=== PATIENT | male | born 1945 | race Caucasian/White ===

== ENCOUNTER → 2020-06-28 10:45 | Outpatient (BNVA) | payer MEDICARE, SELFPAY | PROVIDERS: PCP Internal Medicine; Visit Provider Internal Medicine | DX: I48.19 Other persistent atrial fibrillation (principal); Z51.81 Encounter for therapeutic drug level monitoring; Z79.01 Long term (current) use of anticoagulants | CPT/HCPCS: 85610; 99211 ==

== ENCOUNTER → 2020-07-13 10:02 | Outpatient (BNVA) | payer MEDICARE, SELFPAY | PROVIDERS: PCP Internal Medicine; Referring Provider Internal Medicine; Visit Provider Internal Medicine | DX: I48.19 Other persistent atrial fibrillation (principal); Z51.81 Encounter for therapeutic drug level monitoring; Z79.01 Long term (current) use of anticoagulants | CPT/HCPCS: 85610; 99211 ==

== ENCOUNTER → 2020-07-27 10:31 | Outpatient (BNVA) | payer MEDICARE, SELFPAY | PROVIDERS: PCP Internal Medicine; Visit Provider Internal Medicine | DX: I48.19 Other persistent atrial fibrillation (principal); Z51.81 Encounter for therapeutic drug level monitoring; Z79.01 Long term (current) use of anticoagulants | CPT/HCPCS: 85610; 99211 ==

== ENCOUNTER 2020-08-03 12:27 | Outpatient (REF) | payer MEDICARE, SELFPAY ==
--- NOTE | 2020-08-03 | US_ITS ---
EXAMINATION: US RETROPERITONEAL LIMITED (RENAL ONLY) CLINICAL INFORMATION: Malignant neoplasm of left kidney. COMPARISON: CT abdomen and pelvis 01/06/2020. Renal ultrasound 09/10/2018. Ultrasound abdomen 07/08/2017. TECHNIQUE: Real-time imaging of the kidneys. FINDINGS: RIGHT KIDNEY: 14.5 x 6.7 x 6.2 cm (SAG x AP x TRV). The kidney is normal in size, contour, and echogenicity. Renal cortical thickness is normal. No calculi or focal parenchymal lesions. No hydronephrosis. LEFT KIDNEY: Surgically absent. US/US renal BI IMPRESSION: Surgically absent left kidney with no mass in the resection bed. Normal appearance of the right kidney.
--- NOTE | 2020-08-03 13:04 | XR_ITS ---
EXAMINATION: XR CHEST CLINICAL INFORMATION: Malignant neoplasm of left kidney COMPARISON: Prior chest CT March 2020 Chest x-ray January 2020 TECHNIQUE: 2 views of the chest FINDINGS: Lungs clear. Cardiac silhouette mediastinum and pulmonary vascularity normal except for a hiatal hernia with air-fluid levels unchanged. Spondylosis of the dorsal spine. XR/XR chest 2V IMPRESSION: No acute disease. Hiatal hernia.
== END 2020-08-03 12:28 | disposition home or self-care (01) ==
LOC: HO.US 12:27
PROVIDERS: PCP Internal Medicine; Visit Provider Urology
DX: C64.2 Malignant neoplasm of left kidney, except renal pelvis (principal)
CPT/HCPCS: 71046; 76775

== ENCOUNTER → 2020-08-11 14:48 | Outpatient (BNVA) | payer MEDICARE, SELFPAY | PROVIDERS: PCP Internal Medicine; Referring Provider Internal Medicine; Visit Provider Urology | DX: Z76.89 Persons encountering health services in other specified circumstances (principal) | CPT/HCPCS: Q3014 ==

== ENCOUNTER → 2020-08-24 10:38 | Outpatient (BNVA) | payer MEDICARE, SELFPAY | PROVIDERS: PCP Internal Medicine; Visit Provider Internal Medicine | DX: I48.19 Other persistent atrial fibrillation (principal); Z51.81 Encounter for therapeutic drug level monitoring; Z79.01 Long term (current) use of anticoagulants | CPT/HCPCS: 85610; 99211 ==

== ENCOUNTER 2020-09-19 13:30 | Outpatient (REF) | payer MEDICARE, SELFPAY | END 2020-09-19 13:31 | disposition home or self-care (01) | LOC: CF 13:30 | PROVIDERS: Visit Provider Internal Medicine | DX: Z13.89 Encounter for screening for other disorder (principal) ==

== ENCOUNTER → 2020-09-19 13:56 | Outpatient (BNV) | payer MEDICARE, SELFPAY | PROVIDERS: PCP Internal Medicine; Visit Provider Internal Medicine Medical Oncology | DX: C64.2 Malignant neoplasm of left kidney, except renal pelvis (principal) | CPT/HCPCS: 99212; 99213; 99214 ==

== ENCOUNTER → 2020-10-05 10:36 | Outpatient (BNVA) | payer MEDICARE, SELFPAY | PROVIDERS: PCP Internal Medicine; Visit Provider Internal Medicine | DX: I48.19 Other persistent atrial fibrillation (principal); Z51.81 Encounter for therapeutic drug level monitoring; Z79.01 Long term (current) use of anticoagulants | CPT/HCPCS: 85610; 99211 ==

== ENCOUNTER → 2020-10-26 10:40 | Outpatient (BNVA) | payer MEDICARE, SELFPAY | PROVIDERS: PCP Internal Medicine; Visit Provider Internal Medicine | DX: I48.19 Other persistent atrial fibrillation (principal); Z51.81 Encounter for therapeutic drug level monitoring; Z79.01 Long term (current) use of anticoagulants | CPT/HCPCS: 85610; 99211 ==

== ENCOUNTER → 2020-11-16 10:54 | Outpatient (BNVA) | payer MEDICARE, SELFPAY | PROVIDERS: PCP Internal Medicine; Visit Provider Internal Medicine | DX: I48.19 Other persistent atrial fibrillation (principal); Z51.81 Encounter for therapeutic drug level monitoring; Z79.01 Long term (current) use of anticoagulants | CPT/HCPCS: 85610; 99211 ==

== ENCOUNTER → 2020-12-14 10:27 | Outpatient (BNVA) | payer MEDICARE, SELFPAY | PROVIDERS: PCP Internal Medicine; Visit Provider Internal Medicine | DX: I48.19 Other persistent atrial fibrillation (principal); Z51.81 Encounter for therapeutic drug level monitoring; Z79.01 Long term (current) use of anticoagulants | CPT/HCPCS: 85610; 99211 ==

== ENCOUNTER → 2021-01-04 10:32 | Outpatient (BNVA) | payer MEDICARE, SELFPAY | PROVIDERS: PCP Internal Medicine; Visit Provider Internal Medicine | DX: I48.19 Other persistent atrial fibrillation (principal); Z79.01 Long term (current) use of anticoagulants; Z51.81 Encounter for therapeutic drug level monitoring | CPT/HCPCS: 85610; 99211 ==

== ENCOUNTER → 2021-01-15 13:03 | Outpatient (BNVA) | payer MEDICARE, SELFPAY | PROVIDERS: PCP Internal Medicine; Visit Provider Internal Medicine | DX: I48.19 Other persistent atrial fibrillation (principal); Z79.01 Long term (current) use of anticoagulants; Z51.81 Encounter for therapeutic drug level monitoring | CPT/HCPCS: 85610; 99211 ==

== ENCOUNTER 2021-01-17 09:02 | Outpatient (RCR) | payer MEDICARE, SELFPAY | END 2021-01-19 11:26 | disposition home or self-care (01) | LOC: HO.WCC 09:02 | PROVIDERS: Visit Provider Surgery | DX: I87.303 Chronic venous hypertension (idiopathic) without complications of bilateral lower extremity (principal) | CPT/HCPCS: 99212 ==

== ENCOUNTER 2021-01-18 11:57 | Outpatient (REF) | payer MEDICARE, SELFPAY ==
[2021-01-18 13:30] LABS: Blood Urea Nitrogen 15 mg/dL (9-16); Estimated Glomerular Filt Rate > 60
== END 2021-01-18 11:58 | disposition home or self-care (01) ==
LOC: HO.LAB 11:57
PROVIDERS: Visit Provider Urology
DX: C64.9 Malignant neoplasm of unspecified kidney, except renal pelvis (principal)
CPT/HCPCS: 36415; 82565; 84520

== ENCOUNTER 2021-01-23 10:58 | Outpatient (REF) | payer MEDICARE, SELFPAY ==
--- NOTE | ~2021-01-23 | CT_ITS ---
EXAMINATION: CT ABDOMEN WITHOUT AND WITH CONTRAST CLINICAL INFORMATION: Malignant neoplasm of unspecified kidney. COMPARISON: Renal ultrasound 08/03/2020. TECHNIQUE: Contiguous axial thin section helical images of the abdomen were performed before and after the administration of oral contrast and 85 mL of Omnipaque 350 intravenous contrast. The data set was reformatted in the coronal and sagittal planes and reviewed on an independent workstation. This CT examination was performed using dose optimization techniques as appropriate, variously including the following: *Automated exposure control *Adjustment of mA and/or kV according to patient size (this includes techniques or standardized protocols for targeted exams where dose is matched to indication/reason for exam; i.e. extremities or head) *Use of iterative reconstruction technique DLP: 1150 mGy-cm. FINDINGS: LUNG BASES: The lung bases are clear. The heart size is normal. No pericardial effusion seen. There is a large hiatal hernia. LIVER, GALLBLADDER, AND BILIARY TREE: The liver is homogeneous in density, normal size and normal contour. No focal lesion or intrahepatic ductal dilatation seen. The gallbladder is unremarkable with no radiopaque calculi. PANCREAS: The pancreas is homogeneous in density and appears unremarkable. SPLEEN: The spleen is normal size and density. ADRENAL GLANDS AND KIDNEYS: Adrenal glands are unremarkable. The left kidney has been surgically removed. The right kidney is normal size, shape and density. There is no radiopaque renal calculi, enhancing renal mass, cyst or hydronephrosis. Right kidney measures 12.2 cm in length. BOWEL LOOPS: There is scattered stool and gas seen throughout the colon without significant distention. The small bowel loops are normal caliber. There is no free air, free fluid or inflammatory process. There is a small umbilical hernia containing fat. LYMPH NODES: No abnormal-sized retroperitoneal or mesenteric lymph nodes seen. VASCULAR: There is proximal abdominal aortic ectasia without dilation. BONES: No lytic or sclerotic process seen. There are degenerative disc changes and spondylosis with vacuum disc phenomena throughout the lumbar spine. There is moderate right L4-L5 and bilateral L3-L4 and L2-L3 facet joint arthropathy. No lytic process seen. CT/CT abdomen wo/w con IMPRESSION: Left nephrectomy. The right kidney is unremarkable. No abnormal-sized retroperitoneal lymph nodes seen. Small umbilical hernia containing fat.
[2021-01-23] MEDS: iohexoL 350 MG/ML 100 ML INFUS..BTL IV (12:48)
== END 2021-01-23 10:59 | disposition home or self-care (01) ==
LOC: HO.CT 10:58
PROVIDERS: Visit Provider Urology
DX: I48.19 Other persistent atrial fibrillation (principal); C64.9 Malignant neoplasm of unspecified kidney, except renal pelvis; Z51.81 Encounter for therapeutic drug level monitoring; Z79.01 Long term (current) use of anticoagulants
CPT/HCPCS: 74170; 85610; 99211; Q9967

== ENCOUNTER → 2021-02-01 10:42 | Outpatient (BNVA) | payer MEDICARE, SELFPAY | PROVIDERS: Visit Provider Internal Medicine | DX: I48.19 Other persistent atrial fibrillation (principal); Z51.81 Encounter for therapeutic drug level monitoring; Z79.01 Long term (current) use of anticoagulants | CPT/HCPCS: 85610; 99211 ==

== ENCOUNTER → 2021-02-07 10:48 | Outpatient (BNVA) | payer MEDICARE, SELFPAY | PROVIDERS: Visit Provider Internal Medicine | DX: I48.19 Other persistent atrial fibrillation (principal); Z51.81 Encounter for therapeutic drug level monitoring; Z79.01 Long term (current) use of anticoagulants | CPT/HCPCS: 85610; 99211 ==

== ENCOUNTER → 2021-03-21 10:26 | Outpatient (BNVA) | payer MEDICARE, SELFPAY | PROVIDERS: PCP Internal Medicine; Visit Provider Internal Medicine | DX: I48.19 Other persistent atrial fibrillation (principal); Z51.81 Encounter for therapeutic drug level monitoring; Z79.01 Long term (current) use of anticoagulants | CPT/HCPCS: 85610; 99211 ==

== ENCOUNTER → 2021-04-13 11:11 | Outpatient (BNVA) | payer MEDICARE, SELFPAY | PROVIDERS: PCP Internal Medicine; Visit Provider Internal Medicine | DX: I48.19 Other persistent atrial fibrillation (principal); Z51.81 Encounter for therapeutic drug level monitoring; Z79.01 Long term (current) use of anticoagulants | CPT/HCPCS: 85610; 99211 ==

== ENCOUNTER 2021-04-21 11:19 | Emergency (ER) | payer MEDICARE, SELFPAY ==
[2021-04-21 11:26] VITALS: BP 172/79; PULSE 73; RESP 17; TEMP 36.6; O2SAT 96; BMI 41.1
--- NOTE | 2021-04-21 11:42 | ED.GENADULT ---
HPI - General Adult General Chief complaint: General Medical Stated complaint: Cellulitis Time Seen by Provider: 04/21/21 11:42 Source: patient Mode of arrival: ambulatory Limitations: no limitations History of Present Illness HPI narrative: 75 yo male with hx of afib, HTN, chronic LE swelling has been on oral antibiotics since december for a LE rash, not able to use stockings cannot put them on himself, seeing a lymphedema doctor soon, sent by his PCP for IV abx from [facility] as he states they cannot do anything else for him at this point, he is not on antibiotics or ointments now, no change in swelling but notes some more weeping, no other complaints or associated symptoms MD complaint: skin lesions Onset (ago): month(s) Location: left, right and lower extremity Radiation: non-radiation Severity: mild Quality: aching Pain Consistency: intermittent Relieving factors: none Exacerbating factors: none Associated symptoms: other (chronic swelling and skin rash) Treatments prior to arrival: none Related Data Home Medications Medication Instructions Recorded Confirmed lisinopril 40 mg tablet 40 mg PO DAILY 07/27/20 04/13/21 lovastatin 40 mg tablet 40 mg PO DAILY 07/27/20 04/13/21 metoprolol tartrate 25 mg tablet 25 mg PO BID 07/27/20 04/13/21 omeprazole 40 mg capsule,delayed 40 mg PO DAILY 07/27/20 04/13/21 release ferrous sulfate 325 mg (65 mg 325 mg PO DAILY 09/19/20 04/13/21 iron) tablet (iron) multivitamin-ferrous 1 tab PO DAILY 09/19/20 04/13/21 fumarate-folic acid 18 mg-400 mcg tablet (Centrum) indapamide 1.25 mg tablet 1.25 mg PO DAILY 01/23/21 04/13/21 betamethasone valerate 0.1 % TOPICAL 04/13/21 04/13/21 topical ointment cephalexin 500 mg capsule 500 mg PO BID 04/13/21 04/13/21 doxycycline monohydrate 100 mg 100 mg PO BID 04/13/21 04/13/21 tablet Previous Rx's Medication Instructions Recorded warfarin 5 mg tablet 5 mg PO DAILY #90 tab 06/28/20 finasteride 5 mg tablet 5 mg PO DAILY 90 Days #90 tab 02/01/21 sennosides 8.6 mg-docusate sodium 1 tab-cap PO BID #60 tab 02/14/21 50 mg tablet (Senna-S) tamsulosin 0.4 mg capsule 0.4 mg PO BEDTIME #30 cap 03/05/21 clotrimazole 1 %-betamethasone See Rx Instructions .ROUTE 04/21/21 0.05 % cream-zinc ox 20 % paste .COMPLEX #135 g topical warren.stocking,knee,reg,smal #12 ea 04/21/21 (T.E.D. Anti-Embolism Stocking) Allergies Allergy/AdvReac Type Severity Reaction Status Date / Time aspirin [ASPIRIN] Allergy Unknown GI BLEED Verified 04/21/21 11:25 Review of Systems Review of Systems: Constitutional : No Fever, No Chills ENT/Mouth : No sore throat, No Rhinorrhea Eyes: No Eye Pain, No Swelling, No Redness Cardiovascular : No Chest Pain, No SOB, pos LE edema Respiratory : No Cough, No Sputum Gastrointestinal : No Nausea, No Vomiting, No Diarrhea, No abdominal Pain Genitourinary : No Dysuria, No Hematuria Musculoskeletal : No joint pain, No Myalgias, No Joint Swelling Skin : No Skin Lesions, positive skin rash Neuro : No Weakness, No Numbness, No Headache Psych : No Anxiety, No Depression Heme/Lymph: No Bruising, No Bleeding,No Lymphadenopathy Endocrine : No Polyuria, No Polydipsia All other systems reviewed and are negative [facility] Past Medical History Attestation statement: The following information was validated with the patient. Medical History (Updated 04/21/21 @ 14:34 by Diandra Smith DO) Afib BPH (benign prostatic hyperplasia) Chronic venous stasis dermatitis GERD (gastroesophageal reflux disease) H/O renal cell cancer Hyperlipemia Hypertension Surgical History History of nephrectomy, left Family History Family History (Updated 09/19/20 @ 14:28 by Jonna Mitchell RN) Father Colon cancer Social History Social History (Updated 04/21/21 @ 12:08 by Diandra Smith DO) Alcohol intake: current Alcohol intake frequency: holidays/special occasions only Patient Tobacco Use Status: Never used Tobacco Advance Directives: Yes Advance Directives Information Provided: Yes Advance Directives on File: No Physical Exam Vital Signs: Vital Signs: Last Vital Signs Temp 98.7 F 04/21/21 15:34 Pulse 67 04/21/21 15:34 Resp 16 04/21/21 15:34 BP 160/79 H 04/21/21 15:34 Pulse Ox 97 04/21/21 15:34 Body Mass Index 41.1 Appearance: Alert. Oriented X3. No acute distress. Eyes: Pupils equal, round and reactive to light. ENT: Pharynx normal. Neck: Normal inspection. Neck supple. CVS: Normal heart rate and rhythm. Pulses normal. Respiratory: No respiratory distress. Breath sounds normal. Abdomen: Soft and nontender. Skin: Skin warm and dry. Normal skin color. Normal skin turgor. Extremities: bilateral LE pitting 1 to 2+ edema, hyperpigmentation and scaling rash to lower extremities with yellow crusting but no ulcers, no fluctuance, minimal pink skin, no warmth Neuro: Oriented X 3. No motor deficit. No sensory deficit. Course Course Course Narrative: MDM: 75 yo male with hx of afib, HTN, chronic LE swelling has been on oral antibiotics since december for a LE rash, not able to use stockings cannot put them on himself, seeing a lymphedema doctor soon, sent by his PCP for IV abx from [facility] as he states they cannot do anything else for him at this point, he is not on antibiotics or ointments now, no change in swelling but notes some more weeping, no other complaints or associated symptoms at this time his legs do not appear infected, he has no open wounds, he needs good cleaning, topical ointments, AMBER stockings, this is chronic venous stasis dermatitis he has 2+ DP pulses, will refer to VNA as well as our wound center and he needs topical anti fungal and steroids at this time, I do not feel that he needs admission or IV antibiotics as there is no acute cellulitis laying flat no signs of resp distress, no signs of clinical CHF, will instruct patient to follow up with [facility]NA at home and wound care center Discharge Plan Discharge Clinical Impression: Chronic venous stasis dermatitis Patient Disposition: Home, Self-Care Instructions: Stasis Dermatitis (ED) Additional Instructions: return to ED for any worsening symptoms or concerns wear stockings INR 3.5 hold dose x 2 days recheck INR Prescriptions: New clotrimazole-betameth dip-zinc 1-0.05-20 % combo pack See Rx Instructions .ROUTE .COMPLEX Qty: 135 RF: 0 (DME) T.E.D. Anti-Embolism Stocking Misc See Rx Instructions .Route Qty: 12 RF: 0 No Action finasteride 5 mg tablet 5 mg PO DAILY 90 Days Qty: 90 RF: 3 tamsulosin 0.4 mg capsule 0.4 mg PO BEDTIME Qty: 30 RF: 2 ferrous sulfate [iron] 325 mg (65 mg iron) Tablet 325 mg PO DAILY RF: 0 Centrum 18-400 mg-mcg Tablet 1 tab PO DAILY RF: 0 sennosides-docusate sodium [Senna-S] 8.6-50 mg Tablet 1 tab-cap PO BID Qty: 60 RF: 5 warfarin 5 mg tablet 5 mg PO DAILY Qty: 90 RF: 0 metoprolol tartrate 25 mg tablet 25 mg PO BID RF: 0 lovastatin 40 mg tablet 40 mg PO DAILY RF: 0 omeprazole 40 mg capsule,delayed release(DR/EC) 40 mg PO DAILY RF: 0 lisinopril 40 mg tablet 40 mg PO DAILY RF: 0 indapamide 1.25 mg tablet 1.25 mg PO DAILY RF: 0 cephalexin 500 mg capsule 500 mg PO BID RF: 0 doxycycline monohydrate 100 mg tablet 100 mg PO BID RF: 0 betamethasone valerate 0.1 % ointment topical RF: 0 Referrals: [facility] [Outside] - 2 days (PLEASE CALL ABOVE NUMBER IF YOU HAVE NOT HEARD FROM A NURSE BY NOON ON 04/22/21.) Sydney Bardales MD [Primary Care Provider] - 5 days Interventions: ED Discharge Assessment Last Done: 04/21/21 15:38 Discharge Date/Time: 04/21/21 15:38
[2021-04-21 12:32] LABS: MANUAL DIFF FLAG NO
[2021-04-21 12:39] LABS: Basophils Percent Auto 0.5 % (0-2); Eosinophils Absolute Auto 0.3 X10*3/uL (0.0-0.4); Eosinophils Percent Auto 4.1 % (0-4); Hematocrit 38.6 % (42-52); Hemoglobin 12.9 g/dl (14.0-18.0); Imm Gran Abs Auto 0.02 X10*3/uL (0.00-0.03); Imm Gran Pct Auto 0.3 % (0.0-0.4); Lymphocytes Absolute Auto 0.7 X10*3/uL (1.2-4.9); Lymphocytes Percent Auto 10.9 % (20-40); Mean Corpuscular HGB Conc 33.4 g/dl (31.0-36.0); Mean Corpuscular Hemoglobin 34.3 pg (27.0-33.0); Mean Corpuscular Volume 102.7 fL (80-98); Mean Platelet Volume 9.8 fL (9.4-12.4); Monocytes Absolute Auto 0.5 X10*3/uL (0.1-1.2); Monocytes Percent Auto 8.6 % (2-11); Neutrophils Absolute Auto 4.6 X10*3/uL (2.0-8.3); Neutrophils Percent Auto 75.6 % (45-73); Platelet Count 188 X10*3/uL (160-400); Red Blood Count 3.76 X10*6/uL (4.60-5.80); Red Cell Distribution Width 13.4 % (11.0-16.0); White Blood Count 6.1 X10*3/uL (4.8-10.8)
[2021-04-21 12:49] LABS: INTERNATIONAL NORM RATIO 3.5 (0.9-1.1); Prothrombin Time 40.3 SEC (9.9-13.0)
[2021-04-21 12:59] VITALS: BP 167/77; PULSE 68; RESP 18; TEMP 36.6; O2SAT 97
[2021-04-21 13:03] LABS: Anion Gap 13 (12-20); Blood Urea Nitrogen 15 mg/dL (9-16); C Reactive Protein 0.73 mg/dL (< or = 0.50); Calcium 8.8 mg/dL (8.4-10.2); Carbon Dioxide 28 mmol/L (22-29); Chloride 104 mmol/L (96-108); Creatinine Clr Calc Pharmacy 81.9; Estimated Glomerular Filt Rate > 60; Glucose Random 113 mg/dL (60-115); Potassium 3.9 mmol/L (3.3-5.1); Sodium 141 mmol/L (135-145)
[2021-04-21 13:08] LABS: B Type Natriuretic Peptide 361 pg/mL (<100)
[2021-04-21 14:15] VITALS: BP 161/79; PULSE 78; RESP 18; TEMP 36.4; O2SAT 98
--- NOTE | 2021-04-21 15:13 | MHC.CM.PN ---
Pt presents w/increased swelling, discomfort and venous stasis dermatitis to BLE, CM met w/pt who reports he lives alone, has a cleaning lady weekly through [facility] and no other services, pt reports having a walker and cane at home and does not use them around the house, pt does his own cooking and ADL's however has not been able to manage his BLE wounds. ED provider and pt both in agreement he needs VNA services. Pt's first choice was [facility] however additional referral made to [facility] who was the only [facility]NA who responded to referral. D/C PLAN: [facility], FRIEND FOR TRANSPORT
[2021-04-21 15:34] VITALS: BP 160/79; PULSE 67; RESP 16; TEMP 37.1; O2SAT 97
--- NOTE | 2021-04-21 15:35 | PC.NURSE ---
DRESSING WAS APPLIED TO PATIENT BOTH FEET BY THIS PCT .
== END 2021-04-21 15:38 | disposition home or self-care (01) ==
PROVIDERS: Emergency Provider Emergency Medicine; PCP Internal Medicine
DX: I87.2 Venous insufficiency (chronic) (peripheral) (principal); M79.89 Other specified soft tissue disorders; I48.91 Unspecified atrial fibrillation; I10 Essential (primary) hypertension; Z85.53 Personal history of malignant neoplasm of renal pelvis; Z79.01 Long term (current) use of anticoagulants; Z79.899 Other long term (current) drug therapy
CPT/HCPCS: 36415; 80048; 83880; 85025; 85610; 86140; 97161; 99283; 99284

== ENCOUNTER → 2021-04-24 16:24 | Outpatient (BNVA) | payer MEDICARE, SELFPAY | PROVIDERS: PCP Internal Medicine; Visit Provider Internal Medicine | DX: I48.19 Other persistent atrial fibrillation (principal); Z51.81 Encounter for therapeutic drug level monitoring; Z79.01 Long term (current) use of anticoagulants | CPT/HCPCS: Q3014 ==

== ENCOUNTER → 2021-05-04 12:04 | Outpatient (BNVA) | payer MEDICARE, SELFPAY | PROVIDERS: PCP Internal Medicine; Visit Provider Internal Medicine ==

== ENCOUNTER 2021-05-09 12:44 | Outpatient (RCR) | payer MEDICARE, SELFPAY | END 2021-05-17 10:47 | disposition home or self-care (01) | LOC: HO.WCC 12:44 | PROVIDERS: PCP Internal Medicine; Visit Provider Surgery | DX: I89.0 Lymphedema, not elsewhere classified (principal) | CPT/HCPCS: 99211; Q3014 ==

== ENCOUNTER → 2021-05-23 10:43 | Outpatient (BNVA) | payer MEDICARE, SELFPAY | PROVIDERS: PCP Internal Medicine; Visit Provider Internal Medicine | DX: I48.19 Other persistent atrial fibrillation (principal); Z51.81 Encounter for therapeutic drug level monitoring; Z79.01 Long term (current) use of anticoagulants | CPT/HCPCS: 85610; 99211 ==

== ENCOUNTER 2021-06-01 07:35 | Inpatient (IN) | payer MEDICARE, SELFPAY ==
--- NOTE | 2021-06-01 07:45 | ED_ITS ---
HPI - Skin/Abscess/Foreign Bdy General Chief complaint: General Medical Stated complaint: cellulitis Time Seen by Provider: 06/01/21 07:45 Source: patient, EMS and old records reviewed Mode of arrival: EMS Limitations: no limitations History of Present Illness MD complaint: lesion and discoloration Onset (ago): day(s) (1) Tetanus up to date: yes Location: RLE Severity: moderate Quality: aching and constant Pain Consistency: constant Relieving factors: none Exacerbating factors: palpation Context: other (hx of lymphedema with prior chronic wounds that have been treated well by wound care and VNA - both wound care and VNA released him) Associated symptoms: chills, nausea and malaise Treatments prior to arrival: bandages and OTC topical medication Related Data Home Medications Medication Instructions Recorded Confirmed lisinopril 40 mg tablet 40 mg PO DAILY 07/27/20 06/01/21 lovastatin 40 mg tablet 40 mg PO DAILY 07/27/20 06/01/21 metoprolol tartrate 25 mg tablet 25 mg PO BID 07/27/20 06/01/21 omeprazole 40 mg capsule,delayed 40 mg PO DAILY 07/27/20 06/01/21 release ferrous sulfate 325 mg (65 mg 325 mg PO DAILY 09/19/20 06/01/21 iron) tablet (iron) multivitamin-ferrous 1 tab PO DAILY 09/19/20 06/01/21 fumarate-folic acid 18 mg-400 mcg tablet (Centrum) indapamide 1.25 mg tablet 1.25 mg PO DAILY 01/23/21 06/01/21 warfarin 5 mg tablet 7.5 mg PO DAILY 06/01/21 06/01/21 Previous Rx's Medication Instructions Recorded finasteride 5 mg tablet 5 mg PO DAILY 90 Days #90 tab 02/01/21 sennosides 8.6 mg-docusate sodium 1 tab-cap PO BID #60 tab 02/14/21 50 mg tablet (Senna-S) clotrimazole 1 %-betamethasone See Rx Instructions .ROUTE 04/21/21 0.05 % cream-zinc ox 20 % paste .COMPLEX #135 g topical warren.stocking,knee,reg,smal #12 ea 04/21/21 (T.E.D. Anti-Embolism Stocking) tamsulosin 0.4 mg capsule 0.4 mg PO BEDTIME #90 cap 05/29/21 Allergies Allergy/AdvReac Type Severity Reaction Status Date / Time aspirin [ASPIRIN] Allergy Unknown GI BLEED Verified 05/23/21 10:44 Review of Systems Review of Systems: Constitutional : No Fever, pos Chills ENT/Mouth : No sore throat, No Rhinorrhea Eyes: No Eye Pain, No Swelling, No Redness Cardiovascular : No Chest Pain, No SOB Respiratory : No Cough, No Sputum Gastrointestinal : pos Nausea, No Vomiting, No Diarrhea, No abdominal Pain Genitourinary : No Dysuria, No Hematuria Musculoskeletal : No joint pain, No Myalgias, No Joint Swelling Skin : No Skin Lesions, positive skin rash Neuro : No Weakness, No Numbness, No Headache Psych : No Anxiety, No Depression Heme/Lymph: No Bruising, No Bleeding,No Lymphadenopathy Endocrine : No Polyuria, No Polydipsia All other systems reviewed and are negative [facility] Past Medical History Attestation statement: The following information was validated with the patient. Medical History Afib BPH (benign prostatic hyperplasia) Chronic venous stasis dermatitis GERD (gastroesophageal reflux disease) H/O renal cell cancer Hyperlipemia Hypertension Surgical History History of nephrectomy, left Family History Family History (Updated 09/19/20 @ 14:28 by Jonna Mitchell RN) Father Colon cancer Social History Social History Alcohol intake: current Alcohol intake frequency: holidays/special occasions only Patient Tobacco Use Status: Never used Tobacco Advance Directives: No Physical Exam Vital Signs: Vital Signs: Last Vital Signs Temp 99.5 F 06/01/21 08:04 Pulse 98 06/01/21 08:04 Resp 20 06/01/21 08:04 BP 123/57 L 06/01/21 08:30 Pulse Ox 96 06/01/21 08:04 Body Mass Index 40.0 Appearance: Alert. Oriented X3. No acute distress. Eyes: Pupils equal, round and reactive to light. ENT: Pharynx normal. Neck: Normal inspection. Neck supple. CVS: Normal heart rate and rhythm. Pulses normal. Respiratory: No respiratory distress. Breath sounds normal. Abdomen: Soft and nontender. Skin: rash noted, normal turgor Extremities: RLE warm to touch with ttp and marked erythema from ankle to knee area no open wounds or abscess noted, LLE chronic venous stasis dermatitis no signs of infection - markedly improved from last visit Neuro: Oriented X 3. No motor deficit. No sensory deficit. MDM - Skin/Abscess/Foreign Bdy MDM Narrative Medical decision making narrative: 75 yo male with hx of afib on coumadin, BPH, chronic lymphedema with recent DC from [facility] and wound care center at this time noted overnight chills nausea and pain/redness of RLE - exam consistent with cellulitis - will obtain labs, cultures, IV antibiotics and planned admit Lab Data Result diagrams: 06/01/21 08:36 06/01/21 08:36 Labs: Lab Results 06/01/21 06/01/21 06/01/21 Range/Units 08:35 08:36 08:36 WBC 5.4 (4.8-10.8) X10*3/uL RBC 3.67 L (4.60-5.80) X10*6/uL Hgb 12.6 L (14.0-18.0) g/dl Hct 37.6 L (42-52) % MCV 102.5 H (80-98) fL MCH 34.3 H (27.0-33.0) pg MCHC 33.5 (31.0-36.0) g/dl RDW 13.5 (11.0-16.0) % Plt Count 171 (160-400) X10*3/uL MPV 9.6 (9.4-12.4) fL Immature Gran % (Auto) 0.2 (0.0-0.4) % Neut % (Auto) 94.5 H (45-73) % Lymph % (Auto) 3.6 L (20-40) % [place] % (Auto) 0.9 L (2-11) % Eos % (Auto) 0.6 (0-4) % Baso % (Auto) 0.2 (0-2) % Lymph # (Auto) 0.2 L (1.2-4.9) X10*3/uL [place] # (Auto) 0.1 (0.1-1.2) X10*3/uL Eos # (Auto) 0.0 (0.0-0.4) X10*3/uL Baso # (Auto) 0.0 (0.0-0.2) X10*3/uL Abs Immat Gran (auto) 0.01 (0.00-0.03) X10*3/uL Absolute Neuts (auto) 5.1 (2.0-8.3) X10*3/uL Absolute Nucleated RBC 0.000 (0.0-0.012) X10*3/uL Nucleated RBC % (auto) 0.0 (0.0-0.2) /100WBC Smear Tech's Comments VERIFIED PT (9.9-13.0) SEC INR (0.9-1.1) APTT (24.1-38.0) SEC Sodium 141 (135-145) mmol/L Potassium 3.8 (3.3-5.1) mmol/L Chloride 105 (96-108) mmol/L Carbon Dioxide 26 (22-29) mmol/L Anion Gap 14 (12-20) BUN 13 (9-16) mg/dL Creatinine 1.04 (0.5-1.4) mg/dL Estim Creat Clear Calc 85.6 Estimated GFR > 60 Random Glucose 90 (60-115) mg/dL Lactic Acid 2.8 H* (0.5-2.0) mmol/L Calcium 9.0 (8.4-10.2) mg/dL Magnesium (1.6-2.6) mg/dL Total Bilirubin (0.0-1.0) mg/dL Direct Bilirubin (0.0-0.5) mg/dL AST (5-37) U/L ALT (0-40) U/L Alkaline Phosphatase (39-117) U/L Total Protein (6.5-8.0) g/dL Albumin (3.5-5.0) g/dL COVID-19 (JOEY) (Negative) COVID-19 Clin Com 06/01/21 06/01/21 06/01/21 Range/Units 08:36 08:36 08:37 WBC (4.8-10.8) X10*3/uL RBC (4.60-5.80) X10*6/uL Hgb (14.0-18.0) g/dl Hct (42-52) % MCV (80-98) fL MCH (27.0-33.0) pg MCHC (31.0-36.0) g/dl RDW (11.0-16.0) % Plt Count (160-400) X10*3/uL MPV (9.4-12.4) fL Immature Gran % (Auto) (0.0-0.4) % Neut % (Auto) (45-73) % Lymph % (Auto) (20-40) % [place] % (Auto) (2-11) % Eos % (Auto) (0-4) % Baso % (Auto) (0-2) % Lymph # (Auto) (1.2-4.9) X10*3/uL [place] # (Auto) (0.1-1.2) X10*3/uL Eos # (Auto) (0.0-0.4) X10*3/uL Baso # (Auto) (0.0-0.2) X10*3/uL Abs Immat Gran (auto) (0.00-0.03) X10*3/uL Absolute Neuts (auto) (2.0-8.3) X10*3/uL Absolute Nucleated RBC (0.0-0.012) X10*3/uL Nucleated RBC % (auto) (0.0-0.2) /100WBC Smear Tech's Comments PT 36.5 H (9.9-13.0) SEC INR 3.1 H (0.9-1.1) APTT 37.6 (24.1-38.0) SEC Sodium (135-145) mmol/L Potassium (3.3-5.1) mmol/L Chloride (96-108) mmol/L Carbon Dioxide (22-29) mmol/L Anion Gap (12-20) BUN (9-16) mg/dL Creatinine (0.5-1.4) mg/dL Estim Creat Clear Calc Estimated GFR Random Glucose (60-115) mg/dL Lactic Acid (0.5-2.0) mmol/L Calcium (8.4-10.2) mg/dL Magnesium 1.2 L* (1.6-2.6) mg/dL Total Bilirubin 1.0 (0.0-1.0) mg/dL Direct Bilirubin 0.4 (0.0-0.5) mg/dL AST 19 (5-37) U/L ALT 11 (0-40) U/L Alkaline Phosphatase 113 (39-117) U/L Total Protein 6.2 L (6.5-8.0) g/dL Albumin 3.6 (3.5-5.0) g/dL COVID-19 (JOEY) Negative (Negative) COVID-19 Clin Com See Note Discharge Plan Discharge Clinical Impression: Lymphedema, Cellulitis, Acidosis, lactic, Hypomagnesemia Patient Disposition: Admitted As Inpatient
[2021-06-01 08:04] VITALS: BP 112/66; BP 136/42; PULSE 80; PULSE 98; RESP 20; TEMP 37.5; O2SAT 96; BMI 40.0
[2021-06-01 08:30] VITALS: BP 123/57
[2021-06-01 08:54] LABS: Basophils Percent Auto 0.2 % (0-2); Eosinophils Percent Auto 0.6 % (0-4); Hematocrit 37.6 % (42-52); Hemoglobin 12.6 g/dl (14.0-18.0); Imm Gran Abs Auto 0.01 X10*3/uL (0.00-0.03); Imm Gran Pct Auto 0.2 % (0.0-0.4); Lymphocytes Absolute Auto 0.2 X10*3/uL (1.2-4.9); Lymphocytes Percent Auto 3.6 % (20-40); MANUAL DIFF FLAG SCAN; Mean Corpuscular HGB Conc 33.5 g/dl (31.0-36.0); Mean Corpuscular Hemoglobin 34.3 pg (27.0-33.0); Mean Corpuscular Volume 102.5 fL (80-98); Mean Platelet Volume 9.6 fL (9.4-12.4); Monocytes Absolute Auto 0.1 X10*3/uL (0.1-1.2); Monocytes Percent Auto 0.9 % (2-11); Neutrophils Absolute Auto 5.1 X10*3/uL (2.0-8.3); Neutrophils Percent Auto 94.5 % (45-73); Platelet Count 171 X10*3/uL (160-400); Red Blood Count 3.67 X10*6/uL (4.60-5.80); Red Cell Distribution Width 13.5 % (11.0-16.0); SCAN SMEAR FLAG 1; White Blood Count 5.4 X10*3/uL (4.8-10.8)
--- NOTE | 2021-06-01 08:59 | PHA.MEDREC ---
Pharmacy Consult ? Medication Reconciliation Pharmacy has completed the medication reconciliation. Patient confirmed warfarin dose is 7.5mg daily. Pham Mendez, SheronD
[2021-06-01 09:01] LABS: INTERNATIONAL NORM RATIO 3.1 (0.9-1.1); Prothrombin Time 36.5 SEC (9.9-13.0)
[2021-06-01 09:04] LABS: Partial Thromboplastin Time 37.6 SEC (24.1-38.0)
[2021-06-01 09:07] LABS: Anion Gap 14 (12-20); Blood Urea Nitrogen 13 mg/dL (9-16); Carbon Dioxide 26 mmol/L (22-29); Chloride 105 mmol/L (96-108); Creatinine Clr Calc Pharmacy 85.6; Estimated Glomerular Filt Rate > 60; Glucose Random 90 mg/dL (60-115); Potassium 3.8 mmol/L (3.3-5.1); Sodium 141 mmol/L (135-145)
[2021-06-01 09:10] LABS: COVID-19 Test Negative (Negative); IDNOW Serial# 9DD0AD1C
[2021-06-01 09:15] LABS: SLIDE REVIEW VERIFIED
[2021-06-01 09:17] LABS: Albumin Level 3.6 g/dL (3.5-5.0); Alkaline Phosphatase 113 U/L (39-117); Aspartate Amino Transferase 19 U/L (5-37); Bilirubin Direct 0.4 mg/dL (0.0-0.5)
[2021-06-01 09:18] LABS: Alanine Aminotransferase 11 U/L (0-40); Total Protein 6.2 g/dL (6.5-8.0)
[2021-06-01] MEDS: Piperacillin Sodium/Tazobactam 3.375 GM in 0.9 % Sodium Chloride 50 ML IV (09:27)
[2021-06-01] MEDS: vancomycin HCL 1,500 MG in 0.9 % Sodium Chloride 500 ML 333.33 MG IV (09:27)
[2021-06-01 09:33] LABS: Lactic Acid 2.8 mmol/L (0.5-2.0)
[2021-06-01 09:34] LABS: Magnesium 1.2 mg/dL (1.6-2.6)
--- NOTE | 2021-06-01 10:41 | P.HPHOSP_ITS ---
History of Present Illness Date of Service: 06/01/21 Chief Complaint: Right leg pain and redness This is a 75 yo M with a PMH of A. rodrigo on coumadin, lymphedema, Renal cancer - s/p L nephrectomy, HLD who presents to the hospital with complaints of RLE pain, swelling and redness + weeping. Patient reports that he had previously followed up at the wound care clinic and was discharged from there several weeks back. He reports that since then he has been doing fairly well but over the last several days he noticed some pain the RLE from the knee below. It was not too severe, so he did not make much of it. He reports yesterday he started having some chills and over night his pain became so severe that it woke him up from sleep and so he decided to come to the hospital. Upon arrival to the ED he had stable vitals. His RLE was erythematous, tender with edema. His cbc/bmp was within normal limits. He was given broad spec. iv antibiotics -- vancomcyin+zosyn, had cultures collected and admission was requested for further Rx of his cellulitis. Patient endorses that he has been vaccinated against COVID with J&J vaccine. Review of Systems Review of Systems: General - +chills, no fevers; +fatigue HEENT -denies blurred vision, denies headache, denies sore throat Cardiovascular - denies chest pain or palpitations, denies edema Respiratory - denies shortness of breath, coughing, wheezing Gastrointestinal - denies abdominal pain, nausea, vomiting, diarrhea - denies flank pain, denies dysuria, denies frequency or urgency Musculoskeletal - denies back pain, denies hip pain, denies knee pain, denies shoulder pain Neurological - denies any focal weakness or numbness Skin - +RLE pain, redness, swelling and weeping Psychiatric - denies any suicidal ideation, hallucinations, homicidal ideation Endocrinology - denies intolerance to hot / cold temperatures [facility] Medical History Afib BPH (benign prostatic hyperplasia) Chronic venous stasis dermatitis GERD (gastroesophageal reflux disease) H/O renal cell cancer Hyperlipemia Hypertension Family History (Updated 09/19/20 @ 14:28 by Jonna Mitchell RN) Father Colon cancer Surgical History History of nephrectomy, left Social History Alcohol intake: current Alcohol intake frequency: holidays/special occasions only Patient Tobacco Use Status: Never used Tobacco Advance Directives: No Meds Allergies Allergy/AdvReac Type Severity Reaction Status Date / Time aspirin [ASPIRIN] Allergy Unknown GI BLEED Verified 05/23/21 10:44 Active Medications: Current Medications Generic Name Dose Route Start Last Admin Trade Name Freq PRN Reason Stop Dose Admin Magnesium Sulfate 2 gm in 50 mls @ 25 mls/hr 06/01/21 09:34 Magnesium Sulfate/H2o IV 06/01/21 11:33 ONCE ONE Sodium Chloride 500 mls @ 500 mls/hr 06/01/21 09:45 Ns IV 06/01/21 10:44 .Q1H [facility] Pharmacy Consult 1 each 06/01/21 07:52 Consult Rx Perform Med Rec MISCELLANE ONCE PRN Consult order Pharmacy Consult 1 each 06/01/21 08:11 Consult Rx Vancomycin Dosing MISCELLANE DAILY PRN Consult order Home Medications Medication Instructions Recorded Confirmed Last Taken Type lisinopril 40 mg tablet 40 mg PO DAILY 07/27/20 06/01/21 05/31/21 History lovastatin 40 mg tablet 40 mg PO DAILY 07/27/20 06/01/21 05/31/21 History metoprolol tartrate 25 mg tablet 25 mg PO BID 07/27/20 06/01/21 05/31/21 History omeprazole 40 mg capsule,delayed 40 mg PO DAILY 07/27/20 06/01/21 05/31/21 History release ferrous sulfate 325 mg (65 mg 325 mg PO DAILY 09/19/20 06/01/21 05/31/21 History iron) tablet (iron) multivitamin-ferrous 1 tab PO DAILY 09/19/20 06/01/21 05/31/21 History fumarate-folic acid 18 mg-400 mcg tablet (Centrum) indapamide 1.25 mg tablet 1.25 mg PO DAILY 01/23/21 06/01/21 05/31/21 History warfarin 5 mg tablet 7.5 mg PO DAILY 06/01/21 06/01/21 05/31/21 History Physical Exam Vital Signs and Narrative: Vital Signs: Last Vital Signs Temp 99.5 F 06/01/21 08:04 Pulse 98 06/01/21 08:04 Resp 20 06/01/21 08:04 BP 123/57 L 06/01/21 08:30 Pulse Ox 96 06/01/21 08:04 Body Mass Index 40.0 Const: Other: Constitutional - Awake and Alert, No apparent distress Eyes - PERRLA, EOMI Cardiovascular - S1S2, Respiratory - Normal lung expansion, Normal respiratory effort, No respiratory distress, CTA bilaterally Gastrointestinal - NT / ND; +BS; No rebound or guarding - No CVA tenderness Extremities - no calf tenderness bilaterally, no swelling Musculoskeletal - see picutres of RLE below -- compared to L more erythematous, tender and edematous Skin - see pictures Neurological - Alert & oriented x3, No focal deficit Psychological - Appropriate affect Skin: Other: Results Labs CBC and Chem 7: 06/01/21 08:36 06/01/21 08:36 Labs: Laboratory Results - last 24 hr 06/01/21 06/01/21 06/01/21 08:35 08:36 08:36 MCV 102.5 H MCH 34.3 H MCHC 33.5 RDW 13.5 Plt Count 171 MPV 9.6 Immature Gran % (Auto) 0.2 Neut % (Auto) 94.5 H Lymph % (Auto) 3.6 L [place] % (Auto) 0.9 L Eos % (Auto) 0.6 Baso % (Auto) 0.2 Lymph # (Auto) 0.2 L [place] # (Auto) 0.1 Eos # (Auto) 0.0 Baso # (Auto) 0.0 Abs Immat Gran (auto) 0.01 Absolute Neuts (auto) 5.1 Absolute Nucleated RBC 0.000 Nucleated RBC % (auto) 0.0 Smear Tech's Comments VERIFIED PT INR APTT Anion Gap 14 Estim Creat Clear Calc 85.6 Estimated GFR > 60 Random Glucose 90 Lactic Acid 2.8 H* Calcium 9.0 Magnesium Total Bilirubin Direct Bilirubin AST ALT Alkaline Phosphatase Total Protein Albumin COVID-19 (JOEY) COVID-19 Clin Com 06/01/21 06/01/21 06/01/21 08:36 08:36 08:37 MCV MCH MCHC RDW Plt Count MPV Immature Gran % (Auto) Neut % (Auto) Lymph % (Auto) [place] % (Auto) Eos % (Auto) Baso % (Auto) Lymph # (Auto) [place] # (Auto) Eos # (Auto) Baso # (Auto) Abs Immat Gran (auto) Absolute Neuts (auto) Absolute Nucleated RBC Nucleated RBC % (auto) Smear Tech's Comments PT 36.5 H INR 3.1 H APTT 37.6 Anion Gap Estim Creat Clear Calc Estimated GFR Random Glucose Lactic Acid Calcium Magnesium 1.2 L* Total Bilirubin 1.0 Direct Bilirubin 0.4 AST 19 ALT 11 Alkaline Phosphatase 113 Total Protein 6.2 L Albumin 3.6 COVID-19 (JOEY) Negative COVID-19 Clin Com See Note Assessment and Plan (1) Cellulitis: Qualifiers: Laterality: right Site of cellulitis: extremity Site of cellulitis of extremity: lower extremity Qualified Code(s): L03.115 - Cellulitis of right lower limb Status: Acute This is a 75 yo M with a PMH of A. rodrigo on coumadin, Renal cancel - s/p L nephrectomy, Chronic lymphedema, BPH, HLD who presents to the hospital with progressive RLE pain, swelling, redness with associated chills. His presentation, work up and exam is consistent with RLE cellulitis. He will be admitted for further treatment. 1. RLE cellulitis >50% of his RLE Due to baseline lymphedema + chronic venous stasis given vancomcyin+zosyin in the ED -- will commence IV kefzol The patient does not have severe sepsis at this time. 2. Hypomagnesemia repleted IV in the ED, will repeat tomorrow and treat accordingly 3. A. fib on coumadin continue metoprolol continue coumadin -- INR is 3.1 -- can continue at his baseline dose, if increases further tomorrow, can decrease coumadin dose 4. HTN continue lisinopril 5. BPH continue tamsulosin + finasteride 6. Renal Cell Ca s/p L nephrectomy outpatient f/u with his Urology+Oncology team continue other baseline meds appropriate Due to his the severity of cellulitis (>50% of his RLE) + risk factors (history of renal cancer + lymphedema), anticipate >48 hours of IV antibiotics and hospitalization. DNR/DNI DVT pptx -- on coumadin Reports his cousin Tammy as his HCP Quality Stroke Does the patient have a stroke diagnosis?: No VTE Prior VTE?: No VTE Risk Level:: Medical - moderate - high VTE Device Contraindication: Treatment Not Indicated VTE Drug Contraindication: N/A - Med Ordered
[2021-06-01 10:51] LABS: Reflex Lactate? Lactic Acid Added
[2021-06-01] MEDS: 0.9 % Sodium Chloride 500 ML IV (11:30)
[2021-06-01] MEDS: Magnesium Sulfate/H2O 2 GM/50 ML PIGGYBACK IV (11:30)
[2021-06-01 12:17] LABS: ~Lactic Acid-LAB USE ONLY 3.3 mmol/L (0.5-2.0)
[2021-06-01] MEDS: Omeprazole 40 MG CAPSULE.DR PO (12:42)
[2021-06-01] MEDS: Ferrous Sulfate 324 MG TABLET.DR PO (12:42)
[2021-06-01] MEDS: Pravastatin Sodium 40 MG TABLET PO (12:42)
[2021-06-01] MEDS: Finasteride 5 MG TABLET PO (13:02)
[2021-06-01 13:40] LABS: Reflex Lactate? 2 Y
[2021-06-01 14:25] VITALS: BP 124/57; PULSE 91; RESP 20; O2SAT 96
--- NOTE | 2021-06-01 15:12 | PC.NURSE ---
pt here from home with bilateral leg cellulitis, pt with iv access l hand and r hand # 20. meds labs as ordered. pt o aox4 1 person assist. tolerating po. needs being met. pt changed and repositioned through out shift.
--- NOTE | 2021-06-01 15:15 | PC.NURSE ---
attempted to call report could not remain on hold any longer will retry later
[2021-06-01 16:12] LABS: ~Lactic Acid-LAB USE ONLY 3.1 mmol/L (0.5-2.0)
[2021-06-01 17:07] VITALS: BP 144/74; PULSE 85; RESP 17; TEMP 37.4; O2SAT 98
[2021-06-01] MEDS: Warfarin Sodium 7.5 MG TABLET PO (17:24)
[2021-06-01] MEDS: 0.9 % Sodium Chloride Flush 3 ML SYRINGE IVFLUSH ×2 (17:24→20:16)
[2021-06-01 18:35] VITALS: BMI 39.4
[2021-06-01] MEDS: Tamsulosin HCL 0.4 MG CAPSULE PO (20:14)
[2021-06-01] MEDS: Metoprolol Tartrate 25 MG TABLET PO (20:14)
[2021-06-01] MEDS: Sennosides/Docusate Sodium TABLET 1 TAB PO (20:14)
[2021-06-01 23:24] VITALS: BP 114/65; PULSE 75; RESP 18; TEMP 36.1; O2SAT 98
[2021-06-02 06:48] LABS: Magnesium 1.6 mg/dL (1.6-2.6)
[2021-06-02 06:52] LABS: INTERNATIONAL NORM RATIO 3.3 (0.9-1.1)
[2021-06-02 08:00] VITALS: BP 177/69; PULSE 79; RESP 18; TEMP 36.2; O2SAT 96
[2021-06-02] MEDS: Omeprazole 40 MG CAPSULE.DR PO (09:16)
[2021-06-02] MEDS: Ferrous Sulfate 324 MG TABLET.DR PO (09:17)
[2021-06-02] MEDS: Pravastatin Sodium 40 MG TABLET PO (09:17)
[2021-06-02] MEDS: Metoprolol Tartrate 25 MG TABLET PO ×2 (09:17→21:37)
[2021-06-02] MEDS: Piperacillin Sodium/Tazobactam 3.375 GM in 0.9 % Sodium Chloride 50 ML IV ×3 (09:18→21:37)
[2021-06-02] MEDS: Finasteride 5 MG TABLET PO (09:18)
[2021-06-02] MEDS: 0.9 % Sodium Chloride Flush 3 ML SYRINGE IVFLUSH ×2 (09:18→16:29)
[2021-06-02] MEDS: lisinopriL 40 MG TABLET PO (09:18)
--- NOTE | 2021-06-02 10:59 | MHC.CM.PN ---
CM MET WITH PT WHO REPORTS HE LIVES ALONE AND HAS A [employer] F[employer] ERECTOR THAT COMES IN Q FRIDAY TO ASSIST WITH HOUSEKEEPING. HE REPORTS HE DID HAVE A VNA THAT WOULD COME AND ASSIST WITH WRAPPING HIS LEGS/FEET, HOWEVER THEY ABRUPTLY STOPPED BECAUSE HE ATTENDED AN APPOINTMENT AT THE LYMPH CLINIC. PT REPORTS HE WOULD LIKE VNA SERVICES AGAIN BUT WOULD NOT LIKE THE SAME AGENCY. PT CONFIRMS HIS PCP IS LOUANN PARIKH. PT REPORTS HE HAS A HCP NAMING HIS COUSIN, SIRENA ZEPEDA, HIS AGENT. IMM DELIVERED REFERRAL MADE TO [facility] CURRENT DC PLAN IS HOME VS HOME WITH VNA FAMILY TO TRANSPORT
--- NOTE | 2021-06-02 11:46 | P.PNIM_ITS ---
Subjective Subjective Date of Service: 06/02/21 Interval History: Seen and examined this morning Follow-up for cellulitis No overnight events. Preliminary blood cultures positive 2/2 gram negative rods Patient reports improvement in leg pain Denies any fevers, chills Review of Systems Review of Systems: Yes all other systems are reviewed and are negative Constitutional Constitutional: Denies chills and Denies fever(s) Cardiovascular Cardiovascular: Denies chest pain Respiratory Respiratory: Denies cough Gastrointestinal Gastrointestinal: Denies abdominal pain Musculoskeletal pain in right leg improving Physical Exam Vital Signs: Vital Signs: Last Vital Signs Temp 97.2 F 06/02/21 08:00 Pulse 79 06/02/21 08:00 Resp 18 06/02/21 08:00 BP 177/69 H 06/02/21 08:00 Pulse Ox 96 06/02/21 08:00 Body Mass Index 39.4 Const: General: comfortable, no acute distress, alert and awake Nutritional Appearance: well nourished and overweight Orientation/consciousness: patient oriented x3 HENMT: Head: Yes normocephalic and Yes atraumatic Ears: hearing grossly normal bilaterally Eyes: Sclerae: sclerae normal Pupils: Equal, round and reactive pupils present Resp: Effort & Inspection: normal respiratory effort and no respiratory distress Cardio: Rate: regular rate Rhythm: regular rhythm GI: Palpation (GI): Soft to palpation, nontender and no guarding Skin: Other: Appears slightly less erythematous than pictures from day of admission on 06/01 Erythema does extend up to posterior thigh Chronic skin changes bilateral lower extremities Neuro: General: patient oriented x3 Cranial nerves: Yes CN's II-XII intact bilaterally, Yes Equal, round and reactive pupils present and Yes Bilaterally intact EOM present Objective Data Active Medications Acetaminophen (Acetaminophen 325 Mg Tablet) 650 mg PO Q6H PRN PRN Reason: Pain, Mild (Pain Scale 1-3) Ferrous Sulfate (Ferrous Sulfate 324 Mg Tablet.) 324 mg PO DAILY [facility] Last Admin: 06/02/21 09:17 Dose: 324 mg Documented by: MCKAYLA Finasteride (Finasteride 5 Mg Tablet) 5 mg PO DAILY [facility] Last Admin: 06/02/21 09:18 Dose: 5 mg Documented by: MCKAYLA Piperacillin Sod/Tazobactam (Sod 3.375 gm/ Sodium Chloride) 50 mls @ 100 mls/hr IV Q6H [facility] Last Infusion: 06/02/21 09:57 Dose: 0 mls/hr Documented by: MCKAYLA Lisinopril (Lisinopril 40 Mg Tablet) 40 mg PO DAILY [facility]; Protocol Last Admin: 06/02/21 09:18 Dose: 40 mg Documented by: MCKAYLA Metoprolol Tartrate (Metoprolol Tartrate 25 Mg Tablet) 25 mg PO BID [facility]; Protocol Last Admin: 06/02/21 09:17 Dose: 25 mg Documented by: MCKAYLA Multivitamins/Minerals (Multivitamin With Minerals Tablet) 1 tab PO DAILY [facility] Last Admin: 06/02/21 09:17 Dose: 1 tab Documented by: MCKAYLA Omeprazole (Omeprazole 40 Mg Capsule.Dr) 40 mg PO DAILY [facility] Last Admin: 06/02/21 09:16 Dose: 40 mg Documented by: MCKAYLA Ondansetron HCl (Ondansetron Hcl 4 Mg/2 Ml Vial) 4 mg IVPUSH Q8H PRN PRN Reason: Nausea and Vomiting Oxycodone HCl (Oxycodone Hcl Immed Release 5 Mg Tablet) 5 mg PO Q6H PRN PRN Reason: Pain, Severe (Pain Scale 7-10) Pharmacy Consult (Consult Rx Perform Med Rec) 1 each MISCELLANE ONCE PRN PRN Reason: Consult order Pravastatin Sodium (Pravastatin Sodium 40 Mg Tablet) 40 mg PO DAILY [facility] Last Admin: 06/02/21 09:17 Dose: 40 mg Documented by: MCKAYLA Senna/Docusate Sodium (Sennosides/Docusate Sodium Tablet) 1 tab PO BID [facility] Last Admin: 06/02/21 09:17 Dose: Not Given Documented by: MCKAYLA Non-Admin Reason: loose stool Sodium Chloride (0.9 % Sodium Chloride Flush 3 Ml Syringe) 3 ml IVFLUSH QSHIFT [facility] Last Admin: 06/02/21 09:18 Dose: 3 ml Documented by: MCKAYLA Tamsulosin HCl (Tamsulosin Hcl 0.4 Mg Capsule) 0.4 mg PO BEDTIME [facility] Last Admin: 06/01/21 20:14 Dose: 0.4 mg Documented by: JAVAN Warfarin Sodium (Warfarin Sodium 7.5 Mg Tablet) 7.5 mg PO DAILY@1800 [facility] Last Admin: 06/01/21 17:24 Dose: 7.5 mg Documented by: ALEXX Labs CBC & Chem 7: 06/01/21 08:36 06/01/21 08:36 Labs: Laboratory Results - last 24 hr 06/01/21 06/01/21 06/02/21 11:34 15:49 05:46 PT 38.0 H INR 3.3 H Lactic Acid Fup @ 2Hr 3.3 H* Lactic Acid Fup @ 4Hr 3.1 H* Magnesium 06/02/21 05:46 PT INR Lactic Acid Fup @ 2Hr Lactic Acid Fup @ 4Hr Magnesium 1.6 Microbiology Microbiology Results: Microbiology 06/01/21 08:43 Blood Culture - Preliminary Blood - Venous Gram negative ernesto 06/01/21 08:43 Blood Culture - Preliminary Blood - Venous Gram negative ernesto Assessment and Plan (1) Cellulitis: Status: Acute (2) Lymphedema: Status: Acute (3) Acidosis, lactic: Status: Acute (4) Persistent atrial fibrillation: Status: Acute (5) Renal cancer: Status: Acute Assessment and Plan: This is a 75 yo M with a PMH of Jose Juan wallace on coumadin, Renal cancel - s/p L nephrectomy, Chronic lymphedema, BPH, HLD who presents to the hospital with progressive RLE pain, swelling, redness with associated chills. His presentation, work up and exam is consistent with RLE cellulitis. He will be admitted for further treatment. Gram-negative ernesto bacteremia 2/2 blood cultures positive Await final sensitivities RLE cellulitis >50% of his RLE Due to baseline lymphedema + chronic venous stasis no evidence of sepsis Initially treated with IV Kefzol, will change to IV Zosyn due to blood culture results The patient does not have severe sepsis at this time. Pain control Elevated lactic acid Not related to sepsis Hypomagnesemia Improved after IV magnesium Jose Juan wallace on coumadin continue metoprolol continue coumadin -- INR is 3.3, hold dose of coumadin today Follow INR daily HTN BP elevated. Will treat pain and monitor BP closely May need med adjustment continue lisinopril BPH continue tamsulosin + finasteride Renal Cell Ca s/p L nephrectomy outpatient f/u with his Urology+Oncology team DNR/DNI DVT pptx -- on coumadin Reports his cousin Tammy as his HCP Attending Dr. Vigil Quality Stroke Does the patient have a stroke diagnosis?: No VTE Prior VTE?: No VTE Risk Level:: Medical - moderate - high VTE Device Contraindication: Treatment Not Indicated VTE Drug Contraindication: N/A - Med Ordered
[2021-06-02 13:08] LABS: Lactic Acid 1.8 mmol/L (0.5-2.0)
[2021-06-02 15:14] VITALS: BP 118/62; PULSE 73; RESP 18; TEMP 36.6; O2SAT 98
[2021-06-02 19:13] VITALS: BP 133/52; PULSE 80; RESP 18; TEMP 37.1; O2SAT 96
[2021-06-02] MEDS: Tamsulosin HCL 0.4 MG CAPSULE PO (21:37)
[2021-06-03] VITALS: BP 111/59; PULSE 67; RESP 20; TEMP 36.1; O2SAT 96
[2021-06-03] MEDS: 0.9 % Sodium Chloride Flush 3 ML SYRINGE IVFLUSH ×4 (00:38→23:22)
[2021-06-03] MEDS: Piperacillin Sodium/Tazobactam 3.375 GM in 0.9 % Sodium Chloride 50 ML IV ×4 (04:46→20:31)
[2021-06-03 06:50] LABS: Hematocrit 35.2 % (42-52); Hemoglobin 11.4 g/dl (14.0-18.0); Mean Corpuscular HGB Conc 32.4 g/dl (31.0-36.0); Mean Corpuscular Hemoglobin 33.3 pg (27.0-33.0); Mean Corpuscular Volume 102.9 fL (80-98); Mean Platelet Volume 10.4 fL (9.4-12.4); Platelet Count 151 X10*3/uL (160-400); Red Blood Count 3.42 X10*6/uL (4.60-5.80); Red Cell Distribution Width 13.9 % (11.0-16.0)
[2021-06-03 07:02] LABS: INTERNATIONAL NORM RATIO 2.8 (0.9-1.1); Prothrombin Time 32.1 SEC (9.9-13.0)
[2021-06-03 07:05] LABS: Anion Gap 13 (12-20); Blood Urea Nitrogen 22 mg/dL (9-16); Calcium 8.1 mg/dL (8.4-10.2); Carbon Dioxide 26 mmol/L (22-29); Chloride 105 mmol/L (96-108); Creatinine Clr Calc Pharmacy 80.2; Estimated Glomerular Filt Rate > 60; Glucose Random 100 mg/dL (60-115); Potassium 3.7 mmol/L (3.3-5.1); Sodium 140 mmol/L (135-145)
[2021-06-03 07:15] VITALS: BP 135/62; PULSE 61; RESP 17; TEMP 36.7; O2SAT 97
[2021-06-03] MEDS: Ferrous Sulfate 324 MG TABLET.DR PO (08:30)
[2021-06-03] MEDS: lisinopriL 40 MG TABLET PO (08:30)
[2021-06-03] MEDS: Sennosides/Docusate Sodium TABLET 1 TAB PO ×2 (08:30→20:32)
[2021-06-03] MEDS: Omeprazole 40 MG CAPSULE.DR PO (08:30)
[2021-06-03] MEDS: Pravastatin Sodium 40 MG TABLET PO (08:30)
[2021-06-03] MEDS: Metoprolol Tartrate 25 MG TABLET PO ×2 (08:31→20:32)
[2021-06-03] MEDS: Finasteride 5 MG TABLET PO (08:31)
--- NOTE | 2021-06-03 10:32 | P.PNIM_ITS ---
Subjective Subjective Date of Service: 06/03/21 Interval History: seen and examined this morning follow up for cellulitis/bacteremia no fever, chills leg pain improving Review of Systems Review of Systems: Yes all other systems are reviewed and are negative Constitutional Constitutional: Denies chills and Denies fever(s) Cardiovascular Cardiovascular: Denies chest pain Respiratory Respiratory: Denies cough Gastrointestinal Gastrointestinal: Denies abdominal pain Physical Exam Vital Signs: Vital Signs: Last Vital Signs Temp 98.0 F 06/03/21 07:15 Pulse 61 06/03/21 07:15 Resp 17 06/03/21 07:15 BP 135/62 06/03/21 07:15 Pulse Ox 97 06/03/21 07:15 Body Mass Index 39.4 Const: General: comfortable, no acute distress, alert and awake Nutritional Appearance: well nourished and overweight Orientation/consciousness: patient oriented x3 HENMT: Head: Yes normocephalic and Yes atraumatic Ears: hearing grossly normal bilaterally Eyes: Sclerae: sclerae normal Pupils: Equal, round and reactive pupils present Resp: Effort & Inspection: normal respiratory effort and no respiratory distress Cardio: Rate: regular rate Rhythm: regular rhythm GI: Palpation (GI): Soft to palpation, nontender and no guarding Skin: Other: Still with leg edema, improving; Appears slightly less erythematous Erythema does extend up to posterior thigh Chronic skin changes bilateral lower extremities Neuro: General: patient oriented x3 Cranial nerves: Yes CN's II-XII intact bilaterally, Yes Equal, round and reactive pupils present and Yes Bilaterally intact EOM present Objective Data Active Medications Acetaminophen (Acetaminophen 325 Mg Tablet) 650 mg PO Q6H PRN PRN Reason: Pain, Mild (Pain Scale 1-3) Ferrous Sulfate (Ferrous Sulfate 324 Mg Tablet.) 324 mg PO DAILY [facility] Last Admin: 06/03/21 08:30 Dose: 324 mg Documented by: MCKAYLA Finasteride (Finasteride 5 Mg Tablet) 5 mg PO DAILY [facility] Last Admin: 06/03/21 08:31 Dose: 5 mg Documented by: MCKAYLA Piperacillin Sod/Tazobactam (Sod 3.375 gm/ Sodium Chloride) 50 mls @ 100 mls/hr IV Q6H [facility] Last Infusion: 06/03/21 09:10 Dose: 0 mls/hr Documented by: MCKAYLA Lisinopril (Lisinopril 40 Mg Tablet) 40 mg PO DAILY [facility]; Protocol Last Admin: 06/03/21 08:30 Dose: 40 mg Documented by: MCKAYLA Metoprolol Tartrate (Metoprolol Tartrate 25 Mg Tablet) 25 mg PO BID [facility]; Protocol Last Admin: 06/03/21 08:31 Dose: 25 mg Documented by: MCKAYLA Multivitamins/Minerals (Multivitamin With Minerals Tablet) 1 tab PO DAILY [facility] Last Admin: 06/03/21 08:30 Dose: 1 tab Documented by: MCKAYLA Omeprazole (Omeprazole 40 Mg Capsule.Dr) 40 mg PO DAILY [facility] Last Admin: 06/03/21 08:30 Dose: 40 mg Documented by: MCKAYLA Ondansetron HCl (Ondansetron Hcl 4 Mg/2 Ml Vial) 4 mg IVPUSH Q8H PRN PRN Reason: Nausea and Vomiting Oxycodone HCl (Oxycodone Hcl Immed Release 5 Mg Tablet) 5 mg PO Q6H PRN PRN Reason: Pain, Severe (Pain Scale 7-10) Pharmacy Consult (Consult Rx Perform Med Rec) 1 each MISCELLANE ONCE PRN PRN Reason: Consult order Pravastatin Sodium (Pravastatin Sodium 40 Mg Tablet) 40 mg PO DAILY [facility] Last Admin: 06/03/21 08:30 Dose: 40 mg Documented by: MCKAYLA Senna/Docusate Sodium (Sennosides/Docusate Sodium Tablet) 1 tab PO BID [facility] Last Admin: 06/03/21 08:30 Dose: 1 tab Documented by: MCKAYLA Sodium Chloride (0.9 % Sodium Chloride Flush 3 Ml Syringe) 3 ml IVFLUSH QSHIFT [facility] Last Admin: 06/03/21 08:31 Dose: 3 ml Documented by: MCKAYLA Tamsulosin HCl (Tamsulosin Hcl 0.4 Mg Capsule) 0.4 mg PO BEDTIME [facility] Last Admin: 06/02/21 21:37 Dose: 0.4 mg Documented by: DONOVAN Warfarin Sodium (Warfarin Sodium 7.5 Mg Tablet) 7.5 mg PO DAILY@1800 [facility] Last Admin: 06/01/21 17:24 Dose: 7.5 mg Documented by: ALEXX Labs CBC & Chem 7: 06/03/21 05:15 06/03/21 05:15 Labs: Laboratory Results - last 24 hr 06/02/21 06/03/21 06/03/21 12:38 05:15 05:15 MCV 102.9 H MCH 33.3 H MCHC 32.4 RDW 13.9 Plt Count 151 L MPV 10.4 Absolute Nucleated RBC 0.000 Nucleated RBC % (auto) 0.0 PT 32.1 H INR 2.8 H Anion Gap Estim Creat Clear Calc Estimated GFR Random Glucose Lactic Acid 1.8 Calcium 06/03/21 05:15 MCV MCH MCHC RDW Plt Count MPV Absolute Nucleated RBC Nucleated RBC % (auto) PT INR Anion Gap 13 Estim Creat Clear Calc 80.2 Estimated GFR > 60 Random Glucose 100 Lactic Acid Calcium 8.1 L D Microbiology Microbiology Results: Microbiology 06/01/21 08:43 Blood Culture - Preliminary Blood - Venous Gram negative ernesto 06/01/21 08:43 Blood Culture - Preliminary Blood - Venous Gram negative ernesto Assessment and Plan (1) Bacteremia: Status: Acute (2) Cellulitis: Status: Acute (3) Lymphedema: Status: Acute (4) Acidosis, lactic: Status: Acute Assessment and Plan: This is a 75 yo M with a PMH of Jose Juan wallace on coumadin, Renal cancel - s/p L nephrectomy, Chronic lymphedema, BPH, HLD who presents to the hospital with progressive RLE pain, swelling, redness with associated chills. His prese ntation, work up and exam is consistent with RLE cellulitis. He will be admitted for further treatment. Gram-negative ernesto bacteremia 2/2 blood cultures positive, growing shewanella algae - has to be sent out for final sensitivities ID consult RLE cellulitis >50% of his RLE Due to baseline lymphedema + chronic venous stasis no evidence of sepsis Initially treated with IV Kefzol, changed to Zosyn 06/02 no severe sepsis Pain control ID consult Thrombocytopenia, mild Follow CBC Elevated lactic acid resolved Hypomagnesemia Improved after IV magnesium A. fib on coumadin continue metoprolol continue coumadin -- INR is 2.8 Follow INR daily HTN BP elevated. Will treat pain and monitor BP closely May need med adjustment continue lisinopril BPH continue tamsulosin + finasteride Renal Cell Ca s/p L nephrectomy outpatient f/u with his Urology+Oncology team DNR/DNI DVT pptx - on coumadin Reports his cousin Tammy as his HCP Attending Dr. Vigil Quality Stroke Does the patient have a stroke diagnosis?: No VTE Prior VTE?: No VTE Risk Level:: Medical - moderate - high VTE Device Contraindication: Treatment Not Indicated VTE Drug Contraindication: N/A - Med Ordered
[2021-06-03 11:42] VITALS: BP 143/67; PULSE 55; RESP 17; TEMP 36.4; O2SAT 99
[2021-06-03 15:03] VITALS: BP 135/65; PULSE 77; RESP 18; TEMP 36.1; O2SAT 99
[2021-06-03] MEDS: Warfarin Sodium 7.5 MG TABLET PO (17:29)
[2021-06-03] MEDS: Tamsulosin HCL 0.4 MG CAPSULE PO (20:31)
[2021-06-03 20:32] VITALS: BP 135/65; PULSE 77
[2021-06-03 23:50] VITALS: BP 128/60; PULSE 57; RESP 17; TEMP 36.7; O2SAT 96
[2021-06-04] MEDS: Piperacillin Sodium/Tazobactam 3.375 GM in 0.9 % Sodium Chloride 50 ML IV ×4 (02:37→23:17)
[2021-06-04 05:53] LABS: Hematocrit 33.7 % (42-52); Hemoglobin 11.3 g/dl (14.0-18.0); Mean Corpuscular HGB Conc 33.5 g/dl (31.0-36.0); Mean Corpuscular Hemoglobin 34.1 pg (27.0-33.0); Mean Corpuscular Volume 101.8 fL (80-98); Platelet Count 153 X10*3/uL (160-400); Red Blood Count 3.31 X10*6/uL (4.60-5.80); Red Cell Distribution Width 13.5 % (11.0-16.0); White Blood Count 8.1 X10*3/uL (4.8-10.8)
[2021-06-04 05:59] LABS: INTERNATIONAL NORM RATIO 2.4 (0.9-1.1); Prothrombin Time 27.7 SEC (9.9-13.0)
[2021-06-04 06:23] LABS: Anion Gap 15 (12-20); Calcium 8.1 mg/dL (8.4-10.2); Carbon Dioxide 25 mmol/L (22-29); Chloride 104 mmol/L (96-108); Creatinine Clr Calc Pharmacy 79.5; Estimated Glomerular Filt Rate > 60; Glucose Random 94 mg/dL (60-115); Potassium 3.6 mmol/L (3.3-5.1); Sodium 140 mmol/L (135-145)
[2021-06-04 06:38] LABS: Blood Urea Nitrogen 20 mg/dL (9-16); Magnesium 1.6 mg/dL (1.6-2.6)
[2021-06-04 07:15] VITALS: BP 147/76; PULSE 73; RESP 16; TEMP 36.8; O2SAT 98
[2021-06-04] MEDS: Metoprolol Tartrate 25 MG TABLET PO ×2 (09:57→21:19)
[2021-06-04] MEDS: Ferrous Sulfate 324 MG TABLET.DR PO (09:58)
[2021-06-04] MEDS: Omeprazole 40 MG CAPSULE.DR PO (09:58)
[2021-06-04] MEDS: Finasteride 5 MG TABLET PO (10:00)
[2021-06-04] MEDS: lisinopriL 40 MG TABLET PO (10:00)
[2021-06-04] MEDS: Pravastatin Sodium 40 MG TABLET PO (10:00)
[2021-06-04] MEDS: 0.9 % Sodium Chloride Flush 3 ML SYRINGE IVFLUSH ×3 (10:02→21:20)
--- NOTE | 2021-06-04 11:13 | PM.IMPN ---
Progress Note: A&P (1) Bacteremia: Status: Acute Assessment and Plan: This is a 75 yo M with a PMH of Jose Juan wallace on coumadin, Renal cancel - s/p L nephrectomy, Chronic lymphedema, BPH, HLD who presents to the hospital with progressive RLE pain, swelling, redness with associated chills. His presentation, work up and exam is consistent with RLE cellulitis. He will be admitted for further treatment. Gram-negative ernesto bacteremia 2/2 blood cultures positive, growing shewanella algae - has to be sent out for final sensitivities ID following RLE cellulitis >50% of his RLE Due to baseline lymphedema + chronic venous stasis no evidence of sepsis Initially treated with IV Kefzol, changed to Zosyn 06/02 no severe sepsis Pain control Thrombocytopenia, mild Follow CBC Elevated lactic acid resolved Hypomagnesemia Improved after IV magnesium Jose Juan wallace on coumadin continue metoprolol continue coumadin -- INR is 2.8 Follow INR daily HTN BP elevated. Will treat pain and monitor BP closely May need med adjustment continue lisinopril BPH continue tamsulosin + finasteride Renal Cell Ca s/p L nephrectomy outpatient f/u with his Urology+Oncology team DNR/DNI DVT pptx - on coumadin Reports his cousin Tammy as his HCP Attending Dr. Whyte Subjective Subjective Date of Service: 06/05/21 Review of Systems Follow up bacteremia, cellulitis no pain today sitting up in chair respiratory denies any shortness of breath coverage production cardiovascular denies chest pain gastrointestinal denies any dysphagia abdominal pain nausea vomiting or diarrhea all other systems reviewed are negative Physical Exam Vital Signs: Vital Signs: Last Vital Signs Temp 98.3 F 06/04/21 07:15 Pulse 73 06/04/21 07:15 Resp 16 06/04/21 07:15 BP 147/76 H 06/04/21 07:15 Pulse Ox 98 06/04/21 07:15 Body Mass Index 39.4 Appearing in no acute distress lung sounds are clear to auscultation heart regular rate rhythm, clear S1, S2 positive bowel sounds, abdomen is soft, nontender neuro patient is alert x3, no focal deficits Objective Data Current Medications Generic Name Dose Route Start Last Admin Trade Name Freq PRN Reason Stop Dose Admin Acetaminophen 650 mg 06/01/21 10:43 Acetaminophen 325 Mg Tablet PO Q6H PRN Pain, Mild (Pain Scale 1-3) Ferrous Sulfate 324 mg 06/01/21 11:00 06/04/21 09:58 Ferrous Sulfate 324 Mg Tablet. PO 324 mg DAILY FARNCOIS Administration Finasteride 5 mg 06/01/21 11:00 06/04/21 10:00 Finasteride 5 Mg Tablet PO 5 mg DAILY FRANCOIS Administration Piperacillin Sod/Tazobactam 50 mls @ 100 mls/hr 06/02/21 09:00 06/04/21 10:53 Sod 3.375 gm/ Sodium Chloride IV Infused Q6H FRANCOIS Infusion Lisinopril 40 mg 06/02/21 09:00 06/04/21 10:00 Lisinopril 40 Mg Tablet PO 40 mg DAILY FRANCOIS Administration Protocol Metoprolol Tartrate 25 mg 06/01/21 21:00 06/04/21 09:57 Metoprolol Tartrate 25 Mg Tablet PO 25 mg BID FRANCOIS Administration Protocol Multivitamins/Minerals 1 tab 06/02/21 09:00 06/04/21 09:57 Multivitamin With Minerals Tablet PO 1 tab DAILY FRANCOIS Administration Omeprazole 40 mg 06/01/21 11:00 06/04/21 09:58 Omeprazole 40 Mg Capsule. PO 40 mg DAILY FRANCOIS Administration Ondansetron HCl 4 mg 06/01/21 10:43 Ondansetron Hcl 4 Mg/2 Ml Vial IVPUSH Q8H PRN Nausea and Vomiting Oxycodone HCl 5 mg 06/01/21 10:43 Oxycodone Hcl Immed Release 5 Mg Tablet PO Q6H PRN Pain, Severe (Pain Scale 7-10) Pharmacy Consult 1 each 06/01/21 07:52 Consult Rx Perform Med Rec MISCELLANE ONCE PRN Consult order Pravastatin Sodium 40 mg 06/01/21 11:00 06/04/21 10:00 Pravastatin Sodium 40 Mg Tablet PO 40 mg DAILY FRANCOIS Administration Senna/Docusate Sodium 1 tab 06/01/21 21:00 06/04/21 09:58 Sennosides/Docusate Sodium Tablet PO Not Given BID FRANCOIS Sodium Chloride 3 ml 06/01/21 16:00 06/04/21 10:02 0.9 % Sodium Chloride Flush 3 Ml Syringe IVFLUSH 3 ml QSHIFT [facility] Administration Tamsulosin HCl 0.4 mg 06/01/21 21:00 06/03/21 20:31 Tamsulosin Hcl 0.4 Mg Capsule PO 0.4 mg BEDTIME FRANCOIS Administration Warfarin Sodium 7.5 mg 06/01/21 18:00 06/03/21 17:29 Warfarin Sodium 7.5 Mg Tablet PO 7.5 mg DAILY@1800 FRANCOIS Administration Labs CBC & Chem 7: 06/05/21 05:32 06/05/21 05:32 Labs: Laboratory Results - last 24 hr 06/04/21 06/04/21 06/04/21 05:38 05:38 05:38 MCV 101.8 H MCH 34.1 H MCHC 33.5 RDW 13.5 Plt Count 153 L MPV 10.0 Absolute Nucleated RBC 0.000 Nucleated RBC % (auto) 0.0 PT 27.7 H INR 2.4 H Anion Gap 15 Estim Creat Clear Calc 79.5 Estimated GFR > 60 Random Glucose 94 Calcium 8.1 L Magnesium 1.6 Microbiology Microbiology Results: Microbiology 06/01/21 08:43 Blood - Venous Blood Culture - Preliminary Gram negative ernesto 06/01/21 08:43 Blood - Venous Blood Culture - Preliminary Gram negative ernesto Quality Stroke Does the patient have a stroke diagnosis?: No VTE Prior VTE?: No VTE Risk Level:: Medical - moderate - high VTE Device Contraindication: Treatment Not Indicated VTE Drug Contraindication: N/A - Med Ordered
[2021-06-04 15:23] VITALS: BP 123/68; PULSE 74; RESP 18; TEMP 36.5; O2SAT 97
--- NOTE | 2021-06-04 16:17 | P.CNID_ITS ---
History of Present Illness Data of Consult Service Date: 06/04/21 Requesting physician: Gillian Yun Primary Care Provider: Sydney Bardales MD HPI Reason for consult: bacteremia He has right leg redness and swelling for three days or so He has had fever Blood cultures show gram negative ernesto?schwanella Review of Systems Review of Systems: Yes all other systems are reviewed and are negative PMFSH Past Medical History Medical History Afib BPH (benign prostatic hyperplasia) Chronic venous stasis dermatitis GERD (gastroesophageal reflux disease) H/O renal cell cancer Hyperlipemia Hypertension Family History Family History Father Colon cancer Surgical History Surgical History History of nephrectomy, left Social History Social History Household Members: None Housing: House Do you presently have visiting nurse or other home services: Yes Alcohol intake: current Alcohol intake frequency: holidays/special occasions only Patient Tobacco Use Status: Never used Tobacco Use of substances other than those prescribed or required for medical reasons: No Currently Displaying Signs/Symptoms of Drug Intoxication Withdrawal: No Have you been hit, kicked, punched, or otherwise hurt by someone within the past year? If so, by whom?: No Do you feel safe in your current relationship?: No Current Relationship Is there a partner from a previous relationship who is making you feel unsafe now?: No Spiritual Healthcare Practices: no Anabaptist Healthcare Practices: no Cultural Healthcare Practices: no Advance Directives: No Do you have thoughts of harming others: None Do you have a plan to hurt others: No Plan Recently lost weight without trying: No Eating poorly because of decreased appetite: No Nutrition Risks: No Nutritional Risk Poor oral hygiene: No Current occupational status: retired Meds Allergies Allergy/AdvReac Type Severity Reaction Status Date / Time aspirin [ASPIRIN] Allergy Unknown GI BLEED Verified 05/23/21 10:44 Active Medications: Current Medications Generic Name Dose Route Start Last Admin Trade Name Freq PRN Reason Stop Dose Admin Acetaminophen 650 mg 06/01/21 10:43 Acetaminophen 325 Mg Tablet PO Q6H PRN Pain, Mild (Pain Scale 1-3) Ferrous Sulfate 324 mg 06/01/21 11:00 06/04/21 09:58 Ferrous Sulfate 324 Mg Tablet. PO 324 mg DAILY FRANCOIS Administration Finasteride 5 mg 06/01/21 11:00 06/04/21 10:00 Finasteride 5 Mg Tablet PO 5 mg DAILY FRANCOIS Administration Piperacillin Sod/Tazobactam 50 mls @ 100 mls/hr 06/02/21 09:00 06/04/21 16:08 Sod 3.375 gm/ Sodium Chloride IV 100 mls/hr Q6H FRANCOIS Administration Lisinopril 40 mg 06/02/21 09:00 06/04/21 10:00 Lisinopril 40 Mg Tablet PO 40 mg DAILY FRANCOIS Administration Protocol Metoprolol Tartrate 25 mg 06/01/21 21:00 06/04/21 09:57 Metoprolol Tartrate 25 Mg Tablet PO 25 mg BID FRANCOIS Administration Protocol Multivitamins/Minerals 1 tab 06/02/21 09:00 06/04/21 09:57 Multivitamin With Minerals Tablet PO 1 tab DAILY FRANCOIS Administration Omeprazole 40 mg 06/01/21 11:00 06/04/21 09:58 Omeprazole 40 Mg Capsule. PO 40 mg DAILY FRANCOIS Administration Ondansetron HCl 4 mg 06/01/21 10:43 Ondansetron Hcl 4 Mg/2 Ml Vial IVPUSH Q8H PRN Nausea and Vomiting Oxycodone HCl 5 mg 06/01/21 10:43 Oxycodone Hcl Immed Release 5 Mg Tablet PO Q6H PRN Pain, Severe (Pain Scale 7-10) Pharmacy Consult 1 each 06/01/21 07:52 Consult Rx Perform Med Rec MISCELLANE ONCE PRN Consult order Pravastatin Sodium 40 mg 06/01/21 11:00 06/04/21 10:00 Pravastatin Sodium 40 Mg Tablet PO 40 mg DAILY FRANCOIS Administration Senna/Docusate Sodium 1 tab 06/01/21 21:00 06/04/21 09:58 Sennosides/Docusate Sodium Tablet PO Not Given BID FRANCOIS Sodium Chloride 3 ml 06/01/21 16:00 06/04/21 16:08 0.9 % Sodium Chloride Flush 3 Ml Syringe IVFLUSH 3 ml QSHIFT FRANCOIS Administration Tamsulosin HCl 0.4 mg 06/01/21 21:00 06/03/21 20:31 Tamsulosin Hcl 0.4 Mg Capsule PO 0.4 mg BEDTIME [facility] Administration Warfarin Sodium 7.5 mg 06/01/21 18:00 06/03/21 17:29 Warfarin Sodium 7.5 Mg Tablet PO 7.5 mg DAILY@1800 [facility] Administration Home Medications Medication Instructions Recorded Confirmed Last Taken Type lisinopril 40 mg tablet 40 mg PO DAILY 07/27/20 06/01/21 05/31/21 History lovastatin 40 mg tablet 40 mg PO DAILY 07/27/20 06/01/21 05/31/21 History metoprolol tartrate 25 mg tablet 25 mg PO BID 07/27/20 06/01/21 05/31/21 History omeprazole 40 mg capsule,delayed 40 mg PO DAILY 07/27/20 06/01/21 05/31/21 History release ferrous sulfate 325 mg (65 mg 325 mg PO DAILY 09/19/20 06/01/21 05/31/21 History iron) tablet (iron) multivitamin-ferrous 1 tab PO DAILY 09/19/20 06/01/21 05/31/21 History fumarate-folic acid 18 mg-400 mcg tablet (Centrum) indapamide 1.25 mg tablet 1.25 mg PO DAILY 01/23/21 06/01/21 05/31/21 History warfarin 5 mg tablet 7.5 mg PO DAILY 06/01/21 06/01/21 05/31/21 History Physical Exam Vital Signs: Vital Signs: Last Vital Signs Temp 97.7 F 06/04/21 15:23 Pulse 74 06/04/21 15:23 Resp 18 06/04/21 15:23 BP 123/68 06/04/21 15:23 Pulse Ox 97 06/04/21 15:23 Body Mass Index 39.4 Const: General: cooperative HENMT: Head: Yes normal to inspection Mouth: Normal oral and palatal mucosa present Eyes: General: appearance normal, both eyes and all related structures Resp: Effort & Inspection: normal respiratory effort Cardio: Rate: regular rate Rhythm: regular rhythm GI: Palpation (GI): Soft to palpation and nontender Skin: Other: clear General skin exam: no rashes or lesions noted Extrem: Other: right leg swelling and redness Results Labs CBC & Chem 7: 06/04/21 05:38 06/04/21 05:38 Labs: Short CBC 06/04/21 Range/Units 05:38 WBC 8.1 (4.8-10.8) X10*3/uL Hgb 11.3 L (14.0-18.0) g/dl Hct 33.7 L (42-52) % Plt Count 153 L (160-400) X10*3/uL BMP 06/04/21 05:38 Sodium 140 Potassium 3.6 Chloride 104 Carbon Dioxide 25 BUN 20 H Creatinine 1.11 Calcium 8.1 L Microbiology Microbiology Results: Microbiology 06/01/21 08:43 Blood - Venous Blood Culture - Preliminary Gram negative ernesto 06/01/21 08:43 Blood - Venous Blood Culture - Preliminary Gram negative ernesto Assessment and Plan (1) Bacteremia: Status: Acute The bacteremia is likely due to cellulitis He has no UTI (2) Cellulitis: Qualifiers: Laterality: right Site of cellulitis: extremity Site of cellulitis of extremity: lower extremity Qualified Code(s): L03.115 - Cellulitis of right lower limb Status: Acute 14 days po Levaquin ,renal dose adjustment if needed Await final cultures and adjust medication as needed as outpatient
[2021-06-04] MEDS: Warfarin Sodium 7.5 MG TABLET PO (19:41)
[2021-06-04 21:19] VITALS: BP 124/66; PULSE 83
[2021-06-04] MEDS: Tamsulosin HCL 0.4 MG CAPSULE PO (21:20)
[2021-06-04 23:23] VITALS: BP 126/69; PULSE 65; RESP 18; TEMP 36.3; O2SAT 97
[2021-06-05] MEDS: Piperacillin Sodium/Tazobactam 3.375 GM in 0.9 % Sodium Chloride 50 ML IV (05:23)
[2021-06-05 06:04] LABS: Hematocrit 36.6 % (42-52); Hemoglobin 12.1 g/dl (14.0-18.0); Mean Corpuscular HGB Conc 33.1 g/dl (31.0-36.0); Mean Corpuscular Hemoglobin 33.6 pg (27.0-33.0); Mean Corpuscular Volume 101.7 fL (80-98); Mean Platelet Volume 10.5 fL (9.4-12.4); Platelet Count 158 X10*3/uL (160-400); Red Cell Distribution Width 13.4 % (11.0-16.0)
[2021-06-05 06:10] LABS: INTERNATIONAL NORM RATIO 2.7 (0.9-1.1); Prothrombin Time 30.9 SEC (9.9-13.0)
[2021-06-05 06:26] LABS: Anion Gap 12 (12-20); Blood Urea Nitrogen 20 mg/dL (9-16); Carbon Dioxide 23 mmol/L (22-29); Chloride 107 mmol/L (96-108); Creatinine Clr Calc Pharmacy 76.8; Estimated Glomerular Filt Rate > 60; Glucose Random 98 mg/dL (60-115); Sodium 138 mmol/L (135-145)
[2021-06-05 07:35] VITALS: BP 129/68; PULSE 73; RESP 18; TEMP 36.3; O2SAT 98
[2021-06-05 08:43] VITALS: BP 129/68; PULSE 73; O2SAT 98
[2021-06-05] MEDS: Omeprazole 40 MG CAPSULE.DR PO (09:14)
[2021-06-05] MEDS: Ferrous Sulfate 324 MG TABLET.DR PO (09:15)
[2021-06-05] MEDS: Finasteride 5 MG TABLET PO (09:16)
[2021-06-05] MEDS: Metoprolol Tartrate 25 MG TABLET PO (09:16)
[2021-06-05] MEDS: Pravastatin Sodium 40 MG TABLET PO (09:16)
[2021-06-05] MEDS: lisinopriL 40 MG TABLET PO (09:16)
[2021-06-05] MEDS: 0.9 % Sodium Chloride Flush 3 ML SYRINGE IVFLUSH (09:17)
--- NOTE | 2021-06-05 10:03 | MHC.CM.PN ---
Addendum entered by Poppy Kramer 06/05/21 10:19: PATIENT IS ACTIVE WITH [facility] AND IS HOPING FOR AN INCREASE IN SERVICES. HE IS ALSO INTERESTED IN ADDING [id number] SERVICES. AGENCY MADE AWARE. [facility] ORDNANCE ARTIFICER HELPER IS DARRION Billings Original Note: PATIENT IS DISCHARGED HOME TODAY. HE IS UNABLE TO SECURE [facility] SERVICES, HE IS NOT HOMEBOUND AND RN SKILLS DO NOT INCLUDE LYMPHEDEMA CARE. [facility] SERVICES REFERRAL PLACED FOR POTENTIAL SERVICES IN THE HOME. PATIENT AWARE AND IN AGREEMENT. IMM 06/04 IN CHART
--- NOTE | 2021-06-05 11:04 | PM.DS ---
DS: Providers Provider Date of Service: 06/05/21 Date of admission: 06/01/21 10:43 Primary care physician: Sydney Bardales MD Consults: 06/03/21 09:02 Consult to Infectious Diseases Routine Consulting Provider: Sera Palomares Reason for consultation: shewanella algae bacteremia; cellulitis Has provider been notified: No Attending physician on discharge: Riaz Whyte Discharging clinician: Gillian Yun DS: Diagnosis Discharge Diagnosis (1) Bacteremia: Status: Acute (2) Cellulitis: Status: Acute DS: Summary Hospital Course Hospital Course: HP as per admitting provider This is a 75 yo M with a PMH of A. fib on coumadin, lymphedema, Renal cancer - s/p L nephrectomy, HLD who presents to the hospital with complaints of RLE pain, swelling and redness + weeping. Patient reports that he had previously followed up at the wound care clinic and was discharged from there several weeks back. He reports that since then he has been doing fairly well but over the last several days he noticed some pain the RLE from the knee below. It was not too severe, so he did not make much of it. He reports yesterday he started having some chills and over night his pain became so severe that it woke him up from sleep and so he decided to come to the hospital. Upon arrival to the ED he had stable vitals. His RLE was erythematous, tender with edema. His cbc/bmp was within normal limits. He was given broad spec. iv antibiotics -- vancomcyin+zosyn, had cultures collected and admission was requested for further Rx of his cellulitis. Patient endorses that he has been vaccinated against COVID with J&J vaccine . Gram-negative ernesto bacteremia. 2/2 blood cultures positive, growing shewanella algae - has to be sent out for final sensitivities and may take up to a week. Discussed with ID will send home with 14 days of Levaquin and he will follow up with ID as an outpatient to follow up with cultures. RLE cellulitis. >50% of his RLE. Due to baseline lymphedema + chronic venous stasis. no evidence of sepsis. Initially treated with IV Kefzol, changed to Zosyn 06/02. no severe sepsis. Will set home with Levaquin for 14 days and follow up at the lymphedema clinic. May use lac hydrin for dry flaky skin on legs Time Spent with Patient Time attestation: Total time spent providing and/or coordinating discharge services: Discharge coordination time: Greater than 30 minutes Quality: Stroke Does the patient have a stroke diagnosis?: No Physical Exam Vital Signs: Vital Signs: Last Vital Signs Temp 97.3 F 06/05/21 07:35 Pulse 73 06/05/21 08:43 Resp 18 06/05/21 07:35 BP 129/68 06/05/21 08:43 Pulse Ox 98 06/05/21 08:43 Body Mass Index 39.4 Appearing in no acute distress head is normocephalic atraumatic eyes pupils are PERRLA sclera is anicteric mouth throat mucous membranes are intact and moist neck is supple no lymphadenopathy, no JVD noted lung sounds are clear to auscultation heart regular rate rhythm, clear S1, S2 positive bowel sounds, abdomen is soft, nontender neuro patient is alert x3, no focal deficits Chronic lymphedema, with chronic skin changes, dry flaky skin with discoloration DS: Data Data Completed and Pending Labs on day of discharge: Laboratory Results - last 24 hr 06/05/21 06/05/21 06/05/21 05:32 05:32 05:32 WBC 7.0 RBC 3.60 L Hgb 12.1 L Hct 36.6 L MCV 101.7 H MCH 33.6 H MCHC 33.1 RDW 13.4 Plt Count 158 L MPV 10.5 Absolute Nucleated RBC 0.000 Nucleated RBC % (auto) 0.0 PT 30.9 H INR 2.7 H Sodium 138 Potassium 4.0 Chloride 107 Carbon Dioxide 23 Anion Gap 12 BUN 20 H Creatinine 1.15 Estim Creat Clear Calc 76.8 Estimated GFR > 60 Random Glucose 98 Calcium 8.0 L Preliminary micro results at discharge 06/01/21 08:43 Blood Culture - Preliminary Blood - Venous Gram negative ernesto 06/01/21 08:43 Blood Culture - Preliminary Blood - Venous Gram negative ernesto Discharge Plan Discharge Anticipated Discharge Date/Time: 06/05/21 11:03 Patient Disposition: Home, Self-Care Discharge Diagnosis: Bacteremia Cellulitis Referrals: [facility] [Other] - 1 Week ([facility] HAS BEEN NOTIFIED OF YOUR DISCHARGE TO HOME. AN INCREASE IN SERVICES REQUEST HAS BEEN MADE ON YOUR BEHALF PER OUR DISCUSSION. PLEASE FOLLOW UP WITH YOUR SPEECH AND LANGUAGE ASSISTANT IF YOU DO NOT RECEIVE A CALL FROM THIS AGENCY.) Sera Palomares MD [Physician] - 1 Week (blood culture results ) Sydney Bardales MD [Primary Care Provider] - 1 Week Discharge Medications: New levofloxacin 500 mg tablet 500 mg PO DAILY Qty: 14 RF: 0 Lac-Hydrin Five 5 % lotion 1 appl topical BID Qty: 226 RF: 0 Continued finasteride 5 mg tablet 5 mg PO DAILY 90 Days Qty: 90 RF: 3 tamsulosin 0.4 mg capsule 0.4 mg PO BEDTIME Qty: 90 RF: 0 ferrous sulfate [iron] 325 mg (65 mg iron) Tablet 325 mg PO DAILY RF: 0 Centrum 18-400 mg-mcg Tablet 1 tab PO DAILY RF: 0 sennosides-docusate sodium [Senna-S] 8.6-50 mg Tablet 1 tab-cap PO BID Qty: 60 RF: 5 clotrimazole-betameth dip-zinc 1-0.05-20 % combo pack See Rx Instructions .ROUTE .COMPLEX Qty: 135 RF: 0 (DME) T.E.D. Anti-Embolism Stocking Misc See Rx Instructions .Route Qty: 12 RF: 0 warfarin 5 mg tablet 7.5 mg PO DAILY RF: 0 metoprolol tartrate 25 mg tablet 25 mg PO BID RF: 0 lovastatin 40 mg tablet 40 mg PO DAILY RF: 0 omeprazole 40 mg capsule,delayed release(DR/EC) 40 mg PO DAILY RF: 0 lisinopril 40 mg tablet 40 mg PO DAILY RF: 0 indapamide 1.25 mg tablet 1.25 mg PO DAILY RF: 0 Discharge Orders: Discharge Order (Routine); Ordered 06/05/21 Ordered By: Gillian Yun Diet: advance to usual diet Activity on Discharge: As tolerated Stand Alone Forms: Patient Portal Discharge page Care Plan Goals: resolution of bacteremia Health Concerns: Bacteremia Cellulitis Plan of Treatment: Take the antibiotic Levaquin for 14 days Follow-up with the Infectious Disease doctor Dr. Palomares for blood culture results Follow-up with the lymphedema clinic Assessment: see discharge summary
== END 2021-06-05 14:45 | disposition home or self-care (01) | DRG 603 ==
LOC: HO.ED 08:35 → HO.EDOVER 11:20 → HO.S3 14:28
PROVIDERS: Physician Assistant Medical; Admitting Provider Family Medicine; Emergency Provider Emergency Medicine; PCP Internal Medicine; Visit Provider Nurse Practitioner Acute Care
DX: L03.115 Cellulitis of right lower limb (principal); E87.2 Acidosis; R78.81 Bacteremia; I48.91 Unspecified atrial fibrillation; E83.42 Hypomagnesemia; N40.0 Benign prostatic hyperplasia without lower urinary tract symptoms; E78.5 Hyperlipidemia, unspecified; I87.8 Other specified disorders of veins; Z20.822 Contact with and (suspected) exposure to COVID-19; Z90.5 Acquired absence of kidney; Z79.01 Long term (current) use of anticoagulants; Z79.899 Other long term (current) drug therapy; Z66 Do not resuscitate
CPT/HCPCS: 36415; 80048; 80076; 83605; 83735; 85025; 85027; 85610; 85730; 87040; 87077; 87205; 87635; 96365; 96366; 96367; 97162; 99285; J0690; J2543; J3370; J3475

== ENCOUNTER → 2021-06-15 14:31 | Outpatient (BNVA) | payer MEDICARE, SELFPAY | PROVIDERS: PCP Internal Medicine; Visit Provider Internal Medicine | DX: R78.81 Bacteremia (principal); L03.115 Cellulitis of right lower limb | CPT/HCPCS: 85610; 99211; 99212 ==

== ENCOUNTER → 2021-06-25 14:35 | Outpatient (BNVA) | payer MEDICARE, SELFPAY | PROVIDERS: PCP Internal Medicine; Visit Provider Internal Medicine | DX: I48.19 Other persistent atrial fibrillation (principal); Z51.81 Encounter for therapeutic drug level monitoring; Z79.01 Long term (current) use of anticoagulants | CPT/HCPCS: 85610; 99211 ==

== ENCOUNTER → 2021-07-03 14:32 | Outpatient (BNVA) | payer MEDICARE, SELFPAY | PROVIDERS: PCP Internal Medicine; Visit Provider Internal Medicine | DX: I48.19 Other persistent atrial fibrillation (principal); Z51.81 Encounter for therapeutic drug level monitoring; Z79.01 Long term (current) use of anticoagulants | CPT/HCPCS: 85610; 99211 ==

== ENCOUNTER → 2021-07-13 14:36 | Outpatient (BNVA) | payer MEDICARE, SELFPAY | PROVIDERS: PCP Internal Medicine; Visit Provider Internal Medicine | DX: I48.19 Other persistent atrial fibrillation (principal); Z51.81 Encounter for therapeutic drug level monitoring; Z79.01 Long term (current) use of anticoagulants | CPT/HCPCS: 85610; 99211 ==

== ENCOUNTER → 2021-07-26 14:16 | Outpatient (BNVA) | payer MEDICARE, SELFPAY | PROVIDERS: PCP Internal Medicine; Visit Provider Internal Medicine | DX: I48.19 Other persistent atrial fibrillation (principal); Z51.81 Encounter for therapeutic drug level monitoring; Z79.01 Long term (current) use of anticoagulants | CPT/HCPCS: 85610; 99211 ==

== ENCOUNTER → 2021-08-20 10:55 | Outpatient (BNVA) | payer MEDICARE, SELFPAY | PROVIDERS: PCP Internal Medicine; Visit Provider Internal Medicine | DX: I48.19 Other persistent atrial fibrillation (principal); Z51.81 Encounter for therapeutic drug level monitoring; Z79.01 Long term (current) use of anticoagulants | CPT/HCPCS: 85610; 99211 ==

== ENCOUNTER → 2021-08-28 12:37 | Outpatient (BNVA) | payer MEDICARE, SELFPAY | PROVIDERS: PCP Internal Medicine; Visit Provider Urology | DX: Z13.89 Encounter for screening for other disorder (principal) | CPT/HCPCS: Q3014 ==

== ENCOUNTER → 2021-09-11 11:00 | Outpatient (BNVA) | payer MEDICARE, SELFPAY | PROVIDERS: PCP Internal Medicine; Visit Provider Internal Medicine | DX: I48.19 Other persistent atrial fibrillation (principal); Z51.81 Encounter for therapeutic drug level monitoring; Z79.01 Long term (current) use of anticoagulants | CPT/HCPCS: 85610; 99211 ==

== ENCOUNTER → 2021-10-04 11:10 | Outpatient (BNVA) | payer MEDICARE, SELFPAY | PROVIDERS: PCP Internal Medicine; Visit Provider Internal Medicine | DX: I48.19 Other persistent atrial fibrillation (principal); Z51.81 Encounter for therapeutic drug level monitoring; Z79.01 Long term (current) use of anticoagulants | CPT/HCPCS: 85610; 99211 ==

== ENCOUNTER → 2021-10-25 10:34 | Outpatient (BNVA) | payer MEDICARE, SELFPAY | PROVIDERS: PCP Internal Medicine; Visit Provider Internal Medicine | DX: I48.19 Other persistent atrial fibrillation (principal); Z51.81 Encounter for therapeutic drug level monitoring; Z79.01 Long term (current) use of anticoagulants | CPT/HCPCS: 85610; 99211 ==

== ENCOUNTER → 2021-11-22 11:36 | Outpatient (BNVA) | payer MEDICARE, SELFPAY | PROVIDERS: PCP Internal Medicine; Visit Provider Internal Medicine | DX: I48.19 Other persistent atrial fibrillation (principal); Z51.81 Encounter for therapeutic drug level monitoring; Z79.01 Long term (current) use of anticoagulants | CPT/HCPCS: 85610; 99211 ==

== ENCOUNTER → 2021-12-13 11:42 | Outpatient (BNVA) | payer MEDICARE, SELFPAY | PROVIDERS: PCP Internal Medicine; Visit Provider Internal Medicine | DX: I48.19 Other persistent atrial fibrillation (principal); Z51.81 Encounter for therapeutic drug level monitoring; Z79.01 Long term (current) use of anticoagulants | CPT/HCPCS: 85610; 99211 ==

== ENCOUNTER → 2022-01-03 11:29 | Outpatient (BNVA) | payer MEDICARE, SELFPAY | PROVIDERS: PCP Internal Medicine; Visit Provider Internal Medicine | DX: I48.19 Other persistent atrial fibrillation (principal); Z79.01 Long term (current) use of anticoagulants; Z51.81 Encounter for therapeutic drug level monitoring | CPT/HCPCS: 85610; 99211 ==

== ENCOUNTER → 2022-01-17 11:28 | Outpatient (BNVA) | payer MEDICARE, SELFPAY | PROVIDERS: PCP Internal Medicine; Visit Provider Internal Medicine | DX: I48.19 Other persistent atrial fibrillation (principal); Z79.01 Long term (current) use of anticoagulants; Z51.81 Encounter for therapeutic drug level monitoring | CPT/HCPCS: 85610; 99211 ==

== ENCOUNTER 2022-01-31 11:23 | Outpatient (REF) | payer MEDICARE, SELFPAY ==
[2022-01-31 12:58] LABS: Hematocrit 39.2 % (42.0-52.0); Hemoglobin 12.9 g/dl (14.0-18.0); Mean Corpuscular HGB Conc 32.9 g/dl (31.0-36.0); Mean Corpuscular Hemoglobin 34.6 pg (27.0-33.0); Mean Corpuscular Volume 105.1 fL (80.0-98.0); Mean Platelet Volume 10.2 fL (9.4-12.4); Platelet Count 150 X10*3/uL (160-400); Red Blood Count 3.73 X10*6/uL (4.60-5.80); White Blood Count 4.6 X10*3/uL (4.8-10.8)
[2022-01-31 13:30] LABS: Alanine Aminotransferase 15 U/L (0-40); Alkaline Phosphatase 146 U/L (39-117); Anion Gap 14 (12-20); Aspartate Amino Transferase 26 U/L (5-37); Bilirubin Direct 0.6 mg/dL (0.0-0.5); Bilirubin Total 1.1 mg/dL (0.0-1.0); Blood Urea Nitrogen 16 mg/dL (9-16); Calcium 9.1 mg/dL (8.4-10.2); Carbon Dioxide 25 mmol/L (22-29); Chloride 105 mmol/L (96-108); Estimated Glomerular Filt Rate > 60; Glucose Random 96 mg/dL (60-115); Potassium 4.4 mmol/L (3.3-5.1); Sodium 140 mmol/L (135-145); Total Protein 6.9 g/dL (6.5-8.0)
[2022-01-31 13:51] LABS: Prostate Specific Antigen 0.29 ng/mL (<0.05-4.0)
== END 2022-01-31 11:24 | disposition home or self-care (01) ==
LOC: HO.LAB 11:23
PROVIDERS: PCP Internal Medicine; Visit Provider Urology
DX: Z12.5 Encounter for screening for malignant neoplasm of prostate (principal); I48.19 Other persistent atrial fibrillation; Z51.81 Encounter for therapeutic drug level monitoring; Z79.01 Long term (current) use of anticoagulants; C64.9 Malignant neoplasm of unspecified kidney, except renal pelvis; N13.8 Other obstructive and reflux uropathy; N40.1 Benign prostatic hyperplasia with lower urinary tract symptoms
CPT/HCPCS: 36415; 80048; 80076; 84153; 85027; 85610; 99211

== ENCOUNTER 2022-02-22 07:59 | Outpatient (REF) | payer MEDICARE, SELFPAY ==
--- NOTE | ~2022-02-22 | CT_ITS ---
EXAMINATION: CT ABDOMEN AND PELVIS WITHOUT AND WITH CONTRAST CLINICAL INFORMATION: Malignant neoplasm of kidney. COMPARISON: CT abdomen without and with contrast 01/23/2021. TECHNIQUE: Multidetector volumetric imaging was performed of the abdomen and pelvis before and after the IV administration of 60 mL of Omnipaque 300 intravenous contrast. Sagittal and coronal reformatted images were obtained on the technologist's workstation. This CT examination was performed using dose optimization techniques as appropriate, variously including the following: *Automated exposure control *Adjustment of mA and/or kV according to patient size (this includes techniques or standardized protocols for targeted exams where dose is matched to indication/reason for exam; i.e. extremities or head) *Use of iterative reconstruction technique DLP: 1472 mGy-cm FINDINGS: LUNG BASES: The visualized lung bases are unremarkable. LIVER, GALLBLADDER, AND BILIARY TREE: The liver is normal in size, shape, and attenuation. No focal hepatic lesion or biliary ductal dilatation is present. The gallbladder is unremarkable with no evidence of radiopaque gallstones, gallbladder wall thickening, or obvious pericholecystic inflammatory changes. PANCREAS: There is mild atrophic pancreas with fatty infiltration. No focal lesion seen. SPLEEN: Unremarkable. ADRENAL GLANDS: Unremarkable. KIDNEYS AND URETERS: There is left nephrectomy change. The right kidney is normal size, shape and position. No enhancing or nonenhancing renal mass seen. No radiopaque calculi or hydronephrosis. There is no perinephric stranding. Right kidney measures 12.3 cm in length. BLADDER: Bladder is not in the [id number]-[id number]. GASTROINTESTINAL TRACT: Scattered stool and gas seen throughout the colon without any distention. The small bowel loops and the stomach appear unremarkable. ABDOMINAL WALL: A small umbilical hernia containing fat is noted. LYMPH NODES: No abnormal lymph nodes seen. VASCULAR: Unremarkable. PELVIC VISCERA: Pelvis was not imaged. OSSEOUS STRUCTURES: Mild degenerative disc changes with vacuum disc phenomena and spondylosis throughout lumbar spine. No visible acute fracture or dislocation seen. CT/CT abdomen pelvis wo/w con IMPRESSION: Status post left nephrectomy. The right kidney is unremarkable. No abnormal size retroperitoneal lymph nodes or mass seen. No change in small umbilical hernia containing fat. Fleischner guidelines were followed.
[2022-02-22] MEDS: iohexoL 300 MG/ML 100 ML INFUS..BTL 85 ML IV (08:57)
== END 2022-02-22 08:00 | disposition home or self-care (01) ==
LOC: HO.CT 07:59
PROVIDERS: PCP Internal Medicine; Visit Provider Urology
DX: C64.9 Malignant neoplasm of unspecified kidney, except renal pelvis (principal)
CPT/HCPCS: 74178; Q9967

== ENCOUNTER → 2022-02-26 13:18 | Outpatient (BNVA) | payer MEDICARE, SELFPAY | PROVIDERS: PCP Internal Medicine; Visit Provider Urology | DX: N40.1 Benign prostatic hyperplasia with lower urinary tract symptoms (principal); N13.8 Other obstructive and reflux uropathy; C64.9 Malignant neoplasm of unspecified kidney, except renal pelvis | CPT/HCPCS: 99212 ==

== ENCOUNTER → 2022-02-27 11:30 | Outpatient (BNVA) | payer MEDICARE, SELFPAY | PROVIDERS: PCP Internal Medicine; Visit Provider Internal Medicine | DX: I48.19 Other persistent atrial fibrillation (principal); Z79.01 Long term (current) use of anticoagulants; Z51.81 Encounter for therapeutic drug level monitoring | CPT/HCPCS: 85610; 99211 ==

== ENCOUNTER → 2022-03-28 11:27 | Outpatient (BNVA) | payer MEDICARE, SELFPAY | PROVIDERS: PCP Internal Medicine; Visit Provider Internal Medicine | DX: I48.19 Other persistent atrial fibrillation (principal); Z79.01 Long term (current) use of anticoagulants; Z51.81 Encounter for therapeutic drug level monitoring | CPT/HCPCS: 85610; 99211 ==

== ENCOUNTER → 2022-04-25 11:36 | Outpatient (BNVA) | payer MEDICARE, SELFPAY | PROVIDERS: PCP Internal Medicine; Visit Provider Internal Medicine | DX: I48.19 Other persistent atrial fibrillation (principal); Z79.01 Long term (current) use of anticoagulants; Z51.81 Encounter for therapeutic drug level monitoring | CPT/HCPCS: 85610; 99211 ==

== ENCOUNTER → 2022-05-23 11:40 | Outpatient (BNVA) | payer MEDICARE, SELFPAY | PROVIDERS: PCP Internal Medicine; Visit Provider Internal Medicine | DX: I48.19 Other persistent atrial fibrillation (principal); Z51.81 Encounter for therapeutic drug level monitoring; Z79.01 Long term (current) use of anticoagulants | CPT/HCPCS: 85610; 99211 ==

== ENCOUNTER → 2022-06-20 11:28 | Outpatient (BNVA) | payer MEDICARE, SELFPAY | PROVIDERS: PCP Internal Medicine; Visit Provider Internal Medicine | DX: I48.19 Other persistent atrial fibrillation (principal); Z79.01 Long term (current) use of anticoagulants; Z51.81 Encounter for therapeutic drug level monitoring | CPT/HCPCS: 85610; 99211 ==

== ENCOUNTER → 2022-07-18 11:27 | Outpatient (BNVA) | payer MEDICARE, SELFPAY | PROVIDERS: PCP Internal Medicine; Visit Provider Internal Medicine | DX: I48.19 Other persistent atrial fibrillation (principal); Z79.01 Long term (current) use of anticoagulants; Z51.81 Encounter for therapeutic drug level monitoring | CPT/HCPCS: 85610; 99211 ==

== ENCOUNTER 2022-08-20 12:38 | Outpatient (REF) | payer MEDICARE, SELFPAY ==
--- NOTE | ~2022-08-20 | XR_ITS ---
EXAMINATION: XR CHEST CLINICAL INFORMATION: Malignant neoplasm of unspecified kidney COMPARISON: 08/03/2020 TECHNIQUE: Frontal view of the chest was obtained. FINDINGS: Enlarged cardiac mediastinal silhouette is stable. Clear lungs without consolidation, pleural effusion or pneumothorax. Hiatal hernia XR/XR chest 1V IMPRESSION: No acute process.
== END 2022-08-20 12:39 | disposition home or self-care (01) ==
LOC: HO.XRAY 12:38
PROVIDERS: Visit Provider Urology
DX: C64.9 Malignant neoplasm of unspecified kidney, except renal pelvis (principal)
CPT/HCPCS: 71045

== ENCOUNTER → 2022-08-22 11:46 | Outpatient (BNVA) | payer MEDICARE, SELFPAY | PROVIDERS: PCP Internal Medicine; Visit Provider Internal Medicine | DX: I48.19 Other persistent atrial fibrillation (principal); Z79.01 Long term (current) use of anticoagulants; Z51.81 Encounter for therapeutic drug level monitoring | CPT/HCPCS: 85610; 99211 ==

== ENCOUNTER → 2022-08-28 13:45 | Outpatient (BNVA) | payer MEDICARE, SELFPAY | PROVIDERS: Visit Provider Urology | DX: N40.1 Benign prostatic hyperplasia with lower urinary tract symptoms (principal); N13.8 Other obstructive and reflux uropathy; Z85.528 Personal history of other malignant neoplasm of kidney; Z90.5 Acquired absence of kidney | CPT/HCPCS: 99212; Q3014 ==

== ENCOUNTER → 2022-09-26 11:33 | Outpatient (BNVA) | payer MEDICARE, SELFPAY | PROVIDERS: PCP Internal Medicine; Visit Provider Internal Medicine | DX: I48.19 Other persistent atrial fibrillation (principal); Z79.01 Long term (current) use of anticoagulants; Z51.81 Encounter for therapeutic drug level monitoring | CPT/HCPCS: 85610; 99211 ==

== ENCOUNTER → 2022-10-24 11:37 | Outpatient (BNVA) | payer MEDICARE, SELFPAY | PROVIDERS: PCP Internal Medicine; Visit Provider Internal Medicine | DX: I48.19 Other persistent atrial fibrillation (principal); Z79.01 Long term (current) use of anticoagulants; Z51.81 Encounter for therapeutic drug level monitoring | CPT/HCPCS: 85610; 99211 ==

== ENCOUNTER → 2022-11-21 11:35 | Outpatient (BNVA) | payer MEDICARE, SELFPAY | PROVIDERS: PCP Internal Medicine; Visit Provider Internal Medicine | DX: I48.19 Other persistent atrial fibrillation (principal); Z79.01 Long term (current) use of anticoagulants; Z51.81 Encounter for therapeutic drug level monitoring | CPT/HCPCS: 85610; 99211 ==

== ENCOUNTER → 2022-12-19 11:37 | Outpatient (BNVA) | payer MEDICARE, SELFPAY | PROVIDERS: PCP Internal Medicine; Visit Provider Internal Medicine | DX: I48.19 Other persistent atrial fibrillation (principal); Z79.01 Long term (current) use of anticoagulants; Z51.81 Encounter for therapeutic drug level monitoring | CPT/HCPCS: 85610; 99211 ==

== ENCOUNTER → 2023-01-16 11:38 | Outpatient (BNVA) | payer MEDICARE, SELFPAY | PROVIDERS: PCP Internal Medicine; Visit Provider Internal Medicine | DX: I48.19 Other persistent atrial fibrillation (principal); Z79.01 Long term (current) use of anticoagulants; Z51.81 Encounter for therapeutic drug level monitoring | CPT/HCPCS: 85610; 99211 ==

== ENCOUNTER → 2023-02-13 11:31 | Outpatient (BNVA) | payer MEDICARE, SELFPAY | PROVIDERS: PCP Internal Medicine; Visit Provider Internal Medicine | DX: I48.19 Other persistent atrial fibrillation (principal); Z79.01 Long term (current) use of anticoagulants; Z51.81 Encounter for therapeutic drug level monitoring | CPT/HCPCS: 85610; 99211 ==

== ENCOUNTER → 2023-02-28 11:28 | Outpatient (BNVA) | payer MEDICARE, SELFPAY | PROVIDERS: PCP Internal Medicine; Visit Provider Internal Medicine | DX: I48.19 Other persistent atrial fibrillation (principal); Z79.01 Long term (current) use of anticoagulants; Z51.81 Encounter for therapeutic drug level monitoring | CPT/HCPCS: 85610; 99211 ==

== ENCOUNTER → 2023-03-13 10:55 | Outpatient (BNVA) | payer MEDICARE, SELFPAY | PROVIDERS: PCP Internal Medicine; Visit Provider Internal Medicine | DX: I48.19 Other persistent atrial fibrillation (principal); Z79.01 Long term (current) use of anticoagulants; Z51.81 Encounter for therapeutic drug level monitoring | CPT/HCPCS: 85610; 99211 ==

== ENCOUNTER 2023-03-31 10:24 | Outpatient (AMB) | payer MEDICARE, SELFPAY ==
--- NOTE | 2023-03-31 11:02 | MHC.OFFVISCO ---
Intake Intake Visit Reasons: Anticoagulation Allergies aspirin [ASPIRIN] Adverse Reaction (Severe, Verified 03/31/23 10:47) GI BLEED Medication List - Last Reconciled 03/31/23 by Mildred Garcia, RN ammonium lactate 5% (Lac-Hydrin Five) 1 appl topical BID amoxicillin 875 mg PO BID clotrimazole-betameth dip-zinc 1-0.05-20 % apply CLOTRIMAZOLE/BETAMETHASONE CREAM twice daily: use ZINC OXIDE PASTE as needed/as directed warren.stocking,knee,reg,smal (T.E.D. Anti-Embolism Stocking) As directed ferrous sulfate (iron) 325 mg PO DAILY finasteride 5 mg PO DAILY 90 days indapamide 2.5 mg PO DAILY lisinopril 40 mg PO DAILY lovastatin 40 mg PO DAILY metoprolol tartrate 25 mg PO BID tvopcneinfmh-qwsb-dnloy acid 18-400 mg-mcg (Centrum) 1 tab PO DAILY omeprazole 40 mg PO DAILY warfarin 7.5 mg See Protocol PO DAILY Nursing Note INR: 2.3 in therapeutic range Medications and supplements reviewed pt finishing Augmentin this Friday for open wound on his foot- not going to wound clinic at this time, being treated by PCP Denies any signs and symptoms of bleeding or bruising or clotting. Bleeding, bruising, clotting discussed Nutritional guidance given: eat greens at the end of the week as the previous antbx may have a delayed response in raising your INR Dose: resume usual dose 7.5mg daily F/U INR: 4 wks call with any changes in medications or another antbx starts Patient verbalizes understanding of instructions given Anti-Coag Initial Assessment Social Hx Patient Tobacco Use Status: Never used Tobacco alcohol intake: current Alcohol intake frequency: holidays/special occasions only Coding Level of Care Code Est Patient Level 1 Diagnoses Current use of anticoagulant therapy Z79.01 Assessment & Plan Assessment & Plan (1) Current use of anticoagulant therapy: Code(s): Z79.01 - prison (current) use of anticoagulants Category: Medical Medications: New sennosides (senna) 8.6 mg PO DAILY
== END 2023-03-31 11:07 | disposition home or self-care (01) ==
LOC: HO.ACS 10:25
PROVIDERS: PCP Internal Medicine; Visit Provider Internal Medicine
DX: Z79.01 Long term (current) use of anticoagulants (principal)

== ENCOUNTER → 2023-03-31 10:24 | Outpatient (BNVA) | payer MEDICARE, SELFPAY | PROVIDERS: PCP Internal Medicine; Visit Provider Internal Medicine | DX: I48.19 Other persistent atrial fibrillation (principal); Z79.01 Long term (current) use of anticoagulants; Z51.81 Encounter for therapeutic drug level monitoring | CPT/HCPCS: 85610; 99211 ==

== ENCOUNTER 2023-04-29 13:01 | Outpatient (REF) | payer MEDICARE, SELFPAY ==
--- NOTE | ~2023-04-29 | MR_ITS ---
EXAMINATION: MR ABDOMEN WITHOUT AND WITH CONTRAST CLINICAL INFORMATION: Malignant neoplasm of kidney, status post left nephrectomy. COMPARISON: CT abdomen and pelvis from 02/22/2022 TECHNIQUE: MR abdomen was performed without and with use of 10 mL intravenous Gadavist contrast. Postcontrast images are performed in multiphase dynamic sequences. Imaging was performed in 3 planes. FINDINGS: The patient had difficulty sustaining breath-holds during this abdominal MRI. There is motion degradation of some of the imaging sequences. The abdominal images are predominantly focused at the level of the kidneys. Obese body habitus. Lung bases are unremarkable. The visualized liver is normal in size and there is no focal hepatic lesion or intrahepatic ductal dilatation. The gallbladder is physiologically distended. No evidence of cholelithiasis. Pancreas is chronically atrophied. No focal pancreatic lesion. Spleen is normal. Adrenal glands are normal. The left kidney is surgically absent. No soft tissue nodularity or fluid in the nephrectomy bed. The right kidney has normal size, contour and parenchymal signal. No renal mass, hydronephrosis or perinephric edema. The abdominal aorta is normal in size and its visualized branches, including right renal artery, are widely patent. Inferior vena cava and right renal vein are normal. No pathologic sized lymph nodes. There is a chronic finding of a large hiatal hernia of the stomach. No dilated bowel loops. No mesenteric fat stranding or free fluid. Small fat-containing umbilical hernia is present. Multilevel facet osteoarthritis, discovertebral degenerative changes and dextrocurvature of the lumbar spine. No suspicious bone lesions. MR/MR abdomen wo/w con IMPRESSION: * Status post left nephrectomy. No evidence of a right renal tumor or metastatic disease within the abdomen. * Large hiatal hernia. * No new findings within the abdomen compared to 02/22/2022.
--- NOTE | ~2023-04-29 | XR_ITS ---
Clinical History: pre-MRI screening. [place] and lateral views of the orbits were obtained. The bony orbits are intact. No radiopaque foreign body is seen. The paranasal sinuses are clear. No other osseous abnormalities are identified. XR/XR pre mri screening Impression: Unremarkable orbits. No radiopaque foreign body seen.
== END 2023-04-29 13:02 | disposition home or self-care (01) ==
LOC: HO.MRI 13:01
PROVIDERS: PCP Internal Medicine; Visit Provider Urology
DX: C64.9 Malignant neoplasm of unspecified kidney, except renal pelvis (principal)
CPT/HCPCS: 74183; A9585

== ENCOUNTER 2023-05-01 10:45 | Outpatient (AMB) | payer MEDICARE, SELFPAY ==
[2023-05-01 10:52] LABS: Prothrombin Time Whole Bld POC 25.8 sec (11.1-13.5); ~PT, ~INR - Anti Coag Clinic 2.2 (0.9-1.1)
--- NOTE | 2023-05-01 10:59 | MHC.OFFVISCO ---
Intake Intake Visit Reasons: Anticoagulation Allergies aspirin [ASPIRIN] Adverse Reaction (Severe, Verified 05/01/23 10:54) GI BLEED Medication List - Last Reconciled 05/01/23 by Mildred Garcia, RN ammonium lactate 5% (Lac-Hydrin Five) 1 appl topical BID amoxicillin 875 mg PO BID clotrimazole-betameth dip-zinc 1-0.05-20 % apply CLOTRIMAZOLE/BETAMETHASONE CREAM twice daily: use ZINC OXIDE PASTE as needed/as directed warren.stocking,knee,reg,smal (T.E.D. Anti-Embolism Stocking) As directed ferrous sulfate (iron) 325 mg PO DAILY finasteride 5 mg PO DAILY 90 days indapamide 2.5 mg PO DAILY indapamide 2.5 mg PO DAILY lisinopril 40 mg PO DAILY lovastatin 40 mg PO DAILY metoprolol tartrate 25 mg PO BID sajrlxonzwuh-evfo-pxptv acid 18-400 mg-mcg (Centrum) 1 tab PO DAILY omeprazole 40 mg PO DAILY sennosides (senna) 8.6 mg PO DAILY warfarin 7.5 mg See Protocol PO DAILY Nursing Note INR: 2.6 in therapeutic range Medications and supplements reviewed Pt states his legs are still weeping just a little bit , applying cream to his legs, had MRI recently - results are pending to have f/u appt in with Dr Mike Dennitin any signs and symptoms of bleeding or bruising or clotting. Bleeding, bruising, clotting discussed Nutritional guidance given - eat a ,ix of fruits and vegetables , enc to have foods with vitc with his iron tab to help his body to absorb the iron better and also to help with wound healing Dose: 7.5MG DAILY F/U INR: 1 MONTH Patient verbalizes understanding of instructions given Anti-Coag Initial Assessment Social Hx Patient Tobacco Use Status: Never used Tobacco alcohol intake: current Alcohol intake frequency: holidays/special occasions only Questionnaires HAS-BLED Does the patient had uncontrolled Hypertension?: No Does the patient have renal disease?: Yes Does the patient have liver disease?: No Does the patient have a history of stroke?: No Has the patient had major bleeding or predisposition to bleeding?: No Does the patient have labile INRs?: No Is the patient over 65 years of age?: Yes Is the patient on medications that gives them a predisposition to bleeding?: Yes Does the patient use alcohol?: No HAS-BLED Score: 3 CHADSVASC Age: 75 or over Gender: Male Does the patient have a history of CHF?: No Does the patient have a history of Hypertension?: Yes Does the patient have a history of Stroke/TIA/Thromboembolism?: No Does the patient have a history of Vascular Disease (prior IL, PAD or aortic plaque)?: Yes Does the patient have a history of Diabetes?: No CHADS VACS Score: 4 Coral Prediction Score Rsk VTE Active Cancer: No Previous VTE, excluding superficial vein thrombosis: No Reduced mobility: Yes Already known Thrombophilic Condition: Yes With-in last month Trauma and/or Surgery: No Elderly 70 year or older: Yes Heart and/or Respiratory Failure: No Acute Myocardial infarction and/or Ischemic Stroke: No Acute Infection and/or Rheumatologic Disorder: No Obesity (BMI 30 or greater): Yes Ongoing Hormonal Treatment: No Score: 8 Coral Score less than 4; Low Risk of VTE Coral Score 4 or greater; High Risk of VTE Coding Level of Care Code Est Patient Level 1 Diagnoses Current use of anticoagulant therapy Z79.01 Assessment & Plan Assessment & Plan (1) Current use of anticoagulant therapy: Code(s): Z79.01 - group home (current) use of anticoagulants Category: Medical
== END 2023-05-01 11:11 | disposition home or self-care (01) ==
LOC: HO.ACS 10:45
PROVIDERS: PCP Internal Medicine; Visit Provider Internal Medicine
DX: Z79.01 Long term (current) use of anticoagulants (principal)

== ENCOUNTER → 2023-05-01 10:45 | Outpatient (BNVA) | payer MEDICARE, SELFPAY | PROVIDERS: PCP Internal Medicine; Visit Provider Internal Medicine | DX: I48.19 Other persistent atrial fibrillation (principal); Z79.01 Long term (current) use of anticoagulants; Z51.81 Encounter for therapeutic drug level monitoring | CPT/HCPCS: 85610; 99211 ==

== ENCOUNTER 2023-05-29 11:05 | Outpatient (AMB) | payer MEDICARE, SELFPAY ==
[2023-05-29 11:15] LABS: Prothrombin Time Whole Bld POC 34.5 sec (11.1-13.5); ~PT, ~INR - Anti Coag Clinic 2.9 (0.9-1.1)
--- NOTE | 2023-05-29 11:17 | MHC.OFFVISCO ---
Intake Intake Visit Reasons: Anticoagulation Allergies aspirin [ASPIRIN] Adverse Reaction (Severe, Verified 05/29/23 11:10) GI BLEED Medication List - Last Reconciled 05/29/23 by Melva Aguero, RN ammonium lactate 5% (Lac-Hydrin Five) 1 appl topical BID amoxicillin 875 mg PO BID clotrimazole-betameth dip-zinc 1-0.05-20 % apply CLOTRIMAZOLE/BETAMETHASONE CREAM twice daily: use ZINC OXIDE PASTE as needed/as directed warren.stocking,knee,reg,smal (T.E.D. Anti-Embolism Stocking) As directed ferrous sulfate (iron) 325 mg PO DAILY finasteride 5 mg PO DAILY 90 days indapamide 2.5 mg PO DAILY indapamide 2.5 mg PO DAILY lisinopril 40 mg PO DAILY lovastatin 40 mg PO DAILY metoprolol tartrate 25 mg PO BID xnrynlxzkizg-fsxy-tyftb acid 18-400 mg-mcg (Centrum) 1 tab PO DAILY omeprazole 40 mg PO DAILY sennosides (senna) 8.6 mg PO DAILY warfarin 7.5 mg See Protocol PO DAILY Nursing Note Amb to [facility] , using walker, feeling ok Medications and supplements reviewed, thinks he might have taken an extra pill one day I dropped a pill and wasn't sure if it was a half or a whole No other changes in health, diet, medications, or supplements Denies any unusual signs and symptoms of bruising, bleeding Denies any new Chest pain, SOB, or clotting INR: 2.9 in therapeutic range Nutritional guidance given: balance greens and reds in diet, sts he is eating lettuce from his garden Dose: continue usual dosing;7.5mg daily F/U INR: 4 weeks Patient verbalizes understanding of instructions given with accurate read back/ teach back of dosing Anti-Coag Initial Assessment Social Hx Patient Tobacco Use Status: Never used Tobacco alcohol intake: current Alcohol intake frequency: holidays/special occasions only Coding Level of Care Code Est Patient Level 1 Diagnoses Current use of anticoagulant therapy Z79.01 Time Spent (min) 15 Assessment & Plan Assessment & Plan (1) Current use of anticoagulant therapy: Code(s): Z79.01 - senior care (current) use of anticoagulants Category: Medical
== END 2023-05-29 11:22 | disposition home or self-care (01) ==
LOC: HO.ACS 11:05
PROVIDERS: PCP Internal Medicine; Visit Provider Internal Medicine
DX: Z79.01 Long term (current) use of anticoagulants (principal)

== ENCOUNTER → 2023-05-29 11:05 | Outpatient (BNVA) | payer MEDICARE, SELFPAY | PROVIDERS: PCP Internal Medicine; Visit Provider Internal Medicine | DX: I48.19 Other persistent atrial fibrillation (principal); Z79.01 Long term (current) use of anticoagulants; Z51.81 Encounter for therapeutic drug level monitoring | CPT/HCPCS: 85610; 99211 ==

== ENCOUNTER 2023-06-26 11:02 | Outpatient (AMB) | payer MEDICARE, SELFPAY ==
--- NOTE | 2023-06-26 11:16 | MHC.OFFVISCO ---
Intake Intake Visit Reasons: Anticoagulation Allergies aspirin [ASPIRIN] Adverse Reaction (Severe, Verified 06/26/23 11:04) GI BLEED Medication List - Last Reconciled 06/26/23 by Anuja Carlson, RN ammonium lactate 5% (Lac-Hydrin Five) 1 appl topical BID amoxicillin 875 mg PO BID clotrimazole-betameth dip-zinc 1-0.05-20 % apply CLOTRIMAZOLE/BETAMETHASONE CREAM twice daily: use ZINC OXIDE PASTE as needed/as directed warren.stocking,knee,reg,smal (T.E.D. Anti-Embolism Stocking) As directed ferrous sulfate (iron) 325 mg PO DAILY finasteride 5 mg PO DAILY 90 days indapamide 2.5 mg PO DAILY indapamide 2.5 mg PO DAILY lisinopril 40 mg PO DAILY lovastatin 40 mg PO DAILY metoprolol tartrate 25 mg PO BID xfuuxzijntna-boiv-yfbcb acid 18-400 mg-mcg (Centrum) 1 tab PO DAILY omeprazole 40 mg PO DAILY sennosides (senna) 8.6 mg PO DAILY warfarin 7.5 mg See Protocol PO DAILY Nursing Note NO CP,SOB,DIET/MED CHANGES,FALLS OR SX OF BLEEDING. CONTINUE PRESENT DOSE AND FOLLOW-UP IN 4 WEEKS. GOOD UNDERSTANDING OF DOSING INSTR. Anti-Coag Initial Assessment Social Hx Patient Tobacco Use Status: Never used Tobacco alcohol intake: current Alcohol intake frequency: holidays/special occasions only Coding Level of Care Code Est Patient Level 1 Diagnoses Current use of anticoagulant therapy Z79.01 Assessment & Plan Assessment & Plan (1) Current use of anticoagulant therapy: Code(s): Z79.01 - half-way (current) use of anticoagulants Category: Medical
== END 2023-06-26 11:18 | disposition home or self-care (01) ==
LOC: HO.ACS 11:02
PROVIDERS: PCP Internal Medicine; Visit Provider Internal Medicine
DX: Z79.01 Long term (current) use of anticoagulants (principal)

== ENCOUNTER → 2023-06-26 11:02 | Outpatient (BNVA) | payer MEDICARE, SELFPAY | PROVIDERS: PCP Internal Medicine; Visit Provider Internal Medicine | DX: I48.19 Other persistent atrial fibrillation (principal); Z51.81 Encounter for therapeutic drug level monitoring; Z79.01 Long term (current) use of anticoagulants | CPT/HCPCS: 85610; 99211 ==

== ENCOUNTER 2023-06-27 08:55 | Outpatient (AMB) | payer MEDICARE, SELFPAY ==
--- NOTE | 2023-06-27 09:12 | MHC.OFFVIS ---
Intake Intake Visit Reasons: MRI/Renal Cancer/BPH(SET) Intake Note: Patient is Present for Follow Up MRI/PVR Urology Medication: Finasteride Antibiotic Allergies: None Blood Thinners: Warfarin Pharmacy: [facility] PVR: 0 Allergies aspirin [ASPIRIN] Adverse Reaction (Severe, Verified 06/27/23 09:13) GI BLEED HPI HPI Comments History of Present Illness Details Shakir is a pleasant male. He seen for the following urologic issues - renal cancer - lower urinary tract symptoms - on tamsulosin 06/14 5 yr imaging MRI Status post left nephrectomy. No evidence of a right renal tumor or metastatic disease within the abdomen. * Large hiatal hernia Continue surveillance - consider yearly labs and cross sectional imaging every 2 years starting at 5 yr post procedure Renal cancer. Nephrectomy 12/0718 Grade pT3a with neoadjuvant sutent Good renal function Continue with imaging surveillance They present for continued followup and management, left side, renal cancer. The renal mass was diagnosed during evaluation for, hematuria 07/08 in hospital. Imaging included 07/08 , a CT (computed tomography) scan of the abdomen/pelvis - , showing a solid mass, >5.9 cm in size, on the left (8cm), no brad enlargement 09/07 , a CT (computed tomography) scan of the abdomen/pelvis partial reduction on a solid mass. Improvement of inflammation. Minimal brad involvement.. Prior treatment(s) included 12/07 , nephrectomy. Staging of initial cancer T2, with no positive lymph nodes, without vena cava involvement, without metastasis - 07/08 CT chest - no nodules - 07/08 - Bone Scan negative 12/07 pT3aN0 - sutent pre and post op The diagnosis was renal cell carcinoma, Grade IV - extension into gerotas space, margin negative. Recent labs include 12/07 , a creatinine 0.88 03/09 C 1.05 01/08 Cr 1.09 stable 07/10 1.2, 09/11 Cr 1.1, 02/10 1.0 Follow up imaging includes 03/09 , abdominal CT scan, chest xray, stable post intervention changes 09/08 , chest xray, renal US - NAD 01/08 CT imaging stable abdo/chest - 07/10 CT imaging chest stable, 08/11 chest x-ray and renal ultrasound normal, 02/09 - CT scan stable, 02/[address] normal - 08/13 CXR NAD Plan - - Recommended surveillance will include?clinical assessment, blood biochemistry, and chest x-ray every 6 months for 3 years then yearly. 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) Alcohol intake: current Alcohol intake frequency: holidays/special occasions only Patient Tobacco Use Status: Never used Tobacco service: Yes Current occupational status: retired Review of Systems Const Denies chills and Denies fever(s) Card Reports no additional complaints and Denies syncope Resp Denies cough GI Denies abdominal pain and Denies heartburn Reports as per HPI and Denies change in libido Neuro Denies syncope Psych Denies change in libido Endo Denies change in libido Physical Exam Const General: cooperative, healthy appearing, comfortable and no acute distress Orientation/consciousness: patient oriented x3 HEENT Face and sinus: Yes normal facial exam Mouth: moist mucous membranes Neck Neck: Yes normal visual inspection, Yes full ROM and Yes trachea midline Chest Chest palpation & inspection: normal inspection of the chest Resp Effort & Inspection: normal respiratory effort, able to speak in complete sentences and no respiratory distress GI Inspection: Yes normal to inspection Back/Spine/Pelvis Cervical Spine: normal cervical lordosis Thoracic/Lumbar Spine: thoracic and lumbar spine normal to inspection Skin General skin exam: no rashes or lesions noted Neuro General: patient oriented x3, gait normal, tone normal and moves all extremities Extrem General: Yes normal to inspection and Yes capillary refill normal Office Procedures Post Void Residual Post Residual Void Post Void Residual (PVR): 0 [id number] Void Residual by ultrasound Results AMB Urinalysis, Automated UA Leukoctes 0 Harry/uL Last Edit by Amrita Lion, A on 06/27/23 09:25 UA Nitrite Negative Last Edit by Amrita Lion, A on 06/27/23 09:25 UA Urobilinogen 8 mg/dL Last Edit by Amrita Lion, A on 06/27/23 09:25 UA Protein 100 mg/dL Last Edit by Amrita Lion, A on 06/27/23 09:25 UA pH 7.0 Last Edit by Amrita Lion, A on 06/27/23 09:25 UA Blood 0 Alfredito/uL Last Edit by Amrita Lion, A on 06/27/23 09:25 UA Specific [place] 1.015 Last Edit by Amrita Lion, A on 06/27/23 09:25 UA Ketone Negative Last Edit by Amrita Lion, A on 06/27/23 09:25 UA Bilirubin 0 mg/dL Last Edit by Amrita Lion, A on 06/27/23 09:25 UA Glucose 0 mg/dL Last Edit by Amrita Lion, A on 06/27/23 09:25 Results Reviewed Results Reviewed: Laboratory Last Values Urine pH (Auto) 7.0 06/27/23 09:14 Specific [place] (Auto) 1.015 06/27/23 09:14 Urine Protein (Auto) 100 mg/dL 06/27/23 09:14 Glucose (UA)(Auto) 0 mg/dL 06/27/23 09:14 Urine Ketones (Auto) Negative 06/27/23 09:14 Urine Blood (Auto) 0 Alfredito/uL 06/27/23 09:14 Urine Nitrite (Auto) Negative 06/27/23 09:14 Urine Bilirubin (Auto) 0 mg/dL 06/27/23 09:14 Urine Urobilinogen (Auto) 8 mg/dL 06/27/23 09:14 Leukocyte Esterase (Auto) 0 Harry/uL 06/27/23 09:14 Assessment & Plan Assessment & Plan (1) Renal cell cancer: Comment: left Nx 11/2017 - pT3a neoadjuvant therapy Code(s): C64.9 - Malignant neoplasm of unspecified kidney, except renal pelvis Qualifiers: Laterality: left Qualified Code(s): C64.2 - Malignant neoplasm of left kidney, except renal pelvis Plan Six month follow-up x-ray Orders: Orders AMB Urinalysis Automated Today Z13.9 - Encounter for screening, unspecified AMB Post Void Residual by ultrasound Today N13.8 - Other obstructive and reflux uropathy, N40.1 - Benign prostatic hyperplasia with lower urinary tract symptoms XR chest 2V 6 Months C64.9 - Malignant neoplasm of unspecified kidney, except renal pelvis Patient Instructions: Imaging studies, laboratory and physical exam results were discussed and reviewed in detail. No major barriers to patient understanding were identified. An opportunity to ask questions regarding the treatment plan was provided. All questions were answered. The patient expressed understanding and agreement with the above treatment plan. The patient is aware they should contact our office by phone for worsening of their current condition or the appearance of new urologic symptoms. Compliance is encouraged with any medications and followup testing that is ordered. It is a privilege to participate in the urologic care of your patient. If you have any questions or concerns regarding treatment for the above conditions, or other urologic issues, please do not hesitate to contact me. The office telephone contact is [phone]. This note is constructed using voice recognition software. While every effort has been made to ensure accuracy tube mounter errors may have been included. Yours sincerely, Dr Carlos Camara MD, [facility] - Urology Providers of Expert, Compassionate Care for the Genitourinary System Coding Level of Care Code Est Pt Level 3 (82716) Diagnoses Renal cell carcinoma of left kidney C64.2 Laterality: left CPT Codes Post Residual Void - PVR CPT Code: [id number] Void Residual by ultrasound ([id number])
== END 2023-06-27 09:34 | disposition home or self-care (01) ==
PROVIDERS: PCP Internal Medicine; Visit Provider Urology
DX: C64.2 Malignant neoplasm of left kidney, except renal pelvis (principal); Z13.9 Encounter for screening, unspecified
CPT/HCPCS: 99213

== ENCOUNTER → 2023-06-27 08:55 | Outpatient (BNVA) | payer MEDICARE, SELFPAY | PROVIDERS: Visit Provider Urology | DX: C64.2 Malignant neoplasm of left kidney, except renal pelvis (principal) | CPT/HCPCS: 51798; 81003; 99212 ==

== ENCOUNTER 2023-07-24 11:08 | Outpatient (AMB) | payer MEDICARE, SELFPAY ==
[2023-07-24 11:15] LABS: Prothrombin Time Whole Bld POC 32.7 sec (11.1-13.5); ~PT, ~INR - Anti Coag Clinic 2.7 (0.9-1.1)
--- NOTE | 2023-07-24 11:20 | MHC.OFFVISCO ---
Intake Intake Visit Reasons: Anticoagulation Allergies aspirin [ASPIRIN] Adverse Reaction (Severe, Verified 07/24/23 11:08) GI BLEED Medication List - Last Reconciled 07/24/23 by Mildred Garcia, RN ammonium lactate 5% (Lac-Hydrin Five) 1 appl topical BID clotrimazole-betameth dip-zinc 1-0.05-20 % apply CLOTRIMAZOLE/BETAMETHASONE CREAM twice daily: use ZINC OXIDE PASTE as needed/as directed warren.stocking,knee,reg,smal (T.E.D. Anti-Embolism Stocking) As directed diphenhydramine HCl (Banophen) 25 mg PO BEDTIME PRN ferrous sulfate (iron) 325 mg PO DAILY finasteride 5 mg PO DAILY 90 days indapamide 5 mg PO DAILY lisinopril 40 mg PO DAILY lovastatin 40 mg PO DAILY metoprolol tartrate 25 mg PO BID klnkfrleicqz-yyzm-evuam acid 18-400 mg-mcg (Centrum) 1 tab PO DAILY omeprazole 40 mg PO DAILY sennosides (senna) 8.6 mg PO DAILY warfarin 7.5 mg See Protocol PO DAILY Nursing Note INR: 2.7 in therapeutic range Medications and supplements reviewed No changes in health, diet, medications, or supplements, Denies any signs and symptoms of bleeding or bruising or clotting. Bleeding, bruising, clotting discussed Nutritional guidance given Dose: 7.5MG DAILY F/U INR: `1 MONTH Patient verbalizes understanding of instructions given Anti-Coag Initial Assessment Social Hx Patient Tobacco Use Status: Never used Tobacco alcohol intake: current Alcohol intake frequency: holidays/special occasions only Coding Level of Care Code Est Patient Level 1 Diagnoses Current use of anticoagulant therapy Z79.01 Assessment & Plan Assessment & Plan (1) Current use of anticoagulant therapy: Code(s): Z79.01 - manager terminal (current) use of anticoagulants Category: Medical
== END 2023-07-24 11:22 | disposition home or self-care (01) ==
LOC: HO.ACS 11:08
PROVIDERS: PCP Internal Medicine; Visit Provider Internal Medicine
DX: Z79.01 Long term (current) use of anticoagulants (principal)

== ENCOUNTER → 2023-07-24 11:08 | Outpatient (BNVA) | payer MEDICARE, SELFPAY | PROVIDERS: PCP Internal Medicine; Visit Provider Internal Medicine | DX: I48.19 Other persistent atrial fibrillation (principal); Z79.01 Long term (current) use of anticoagulants; Z51.81 Encounter for therapeutic drug level monitoring | CPT/HCPCS: 85610; 99211 ==

== ENCOUNTER 2023-08-28 11:24 | Outpatient (AMB) | payer MEDICARE, SELFPAY ==
--- NOTE | 2023-08-28 11:30 | MHC.OFFVISCO ---
Intake Intake Visit Reasons: Anticoagulation Allergies aspirin [ASPIRIN] Adverse Reaction (Severe, Verified 08/28/23 11:25) GI BLEED Medication List - Last Reconciled 08/28/23 by Terrie Hernandez RN ammonium lactate 5% (Lac-Hydrin Five) 1 appl topical BID clotrimazole-betameth dip-zinc 1-0.05-20 % apply CLOTRIMAZOLE/BETAMETHASONE CREAM twice daily: use ZINC OXIDE PASTE as needed/as directed warren.stocking,knee,reg,smal (T.E.D. Anti-Embolism Stocking) As directed diphenhydramine HCl (Banophen) 25 mg PO BEDTIME PRN ferrous sulfate (iron) 325 mg PO DAILY finasteride 5 mg PO DAILY 90 days indapamide 5 mg PO DAILY lisinopril 40 mg PO DAILY lovastatin 40 mg PO DAILY metoprolol tartrate 25 mg PO BID ynswhdpxtqsj-mkjh-iviao acid 18-400 mg-mcg (Centrum) 1 tab PO DAILY omeprazole 40 mg PO DAILY sennosides (senna) 8.6 mg PO DAILY warfarin 7.5 mg See Protocol PO DAILY Nursing Note INR: 2.2- in therapeutic range of 2-3 Medications and supplements reviewed- no changes No changes in health, diet, medications, or supplements, Denies any signs and symptoms of bleeding or bruising or clotting. Bleeding, bruising, clotting discussed Nutritional guidance given Dose: 7.5mg x 7 F/U INR: 4 weeks Patient verbalizes understanding of instructions given Anti-Coag Initial Assessment Social Hx Patient Tobacco Use Status: Never used Tobacco alcohol intake: current Alcohol intake frequency: holidays/special occasions only Coding Level of Care Code Est Patient Level 1 Diagnoses Current use of anticoagulant therapy Z79.01 Assessment & Plan Assessment & Plan (1) Current use of anticoagulant therapy: Code(s): Z79.01 - group home (current) use of anticoagulants Category: Medical
[2023-08-28 11:31] LABS: Prothrombin Time Whole Bld POC 26.9 sec (11.1-13.5); ~PT, ~INR - Anti Coag Clinic 2.2 (0.9-1.1)
== END 2023-08-28 11:36 | disposition home or self-care (01) ==
LOC: HO.ACS 11:24
PROVIDERS: PCP Internal Medicine; Visit Provider Internal Medicine
DX: Z79.01 Long term (current) use of anticoagulants (principal)

== ENCOUNTER → 2023-08-28 11:24 | Outpatient (BNVA) | payer MEDICARE, SELFPAY | PROVIDERS: PCP Internal Medicine; Visit Provider Internal Medicine | DX: I48.19 Other persistent atrial fibrillation (principal); Z79.01 Long term (current) use of anticoagulants; Z51.81 Encounter for therapeutic drug level monitoring | CPT/HCPCS: 85610; 99211 ==

== ENCOUNTER 2023-12-22 10:56 | Outpatient (REF) | payer MEDICARE, SELFPAY ==
--- NOTE | ~2023-12-22 | XR_ITS ---
EXAMINATION: XR CHEST CLINICAL INFORMATION: Reason for Exam C64.9 - Malignant neoplasm of unspecified kidney, except renal pelvis COMPARISON: Chest radiograph 08/11/2022 TECHNIQUE: 2 views of the chest FINDINGS: Lines and tubes: None. Cardiac silhouette is mild to moderately enlarged similar to prior. No pleural effusion. No pneumothorax. Similar large hiatal hernia with relatively similar retrocardiac opacities which may reflect atelectasis in the setting of a large hernia however superimposed infection or aspiration would be difficult to exclude. XR/XR chest 2V IMPRESSION: 1. Cardiac silhouette is mild to moderately enlarged similar to prior. 2. Similar large hiatal hernia with relatively similar retrocardiac opacities which may reflect atelectasis in the setting of a large hernia however superimposed infection or aspiration would be difficult to exclude.
== END 2023-12-22 10:57 | disposition home or self-care (01) ==
LOC: HO.XRAY 10:56
PROVIDERS: PCP Internal Medicine; Visit Provider Urology
DX: C64.9 Malignant neoplasm of unspecified kidney, except renal pelvis (principal)
CPT/HCPCS: 71046

== ENCOUNTER 2024-02-03 11:33 | Outpatient (AMB) | payer MEDICARE, SELFPAY ==
--- NOTE | 2024-02-03 11:34 | A.OFFVIS_ITS ---
Intake Visit Reasons: 6m x-ray(set) Intake Note: Patient is Present for Telephone Follow Up For Urology Med: Finasteride Antibiotic Allergy: None Blood Thinner:Warfarin Allergies aspirin [ASPIRIN] Adverse Reaction (Severe, Verified 10/22/23 11:01) GI BLEED Medication List - Last Reconciled 02/03/24 by Carlos Camara MD ammonium lactate 5% (Lac-Hydrin Five) 1 appl topical BID clotrimazole-betameth dip-zinc 1-0.05-20 % apply CLOTRIMAZOLE/BETAMETHASONE CREAM twice daily: use ZINC OXIDE PASTE as needed/as directed warren.stocking,knee,reg,smal (T.E.D. Anti-Embolism Stocking) As directed diphenhydramine HCl (Banophen) 25 mg PO BEDTIME PRN ferrous sulfate (iron) 325 mg PO DAILY finasteride 5 mg PO DAILY 90 days indapamide 5 mg PO DAILY lisinopril 40 mg PO DAILY lovastatin 40 mg PO DAILY metoprolol tartrate 25 mg PO BID fswqgbrigfqa-heaa-tamus acid 18-400 mg-mcg (Centrum) 1 tab PO DAILY omeprazole 40 mg PO DAILY sennosides (senna) 8.6 mg PO DAILY warfarin 7.5 mg See Protocol PO DAILY HPI Comments Details: Shakir is a pleasant male. He is a patient of Dr. Haddad. He seen for the following urologic issues - renal cancer - lower urinary tract symptoms - on tamsulosin Telemedicine Evaluation 15 min Consultation [facility] Video attempted 6 yr f/u Stroke Sep 2209/2023 On lasix for fluid retention Nocturia x2 Twelve month follow-up abdominal imaging and chest x-ray 06/14 5 yr imaging MRI Status post left nephrectomy. No evidence of a right renal tumor or metastatic disease within the abdomen. * Large hiatal hernia Continue surveillance - consider yearly labs and cross sectional imaging every 2 years starting at 5 yr post procedure Lower urinary tract symptoms Remains on finasteride Renal cancer. Nephrectomy 12/0718 Grade pT3a with neoadjuvant sutent Good renal function Continue with imaging surveillance They present for continued followup and management, left side, renal can cer. The renal mass was diagnosed during evaluation for, hematuria 07/08 in hospital. Imaging included 07/08 , a CT (computed tomography) scan of the abdomen/pelvis - , showing a solid mass, >5.9 cm in size, on the left (8cm), no brad enlargement 09/07 , a CT (computed tomography) scan of the abdomen/pelvis partial reduction on a solid mass. Improvement of inflammation. Minimal brad involvement.. Prior treatment(s) included 12/07 , nephrectomy. Staging of initial cancer T2, with no positive lymph nodes, without vena cava involvement, without metastasis - 07/08 CT chest - no nodules - 07/08 - Bone Scan negative 12/07 pT3aN0 - sutent pre and post op The diagnosis was renal cell carcinoma, Grade IV - extension into gerotas space, margin negative. Recent labs include 12/07 , a creatinine 0.88 03/09 C 1.05 01/08 Cr 1.09 stable, 07/10 1.2, 09/11 Cr 1.1, 02/10 1.0 Follow up imaging includes 03/09 , abdominal CT scan, chest xray, stable post intervention changes 09/08 , chest xray, renal US - NAD 01/08 CT imaging stable abdo/chest - 07/10 CT imaging chest stable, 08/11 chest x-ray and renal ultrasound normal, 02/09 - CT scan stable, 02/[address] normal - 08/13 CXR NAD Plan - - Recommended surveillance will include?clinical assessment, blood biochemistry, and chest x-ray every 6 months for 3 years then yearly. 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) Alcohol intake: current Alcohol intake frequency: holidays/special occasions only Patient Tobacco Use Status: Never used Tobacco service: Yes Current occupational status: retired Review of Systems Const All systems reviewed & are unremarkable except as noted in HPI and below Reports no additional complaints Resp Reports no additional complaints GI Reports no additional complaints Reports as per HPI Musc Reports no additional complaints Physical Exam Telemedicine evaluation Appropriate responses Regular breathing rate and rhythm HEENT Head: Yes normal to inspection Ears: hearing grossly normal bilaterally Eyes General: appearance normal, both eyes and all related structures Neck Neck: Yes normal visual inspection Chest Chest palpation & inspection: normal inspection of the chest Resp Effort & Inspection: normal respiratory effort and able to speak in complete sentences Telehealth Telehealth Telehealth Platform: [employer] Location of provider rendering services: practice address Location of patient: address on file Patient Identification confirmed using: Name, : Yes Telehealth method: video Patient verbally consented to treatment: Yes Patient verbally consented to billing insurance company: Yes Patient informed of any privacy concerns related to visit: Yes Minutes spent on Phone/Video with Pt.: 15 Assessment & Plan Assessment & Plan (1) Renal cell cancer: Comment: left Nx 11/2017 - pT3a neoadjuvant therapy Code(s): C64.9 - Malignant neoplasm of unspecified kidney, except renal pelvis Category: Medical Qualifiers: Laterality: left Qualified Code(s): C64.2 - Malignant neoplasm of left kidney, except renal pelvis (2) BPH w urinary obs/LUTS: Code(s): N40.1 - Benign prostatic hyperplasia with lower urinary tract symptoms; N13.8 - Other obstructive and reflux uropathy Category: Medical (3) Nocturia more than twice per night: Code(s): R35.1 - Nocturia Category: Medical Plan One year follow-up imaging Orders: Orders MR kidney wo/w con 1 Year C64.2 - Malignant neoplasm of left kidney, except renal pelvis XR chest 2V 1 Year C64.2 - Malignant neoplasm of left kidney, except renal pelvis Blood Urea Nitrogen 364 Days C64.2 - Malignant neoplasm of left kidney, except renal pelvis Creatinine 364 Days C64.2 - Malignant neoplasm of left kidney, except renal pelvis Medications: Changed From finasteride 5 mg PO DAILY 30 days 30 tabs 0RF To finasteride 5 mg PO DAILY 90 days 90 tabs 3RF Patient Instructions: Imaging studies, laboratory and physical exam results were discussed and reviewed in detail. No major barriers to patient understanding were identified. An opportunity to ask questions regarding the treatment plan was provided. All questions were answered. The patient expressed understanding and agreement with the above treatment plan. The patient is aware they should contact our office by phone for worsening of their current condition or the appearance of new urologic symptoms. Compliance is encouraged with any medications and followup testing that is ordered. It is a privilege to participate in the urologic care of your patient. If you have any questions or concerns regarding treatment for the above conditions, or other urologic issues, please do not hesitate to contact me. The office telephone contact is [phone]. This note is constructed using voice recognition software. While every effort has been made to ensure accuracy program dir errors may have been included. Yours sincerely, Dr Carlos Camara MD, [facility] - Urology Providers of Expert, Compassionate Care for the Genitourinary System Coding Level of Care Code Tele Est Pt Level 4 (04913) Diagnoses Renal cell carcinoma of left kidney C64.2 Laterality: left BPH w urinary obs/LUTS N40.1; N13.8 Nocturia more than twice per night R35.1
== END 2024-02-03 12:09 | disposition home or self-care (01) ==
LOC: HO.HUSH 11:33
PROVIDERS: PCP Internal Medicine; Visit Provider Urology
DX: C64.2 Malignant neoplasm of left kidney, except renal pelvis (principal); N40.1 Benign prostatic hyperplasia with lower urinary tract symptoms; N13.8 Other obstructive and reflux uropathy; R35.1 Nocturia
CPT/HCPCS: 99214

== ENCOUNTER → 2024-02-03 11:33 | Outpatient (BNVA) | payer MEDICARE, SELFPAY | PROVIDERS: PCP Internal Medicine; Visit Provider Urology ==

== ENCOUNTER 2025-01-26 13:48 | Outpatient (REF) | payer MEDICARE, SELFPAY ==
--- NOTE | ~2025-01-26 | MR_ITS ---
EXAMINATION: MR ABDOMEN WITHOUT THEN WITH IV CONTRAST HISTORY: RENAL CELL CA COMPARISON: Comparison is made with the prior examination dated 04/29/2023. TECHNIQUE: Axial in and out of phase T1-weighted gradient echo, axial diffusion weighted, and axial and coronal HASTE T2 with fat saturation images were obtained through the abdomen. Subsequently, fat suppressed axial and coronal T1-weighted images were obtained after the intravenous administration of 10 mL Gadavist. FINDINGS: The patient is status post left nephrectomy. There is a 1.5 cm minimally T2 hyperintense nodule at the lower pole of the right kidney which demonstrates rim enhancement and possible internal enhancement. Evaluation is limited by the small size of the lesion and patient respiratory motion. No additional right renal abnormality is seen. There is no significant signal loss within the liver on opposed phase imaging to suggest steatosis. There is no enhancing liver mass. The hepatic and portal veins are patent. There is no intra or extrahepatic biliary ductal dilatation. The gallbladder, spleen, pancreas, and adrenals are unremarkable. No retroperitoneal lymphadenopathy or ascites is identified in the upper abdomen. There are small bilateral pleural effusions. There is a large hiatal hernia. There is degenerative disc disease of the spine. MR/MR abdomen wo/w con IMPRESSION: 1. Status post left nephrectomy. 1.5 cm nodule at the lower pole of the right kidney demonstrating peripheral and possibly central enhancement. Ultrasound correlation is suggested. If the lesion is not seen by ultrasound, renal protocol CT or close follow-up is recommended 2. Large hiatal hernia. Electronically signed by: Alexy Rollins MD 01/26/2025 03:27 PM EDT
[2025-01-26] MEDS: gadobutroL 10 ML VIAL IVPUSH (15:03)
--- OUTSIDE RECORDS SUMMARY | 2025-01-26 15:07 | XMS_ITS | Clinical Summary ---
Author Organization [facility] [address] [facility] Address [address] [place] [address] Phone Care Team Providers Care Machine Umbrella Tipper Name Role Phone Leona Hamilton MD Primary Care Prov ider Allergies Active Allergy Reactions Criticality Noted Date Comments Aspirin 11/15/2005 gi bleed Cephalexin Diarrhea,Rash 07/16/2024 Medications ferrous sulfate (IRON ORAL) 1 TABLET DAILY Active MAGNESIUM ORAL Take 1 Tablet by mouth every other day. 4 Active MULTIVITAMIN ORAL 1 qd Ac tive clotrimazole (LOTRIMIN) 1 % cream Apply to affected areas (right foot) twice daily for 2 weeks 4 Active finasteride (PROSCAR) 5 mg tablet Take 5 mg by mouth daily. Active Lactobacillus rhamnosus GG 15 billion cell capsule, sprinkle Take 1 capsule by mouth 1 (one) time each day. 4 Active lisinopriL (PRINIVIL,ZESTRIL ) 20 mg tablet Take 1 tablet (20 mg total) by mouth 1 (one) time each day. 4 Active silver sulfADIAZINE (SILVADENE, SSD) 1 % cream Apply to affected areas twice daily for 2 weeks 4 07/18/20 25 Active torsemide (DEMADEX) 10 mg tablet Take 1 tablet (10 mg total) by mouth 1 (one) time each day. 4 Active metoprolol tartrate (LOPRESSOR) 25 mg tablet TAKE 1 TABLET BY MOUTH TWICE A DAY 180 tablet 1 4 Active atorvastatin (LIPITOR) 40 mg tablet TAKE 1 TABLET BY MOUTH EVERY DAY 90 tablet 1 5 Active Eliquis 5 mg tablet TAKE 1 TABLET BY MOUTH TWICE A DAY 180 tablet 5 Active omeprazole (PriLOSEC) [address] capsule Take 1 capsule (40 mg total) by mouth 1 (one) time each day. 90 each 3 5 11/05/19 26 Active Banophen 25 mg capsule TAKE 1 CAPSULE BY MOUTH AT BEDTIME NEEDED FOR ITCHING. 90 capsule 1 5 Active Active Problems Problem Noted Date Diagnosed Date Class 2 severe obesity with serious comorbidity and body mass index (BMI) of 37.0 to 37.9 in adult ([facility] V24, [facility] V28) 08/25/2024 (HFpEF) heart failure with p reserved ejection fraction ([facility] V24, [facility] V28) 11/20/2023 Overview (08/25/2024): Last Assessment & Plan: This gentleman has severe peripheral edema likely due to diastolic heart failure and perhaps some peripheral venous insufficiency. I am going to stop his indapamide and start him on Lasix 20 mg daily. He will get labs in a week to check his creatinine and potassium. We talked about the need to be careful with his kidneys given he has a single kidney but he is volume overloaded at this point enough to warrant a loop diuretic. I will review his echocardiogram which is scheduled for next month to see if there is any LV dysfunction, valvular disease or diastolic dysfunction. He will continue a low-sodium diet monitor his weight daily. Stroke (cerebrum) ([facility] V24, [facility] V28) Lymphedema 07/06/2021 Bilateral leg edema 05/10/2021 Incidental lung nodule, greater than or equal to 8mm 10/04/2020 Abnormal chest x-ray 02/22/2020 Overview (08/25/2024): 02/08 new 8 mm nodular density of the left lung apex not seen on recent chest x- ray from December [address] Hercules's note: pt had CT of chest & abdomen 01/06/20: unchanged from s/p left nephrectomy with no new findings, CXR in mid July also normal Elevated alkaline phosphatase level 07/08/2019 Hyperlipidemia 12/16/2017 Assessment & Plan (11/05/2024 11:56 AM EST): Currently on atorvastatin 40 mg daily. Instructed to continue taking this medication. Low-fat diet and regular activity were discussed with the patient. Orders: Lipid panel with reflex to direct LDL; Future Comprehensive metabolic panel; Future Renal cell cancer, left ([facility] V24, [facility] V2 8) 12/08/2017 Overview (08/25/2024): S/p nephrectomy by Dr. Camara Renal mass, left 08/22/2017 Overview (08/25/2024): Seeing Dr. Mike and Dr. Hercules-oncology, suspect renal cell CA Atrial fibrillation ([facility] V24, [facility] V28) 0 04/05/2017 Overview (08/25/2024): Chronic persistent atrial fibrillation. Treated with metoprolol for rate control and anticoagulation for many years with warfarin. Transition to Eliquis after CVA. Last Assessment & Plan: Appears to have atrial fibrillation for many years. Small likelihood of maintaining sinus rhythm so we will continue with rate control using metoprolol and anticoagulation with Eliquis. We had discussion regarding pros and cons of anticoagulation and he is in agreement to continue with Eliquis. He has some difficulty getting the medication from a cost standpoint but thinks he is okay for now. Assessment & Plan (11/05/2024 11:56 AM EST): On apixaban, Metoprolol. Denies any chest pain, palpitations or dizziness. Continue same medications. He follows regularly with cardiology. Pending to make an appointment. Gout 06/02/2014 Prediabetes 11/20/2012 Assessment & Plan (11/05/2024 11:56 AM EST): Patient follows the recommended diet. Will recheck an A1c before his next visit. Orders: Hemoglobin A1c; Future Stasis dermatitis 01/18/2011 GI bleed 08/24/2009 Osteoarthrosis, localized, primary, involving lo wer leg 02/10/2006 Overview (08/25/2024): Right knee IMO Update Fall 2015 Essential hypertension, benign 11/27/2005 Esophageal reflux 11/15/2005 Encounters Date Type Department Care Team Description 01/05/2025 12:00 PM EDT Ancillary Procedure [facility] [address] [place] [address] Bilateral leg edema 12/03/2024 Telephone Vascular Surgery - [place] [address] [place] [phone] Madelin Hart PA Forms/questionnaires (/) 11/23/2024 1:30 PM EST Consult Vascular Surgery - [place] [address] [place] [phone] Madelin Hart PA Lymphedema (Primary Dx); Obesity (BMI 30-39.9); Bilateral leg edema 11/05/2024 11:00 AM EST Office Visit Adult Medicine [address] [address] Kelsie bettencourt, Leona Christian MD Primary hypertension (Primary Dx); Mixed hyperlipidemia; Paroxysmal atrial fibrillation (CMS/HCC V24, CMS/HCC V28); Prediabetes; Encounter for screening involving social determinants of health (SDoH) from Last 3 Months Immunizations Name Administration Dates Next Due Influenza trivalent, 0.5mL ( Fluad) 65yo and older 06/22/2024,07/08/2023,08/21/2022,10/09 Influenza trivalent, 0.5mL, preservative free (Fluarix; FluLaval; Fluzone) ages 6mo and older (Afluria) 3 years and older 06/30/2015 Pfizer SARS-CoV-2 COVID-19, mRNA, LNP-S, preservative free 08/30/2021 Pneumococcal conjugate 13 va lent (Prevnar 13, PCV13) 2mo and older 01/26/2015 Pneumococcal polysaccharide 23 valent (Pneumovax 23) 2yo and older 01/18/2011 Tdap Tetanus diptheria acell ular pertussis (Boostrix; Adacel) 7yo and older 01/26/2015 Surgical History Surgery Date Site/Laterality Comments TONSILLECTOMY PROCEDURE: HISTORICAL TONSILLECTOMY NEPHRECTOMY Left PROCEDURE: HISTORICAL NEPHRECTOMY Medical History Medical History Date Comments Obesity, unspecified DX:Obesity, unspecified Cellulitis and abscess of un specified site DX:Cellulitis and abscess of unspecified site Other and unspecified hyperlipidemia DX:Other and unspecified hyperlipidemia Esophageal reflux DX:Esophageal reflux Hypertrophy of prostate with out urinary obstruction and other lower urinary tract symptoms (LUTS) DX:Hypertrophy of prosta te without urinary obstruction and other lower urinary tract symptoms (LUTS) Osteoarthrosis, unspecified whether generalized or localized, lower leg 02/10/2006 DX:Osteoarthrosis, unspecified whether generalized or localized, lower leg; COMMENT: Right knee GI bleed DX:GI bleed Essential hypertension, benign 11/27/2005 D X:Essential hypertension, benign Bilateral leg edema 05/10/2021 DX:Bilateral leg edema History of CVA (cerebrovascu lar accident) 09/21/2023 DX:History of CVA (cerebrova scular accident); COMMENT: R vertebrel artery Social History Tobacco Use Types Packs/Day Years Used Date Smoking Tobacco: Former Smokeless Tobacco: Never Alcohol Use Standard Drinks/Week Comments Not Currently 0 (1 standard drink = 0.6 oz pur e alcohol) Housing Instability Answer Date Recorde d Are you worried that in the next 2 months you may not have stable housing? No 11/05/2024 Food Access & Nutrition Answer Date Rec orded Do you have access to a vari ety of food including fruits and vegetables? Yes 11/05/2024 Access to Healthcare Answer Date Record ed Within the last 3 months, ho w many times did you visit the emergency department for your medical care? 0 11/05/2024 Health Literacy Answer Date Recorded How often do you need to hav e someone help you when you read instructions, pamphlets, or other written material from your doctor or pharmacy? Never 11/05/2024 Caregiver: How often do you need to have someone help you when you read instructions, pamphlets, or other written material from your doctor or pharmacy? Not on file 11/05/2024 Financial Risk Answer Date Recorded How hard is it for you to pa y for the very basics like food, housing, medical care, and air conditioning / heating? Not very hard 11/05/2024 Transportation Answer Date Recorded Has the lack of transportati on kept you from meetings, work, or from getting things needed for daily living? No Has the lack of transportati on kept you from medical appointments or from getting medications? No 11/05/2024 Social Isolation Answer Date Recorded How often do you feel lonely or isolated from th ose around you? Never 11/05/2024 Food Risk Answer Date Recorded Within the past 12 months we worried whether our food would run out before we got money to buy more. Never true 11/05/2024 Within the past 12 months th e food we bought just didn't last and we didn't have money to get more. Never true 11/05/2024 Dependent Care Answer Date Recorded Do you need help finding or paying for care for your loved ones. For example, early childhood assistant or elderly care for an older adult? No 11/05/2024 Education Answer Date Recorded Do you think completing more education or training, like finishing a GED, going to college, or learning a trade, would be helpful for you? No 11/05/2024 Employment and Income Answer Date Recor ded During the last four weeks, have you been actively looking for work? No 11/05/2024 Living Situation Answer Date Recorded What is your living situation? 0 11/05/2024 Sex and Gender Information Value Date Recorded Sex Assigned at Not on file Legal Sex Male 7:26 PM EST Gender Identity Not on file Sexual Orientation Not on file Obstetrics History Last Filed Vital Signs Vital Sign Reading Time Taken Comments Blood Pressure 158/97 11/23/2024 1:42 PM EST Pulse 64 11/23/2024 1:42 PM EST Temperature 36.4 ??C (97.6 ??F) 11/05/2024 10:[address] Respiratory Rate 16 11/05/2024 10:48 AM EST Oxygen Saturation - - Inhaled Oxygen Concentration - - Weight 129 kg (284 lb 3.2 oz) 11/23/2024 1:42 PM EST Height 188 cm (6' 2 ) 11/23/2024 1:42 PM EST Body Mass Index 36.49 11/23/2024 1:42 PM EST Plan of Treatment Upcoming Encounters Date Type Department Care Team (Late st Contact Info) Description 03/03/2025 11:30 AM EDT Office Visit Vascular Surgery - [place] [address] [facility] [address] [place] [address] Madelin Hart PA [address] [facility] [address] [place] [address] 03/11/2025 1:00 PM EDT Office Visit Adult Medicine [facility] [address] [place] [address] Leona Hamilton MD [address] [place] [phone] 07/12/2025 9:55 AM EDT Office Visit [facility] [address] [facility] [address] [place] [address] Satish Salinas MD [address] [facility] [address] [place] [address] Health Maintenance Due Date Last Done Comments Zoster Vaccines (1 of 2) 1964 RSV Immunization Adult Patients (1 - 1-dose 75+ series) 2019 Medicare Annual Wellness Visit 08/24/2022 COVID-19 Vaccine ( season) 2024 08/29/2022, 08/30/2021, 12/27/2020 DTaP,Tdap,and Td Vaccines (3 - Td or Tdap) 01/26/2025 01/26/2015, 01/11/2012 Depression Screening 06/22/2025 06/22/2024 Hypertension/CHF/CAD Annual BMP Blood Test 06/22/2025 06/22/2024, 06/22/2024, 06/22/2024, Additional history exists Falls Risk Assessment 07/16/2025 07/16/2024 Social Influencers of Health Screening 11/05/2025 11/05/2024 Cholesterol Screening (Lipid Panel) 06/22/2029 06/22/2024, 06/22/2024 Pneumococcal Vaccine: 50+ Years Completed 01/26/2015, 01/18/2011 Influenza Vaccine Completed 06/22/2024, , 08/21/2022, Additional history exists HIB Vaccines Aged Out No longer eligi ble based on patient's age to complete this topic HPV Vaccines Aged Out No longer eligi ble based on patient's age to complete this topic Hepatitis A Vaccines Aged Out No long er eligible based on patient's age to complete this topic Hepatitis B Vaccines Aged Out No long er eligible based on patient's age to complete this topic IPV Vaccines Aged Out No longer eligi ble based on patient's age to complete this topic MMR Vaccines Aged Out No longer eligi ble based on patient's age to complete this topic Meningococcal ACWY Vaccine Aged Out N o longer eligible based on patient's age to complete this topic Meningococcal B Vaccine Aged Out No l onger eligible based on patient's age to complete this topic RSV Immunization Patients Under 20 months Aged Out No longer eligible based on patient's age to complete this topic Varicella Vaccines Aged Out No longer eligible based on patient's age to complete this topic Procedures Procedure Name Priority Date/Time Associated Diagnosis Comments VAS US DUPLEX LOWER EXT VENOUS INSUFFICIENCY BILATERAL Routine 01/05/2025 12:50 PM EDT Bilateral leg edema FALLS RISK ASSESSMENT Routine 07/16/2024 DEPRESSION SCREENING Routine 06/22/2024 ANNUAL BMP BLOOD TEST Routine 06/22/2024 LIPID PANEL Routine 06/22/2024 from Last 3 Months or Most Recently Relevant to Health Maintenance Results * Vascular US duplex lower extremity venous insufficiency bilateral (01/05/2025 12:50 PM EDT) Left fem mid reflux 583 ms CV VAS LAB Left GSK anirudh 0.55 cm CV VAS LAB Left GSDC anirudh 0.43 cm CV VAS LAB Left GSMT anirudh 0.68 cm CV VAS LAB Left GSPC anirudh 0.63 cm CV VAS LAB Left GSPT anirudh 0.77 cm CV VAS LAB Left pop reflux 900 ms CV VAS LAB Left SFJ Diameter 1.18 cm CV VAS LAB Left SSMC anirudh 0.29 cm CV VAS LAB Left SSPC anirudh 0.25 cm CV VAS LAB Right GSK anirudh 0.64 cm CV VAS LAB Right GSDC anirudh 0.55 cm CV VAS LAB Right GSMT anirudh 0.80 cm CV VAS LAB Right GSPC anirudh 0.83 cm CV VAS LAB Right GSPT anirudh 0.98 cm CV VAS LAB Right SFJ Diameter 1.08 cm CV VAS LAB Right SSMC anirudh 0.41 cm CV VAS LAB Right SSPC anirudh 0.38 cm CV VAS LAB Right SFJ Reflux Time 1,890 ms CV VAS LAB Right GSPT reflux 2,711 ms CV VAS LAB Right GSMT reflux 2,695 ms CV VAS LAB Right GSK reflux 3,078 ms CV VAS LAB Right GSPC reflux 3,017 ms CV VAS LAB Right GSDC reflux 850 ms CV VAS LAB Right perf 1 reflux 470 ms CV VAS LAB Right perf 1 anirudh 0.31 cm CV VAS LAB Left GSPT reflux 3,117 ms CV VAS LAB Left GSMT reflux 3,745 ms CV VAS LAB Left GSK reflux 3,022 ms CV VAS LAB Left GSPC reflux 2,545 ms CV VAS LAB Left GSDC reflux 1,194 ms CV VAS LAB Anatomical Region Laterality Modality Vascular, Abdomen Ultrasound Narrative 01/14/2025 11:47 AM EDT RIGHT: 1. There is no evidence of a DVT in the visualized veins of the right lower extremity 2. The SFJ, femoral vein, popliteal vein and SSV are competent 3. The GSV has clinically significant reflux as described below. ??The GSV's also has several branches with clinically significant reflux as described below. 4. ??The right peroneal veins were not well-visualized on the current study. LEFT: 1. ??There is no evidence of a DVT in the visualized veins of the left lower extremity. 2. The SFJ and SSV are competent 3. ??The GSV has clinically significant reflux as described below. ??The GSV also has several branches with clinically significant reflux is described below. 4. ??The mid femoral vein and popliteal vein have borderline significant reflux. 5. ??The left peroneal vein was not well-visualized on the current study. 6. ??There is evidence of an avascular structure in the left popliteal fossa measuring 5.13 cm x 1.78 cm x 4.03 cm which likely represents a Bakers cyst. Right Lower Venous No evidence of deep vein thrombosis in the common femoral, deep femoral, proximal femoral, mid femoral, distal femoral, popliteal, greater saphenous, small saphenous, and posterior tibial veins of the right leg. The vessels showed compressibility. Interrogation showed phasic and spontaneous Doppler signals. Peroneal veins are not visualized. Right Venous Insufficiency Duplex The exam was performed with the patient in reverse Trendelenburg. Refluxing right greater saphenous veins: 0.55cm diameter upper calf= 1830ms 0.67cm diameter upper calf= 1170ms Left Lower Venous No evidence of deep vein thrombosis in the common femoral, deep femoral, proximal femoral, mid femoral, distal femoral, popliteal, greater saphenous, small saphenous, and posterior tibial veins of the left leg. The vessels showed compressibility. Interrogation showed phasic and spontaneous Doppler signals. Peroneal veins were not well visualized. There is evidence of a Pacheco's cyst in the popliteal fossa measuring 5.13 x 1.78 x 4.03cm. Left Venous Insufficiency Duplex The exam was performed with the patient in reverse trendelenburg. Refluxing left greaters saphenous branches: 0.36cm diameter upper thigh= 1120ms 0.28cm diameter upper calf= 1890ms Sales Center Manager Details A terrazas scale, color and doppler analysis ultrasound was performed. During the study longitudinal and transverse views were obtained. Pulsed wave doppler was performed. Madelin LEONARD CV VASCULAR PROCEDURES Final R esult * Falls Risk Assessment (07/16/2024) [facility] Falls Risk Assessment abstracted Result [facility] HEALTH MAINTENANCE Final Result * Annual BMP Blood Test (06/22/2024) [facility] Annual BMP Blood Test abstracted Result [facility] Final Result * Depression Screening (06/22/2024) [facility] Depression Screening abstracted Result [facility] Final Result * Lipid panel (06/22/2024) LDL/HDL Ratio 3 0 - 4 Triglycerides 64 0 - 150 mg/dL Cholesterol 116 0 - 200 mg/dL HDL 47 >=40 mg/dL LDL Cholesterol 57 0 - 100 mg/dL Blood Venous blood specimen / Unknown us Historical Provider LAB BLOOD ORDERABLES April l Result from Last 3 Months or Most Recently Relevant to Health Maintenance [facility] Advance Directives Documents on File Type Date Recorded 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
== END 2025-01-26 13:49 | disposition home or self-care (01) ==
LOC: HO.MRI 13:48
PROVIDERS: PCP Internal Medicine; Visit Provider Urology
DX: C64.2 Malignant neoplasm of left kidney, except renal pelvis (principal)
CPT/HCPCS: 74183; A9585

== ENCOUNTER → 2025-01-26 14:10 | Outpatient (BNV) | payer MEDICARE, SELFPAY | PROVIDERS: PCP Internal Medicine; Visit Provider Radiology Diagnostic Radiology | DX: C64.9 Malignant neoplasm of unspecified kidney, except renal pelvis (principal) | CPT/HCPCS: 74183 ==

== ENCOUNTER 2025-02-02 10:31 | Outpatient (REF) | payer MEDICARE, SELFPAY ==
--- NOTE | ~2025-02-02 | XR_ITS ---
CLINICAL HISTORY: C64.2 - Malignant neoplasm of left kidney, except renal pelvis 2 view chest x-ray Comparison: CR/HI/SR - XR CHEST 2V - 12/22/23 11:15 EDT CR/SR - XR CHEST 1V - 08/20/22 14:01 EST Findings: Mild diffuse basilar predominant reticulonodular pulmonary opacity. Normal size heart. No acute fracture. IMPRESSION: Mild atypical pneumonia. This document has been electronically signed by: Juliette Aburto MD on 02/02/2025 15:58:13
--- OUTSIDE RECORDS SUMMARY | 2025-02-02 11:33 | XMS_ITS | Clinical Summary ---
Author Organization [facility] [address] [facility] Address [address] [place] [address] Phone Care Team Providers Care Cardiac Exercise Physiologist Name Role Phone Leona Hamilton MD Primary Care Prov ider Allergies Active Allergy Reactions Criticality Noted Date Comments Aspirin 11/15/2005 gi bleed Cephalexin Diarrhea,Rash 07/16/2024 Medications ferrous sulfate (IRON ORAL) 1 TABLET DAILY Active MAGNESIUM ORAL Take 1 Tablet by mouth every other day. 03/11/20 24 Active MULTIVITAMIN ORAL 1 qd Active clotrimazole (LOTRIMIN) 1 % cream Apply to affected areas (right foot) twice daily for 2 weeks 07/16/20 24 Active finasteride (PROSCAR) 5 mg tablet Take 5 mg by mouth daily. Active Lactobacillus rhamnosus GG 15 billion cell capsule, sprinkle Take 1 capsule by mouth 1 (one) time each day. 07/16/20 24 Active lisinopriL (PRINIVIL,ZESTRI L) 20 mg tablet Take 1 tablet (20 mg total) by mouth 1 (one) time each day. 07/23/20 24 Active silver sulfADIAZINE (SILVADENE, SSD) 1 % cream Apply to affected areas twice daily for 2 weeks 07/23/20 24 025 Active torsemide (DEMADEX) 10 mg tablet Take 1 tablet (10 mg total) by mouth 1 (one) time each day. 06/22/20 24 Active atorvastatin (LIPITOR) 40 mg tablet TAKE 1 TABLET BY MOUTH EVERY DAY 90 tablet 1 10/26/19 25 Active omeprazole (PriLOSEC) [address] capsule Take 1 capsule (40 mg total) by mouth 1 (one) time each day. 90 each 3 11/05/19 25 026 Active Banophen 25 mg capsule TAKE 1 CAPSULE BY MOUTH AT BEDTIME NEEDED FOR ITCHING. 90 capsule 1 11/17/19 25 Active Eliquis 5 mg tablet TAKE 1 TABLET BY MOUTH TWICE A DAY 180 tablet 02/01/20 25 Active metoprolol tartrate (LOPRESSOR) 25 mg tablet TAKE 1 TABLET BY MOUTH TWICE A DAY 180 tablet 3 02/02/20 25 Active metoprolol tartrate (LOPRESSOR) 25 mg tablet TAKE 1 TABLET BY MOUTH TWICE A DAY 180 tablet 1 09/13/20 24 025 Discontinued Eliquis 5 mg tablet TAKE 1 TABLET BY MOUTH TWICE A DAY 180 tablet 11/02/19 25 025 Discontinued Active Problems Problem Noted Date Diagnosed Date Class 2 severe obesity with serious comorbidity and body mass index (BMI) of 37.0 to 37.9 in adult ([facility] V24, [facility] V28) 08/25/2024 (HFpEF) heart failure with p reserved ejection fraction ([facility] V24, [facility] V28) 11/20/2023 Overview (08/25/2024): Last Assessment & [...] diet monitor his weight daily. Stroke (cerebrum) ([facility] V24, [facility] V28) Lymphedema 07/06/2021 Bilateral leg edema 05/10/2021 [...] metabolic panel; Future Renal cell cancer, left (CMS/HCC V24, CMS/HCC V2 8) 12/08/2017 Overview (08/25/2024): S/p nephrectomy by Dr. Camara Renal mass, left 08/22/2017 Overview (08/25/2024): Seeing Dr. Mike and Dr. Hercules-oncology, suspect renal cell CA Atrial fibrillation (CMS/HCC V24, CMS/HCC V28) 0 04/05/2017 Overview (08/25/2024): Chronic persistent [...] Description 01/05/2025 12:00 PM EDT Ancillary Procedure [facility] [address] [place] [address] Bilateral leg edema 12/03/2024 Telephone Vascular Surgery - [place] [address] [place] [address] Madelin Hart PA Forms/questionnaires (/) 11/23/2024 1:30 PM EST Consult Vascular Surgery - [place] [address] [place] [address] Madelin Hart PA Lymphedema (Primary Dx); Obesity (BMI 30-39.9); Bilateral leg edema 11/05/2024 11:00 AM EST Office Visit Adult Medicine [address] [phone] Leona Davis MD Primary hypertension (Primary Dx); Mixed hyperlipidemia; [...] care for your loved ones. For example, child and adolescent therapist or elderly care for an older adult? [...] AM EDT Office Visit Vascular Surgery - [place] [address] [facility] [address] [place] [address] Madelin Hart PA 300 [facility] [address] [place] [address] 03/11/2025 1:00 PM EDT Office Visit Adult Medicine [address] [phone] Leona Hamilton MD [address] [place] [phone] 07/12/2025 9:55 AM EDT Office Visit [facility] - [facility] [address] [facility] [address] [place] [address] Satish Salinas MD [address] [facility] [address] [place] [address] Health Maintenance Due Date Last Done Comments [...] thigh= 1120ms 0.28cm diameter upper calf= 1890ms Fitness Management Director Details A terrazas scale, color and doppler analysis ultrasound was performed. During the study longitudinal and transverse views were obtained. Pulsed wave doppler was performed. Madelin LEONARD CV VASCULAR PROCEDURES Final R esult * Falls Risk Assessment (07/16/2024) [facility] [place] Risk Assessment abstracted Historical Provider HEALTH MAINTENANCE Final Result * Annual BMP Blood Test (06/22/2024) [facility] Annual BMP Blood Test abstracted Historical Provider HEALTH MAINTENANCE Final Result * Depression Screening (06/22/2024) Depression Screening abstracted Historical Provider HEALTH MAINTENANCE Final Result * Lipid panel (06/22/2024) LDL/HDL Ratio 3 0 - 4 Triglycerides 64 0 - 150 mg/dL Cholesterol 116 0 - 200 mg/dL HDL 47 >=40 mg/dL LDL Cholesterol 57 0 - 100 mg/dL Blood Venous blood specimen / Unknown Historical Provider LAB BLOOD ORDERABLES April l Result from Last 3 Months or Most Recently Relevant to Health Maintenance Insurance MEDICARE [facility] Advance Directives Documents on File Type Date Recorded 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
== END 2025-02-02 10:32 | disposition home or self-care (01) ==
LOC: HO.XRAY 10:31
PROVIDERS: PCP Internal Medicine; Visit Provider Urology
DX: C64.2 Malignant neoplasm of left kidney, except renal pelvis (principal)
CPT/HCPCS: 71046

== ENCOUNTER → 2025-02-02 10:37 | Outpatient (BNV) | payer MEDICARE, SELFPAY | PROVIDERS: PCP Internal Medicine; Visit Provider Radiology Diagnostic Radiology | DX: J18.9 Pneumonia, unspecified organism (principal) | CPT/HCPCS: 71046 ==

== ENCOUNTER 2025-03-10 11:16 | Outpatient (AMB) | payer MEDICARE, SELFPAY ==
--- NOTE | 2025-03-10 11:18 | MHC.OFFVIS ---
Intake Visit Reasons: follow up/ xray Intake Note: Patient is present for X RAY F/U Urology Medication:FINASTERIDE Antibiotic Allergy:NONE Blood Thinner:WARFARIN Nursing Teacher Required: No Allergies aspirin (ASPIRIN) Adverse Reaction (Severe, Verified 03/10/25 11:20) GI BLEED HPI Comments Details: Shakir is a pleasant male. He is a patient of Dr. Haddad. He seen for the following urologic issues - renal cancer - lower urinary tract symptoms - on tamsulosin Yearly follow-up 7 yr f/u 02/13 renal MRI 1.5 cm T2 nodule right lower pole Suggest ultrasound surveillance Stroke Sep 2209/2023 On lasix for fluid retention Nocturia x2 Twelve month follow-up abdominal imaging and chest x-ray Continue surveillance - consider yearly labs and cross sectional imaging every 2 years starting at 5 yr post procedure Lower urinary tract symptoms Remains on finasteride Renal cancer. Nephrectomy 12/0718 Grade pT3a with neoadjuvant sutent Good renal function Continue with imaging surveillance They present for continued followup and management, left side, renal cancer. The renal mass was diagnosed during evaluation for, hematuria 07/08 in hospital. Imaging included 07/08 , a CT (computed tomography) scan of the abdomen/pelvis - , showing a solid mass, >5.9 cm in size, on the left (8cm), no brad enlargement 09/07 , a CT (computed tomography) scan of the abdomen/pelvis partial reduction on a solid mass. Improvement of inflammation. Minimal brad involvement.. Prior treatment(s) included 12/07 , nephrectomy. Staging of initial cancer T2, with no positive lymph nodes, without vena cava involvement, without metastasis - 07/08 CT chest - no nodules - 07/08 - Bone Scan negative 12/07 pT3aN0 - sutent pre and post op The diagnosis was renal cell carcinoma, Grade IV - extension into gerotas space, margin negative. Recent labs include 12/07 , a creatinine 0.88 03/09 C 1.05 01/08 Cr 1.09 stable, 07/10 1.2, 09/11 Cr 1.1, 02/10 1.0 Follow up imaging includes 03/09 , abdominal CT scan, chest xray, stable post intervention changes 09/08 , chest xray, renal US - NAD 01/08 CT imaging stable abdo/chest - 07/10 CT imaging chest stable, 08/11 chest x-ray and renal ultrasound normal, 02/09 - CT scan stable, 02/[address] normal - 08/13 CXR NAD - 06/14 5 yr imaging MRI - Status post left nephrectomy. No evidence of a right renal tumor or metastatic disease within the abdomen.* Large hiatal hernia Plan - - Recommended surveillance will include?clinical assessment, blood biochemistry, and chest x-ray every 6 months for 3 years then yearly. Abdominal CT recommended at 6, 12, 18, 24, 36, 60 months then every 2 years [facility] Medical History Chronic venous stasis dermatitis H/O renal cell cancer BPH (benign prostatic hyperplasia) Afib GERD (gastroesophageal reflux disease) Hyperlipemia Hypertension Renal cancer Persistent atrial fibrillation Surgical History History of nephrectomy, left Family History Father Colon cancer Social History Household Members: None Housing: House Are you a primary urgent care physician assistant to a significant other at home: No Do you presently have visiting nurse or 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 home services: 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 (pull 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) Alcohol intake: current Alcohol intake frequency: holidays/special occasions only Patient Tobacco Use Status: Never used Tobacco service: Yes Current occupational status: retired Review of Systems Const Denies chills and Denies fever(s) Card Reports no additional complaints and Denies syncope Resp Denies cough GI Denies abdominal pain and Denies heartburn Reports as per HPI and Denies change in libido Neuro Denies syncope Psych Denies change in libido Endo Denies change in libido Physical Exam Const General: cooperative, healthy appearing, comfortable and no acute distress Orientation/consciousness: patient oriented x3 HEENT Face and sinus: Yes normal facial exam Mouth: moist mucous membranes Neck Neck: Yes normal visual inspection, Yes full ROM and Yes trachea midline Chest Chest palpation & inspection: normal inspection of the chest Resp Effort & Inspection: normal respiratory effort, able to speak in complete sentences and no respiratory distress GI Inspection: Yes normal to inspection Back/Spine/Pelvis Cervical Spine: normal cervical lordosis Thoracic/Lumbar Spine: thoracic and lumbar spine normal to inspection Skin General skin exam: no rashes or lesions noted Neuro General: patient oriented x3, gait normal, tone normal and moves all extremities Extrem General: Yes normal to inspection and Yes capillary refill normal Assessment & Plan Assessment & Plan (1) Renal cyst: Code(s): N28.1 - Cyst of kidney, acquired Category: Medical Plan Six-month follow-up renal ultrasound Orders: Orders US renal BI 6 Months N28.1 - Cyst of kidney, acquired Patient Instructions: This note is constructed using voice recognition software. While every effort has been made to ensure accuracy control room operator errors may have been included. Imaging studies, laboratory and physical exam results were discussed and reviewed in detail. No major barriers to patient understanding were identified. An opportunity to ask questions regarding the treatment plan was provided. All questions were answered. The patient expressed understanding and agreement with the above treatment plan. The patient is aware they should contact our office by phone for worsening of their current condition or the appearance of new urologic symptoms. Compliance is encouraged with any medications and followup testing that is ordered. It is a privilege to participate in the urologic care of your patient. If you have any questions or concerns regarding treatment for the above conditions, or other urologic issues, please do not hesitate to contact me. The office telephone contact is [phone]. Sincerely, Dr Carlos Camara MD, [facility] - Urology Compassionate Specialist Care for the Genitourinary System Coding Level of Care Code Est Pt Level 4 (68182) Complex EM visit Add On G2211 Diagnoses Renal cyst N28.1
--- OUTSIDE RECORDS SUMMARY | 2025-03-10 12:46 | XMS_ITS | Clinical Summary ---
Author Organization [facility] [address] [facility] Address [address] [place] [address] Phone Care Team Providers Care Client Experience Administrator Name Role Phone Leona Hamilton MD Primary [...] for 2 weeks 07/23/20 24 025 Active atorvastatin (LIPITOR) 40 mg tablet TAKE [...] DAY 180 tablet 3 02/02/20 25 Active torsemide (DEMADEX) 10 mg tablet TAKE 1 TABLET BY MOUTH EVERY DAY 90 tablet 1 02/29/20 25 Active torsemide (DEMADEX) 10 mg tablet Take 1 tablet (10 mg total) by mouth 1 (one) time each day. 06/22/20 24 025 Discontinued Active Problems Problem Noted Date Diagnosed Date Class 2 severe obesity with serious comorbidity and body mass index (BMI) of 37.0 to 37.9 in adult ([facility] V24, [facility] V28) 08/25/2024 (HFpEF) heart failure with p reserved ejection fraction ([facility] V24, [facility] V28) 11/20/2023 Overview (08/25/2024): Last Assessment [...] diet monitor his weight daily. Stroke (cerebrum) ([facility] V24, [facility] V28) Lymphedema 07/06/2021 Bilateral leg edema [...] Encounters Date Type Department Care Team Description 03/03/2025 11:30 AM EDT Office Visit Vascular Surgery - [place] [address] [place] [phone] Anika Herrera, HORACIO Bilateral leg edema (Primary Dx); Lymphedema; History of venous stasis ulcer of lower extremity; Lymphorrhea; Venous stasis dermatitis of both lower extremities; Chronic venous hypertension (idiopathic) with inflammation of bilateral lower extremity 01/05/2025 12:00 PM EDT Ancillary Procedure [facility] [address] [place] [phone] Bilateral leg edema from Last 3 Months Immunizations Name Administration Dates Next Due Influenza trivalent, 0.5mL ( Fluad) 65yo and older 06/22/2024,07/08/2023,08/21/2022,10/09 Influenza trivalent, 0.5mL, preservative free (Fluarix; FluLaval; Fluzone) ages 6mo and older (Afluria) 3 years and older 06/30/2015 [employer] SARS-CoV-2 COVID-19, mRNA, LNP-S, preservative free 08/30/2021 [...] care for your loved ones. For example, children's entertainer or elderly care for an older adult? [...] Sign Reading Time Taken Comments Blood Pressure 152/79 03/03/2025 11:16 AM EDT Pulse 61 03/03/2025 11:16 AM EDT Temperature 36.4 C (97.6 F) 11/05/2024 10:48 AM EST Respiratory Rate 16 11/05/2024 10:48 AM EST Oxygen Saturation - - Inhaled Oxygen Concentration - - Weight 130 kg (287 lb) 03/03/2025 11:16 AM EDT Height 182.9 cm (6') 03/03/2025 11:16 AM EDT Body Mass Index 38.92 03/03/2025 11:16 AM EDT Plan of Treatment Upcoming Encounters Date Type Department Care Team (Late st Contact Info) Description 03/11/2025 1:00 PM EDT Office Visit Adult Medicine [address] [phone] Leona Hamilton MD [address] [place] [phone] 07/12/2025 9:55 AM EDT Office Visit [facility] - [facility] [address] [facility] [address] [place] [address] Satish Salinas MD [address] [place] [address] Health Maintenance Due Date Last Done Comments Zoster Vaccines (1 of 2) 1964 RSV Immunization Adult Patients (1 - 1-dose 75+ series) 2019 Medicare Annual Wellness Visit 08/24/2022 COVID-19 Vaccine ( - season) 2024 08/29/2022, 08/30/2021, 12/27/2020 DTaP,Tdap,and Td [...] has clinically significant reflux as described below. The GSV's also has several branches with clinically significant reflux as described below. 4. The right peroneal veins were not well-visualized on the current study. LEFT: 1. There is no evidence of a DVT in the visualized veins of the left lower extremity. 2. The SFJ and SSV are competent 3. The GSV has clinically significant reflux as described below. The GSV also has several branches with clinically significant reflux is described below. 4. The mid femoral vein and popliteal vein have borderline significant reflux. 5. The left peroneal vein was not well-visualized on the current study. 6. There is evidence of an avascular structure in [...] thigh= 1120ms 0.28cm diameter upper calf= 1890ms Net C Developer Details A terrazas scale, color and doppler analysis ultrasound was performed. During the study longitudinal and transverse views were obtained. Pulsed wave doppler was performed. Madelin LEONARD CV VASCULAR PROCEDURES Final R esult * Falls Risk Assessment (07/16/2024) [facility] Falls Risk Assessment abstracted Result [facility] Provider HEALTH MAINTENANCE Final Result * Annual BMP Blood Test (06/22/2024) [facility] Annual BMP Blood Test abstracted Result Count includes the [facility] HEALTH MAINTENANCE Final Result * Depression Screening (06/22/2024) [facility] Depression Screening abstracted Result [facility] Provider HEALTH [facility] Final Result * Lipid panel (06/22/2024) [facility] LDL/HDL Ratio 3 0 - 4 Triglycerides 64 0 - 150 mg/dL Cholesterol 116 0 - 200 mg/dL HDL 47 >=40 mg/dL LDL Cholesterol 57 0 - 100 mg/dL Blood Venous blood specimen / Unknown Result [facility] Provider LAB BLOOD ORDERABLES April l Result from Last 3 Months or Most Recently Relevant to Health Maintenance Insurance MEDICARE [facility] Advance Directives Documents on File Type Date Recorded Patient Hand Cooper Helper Expl anation Health Care Decision (hx) 09/25/2023 HE ALTH CARE PROXY Health Care Decision (hx) 09/25/2023 HE ALTH CARE PROXY Health Care Decision (hx) 09/25/2023 HE ALTH CARE PROXY Care Teams Client Experience Administrator Relationship Specialty Start Date End Date Leona Hamilton MD [address] [place] [address] [phone] PCP - General Internal Medicine 05/15/22
== END 2025-03-10 11:50 | disposition home or self-care (01) ==
LOC: HO.HUSH 11:16
PROVIDERS: PCP Internal Medicine; Visit Provider Urology
DX: N28.1 Cyst of kidney, acquired (principal)
CPT/HCPCS: 99214; G2211

== ENCOUNTER → 2025-03-10 11:16 | Outpatient (BNVA) | payer MEDICARE, SELFPAY | PROVIDERS: PCP Internal Medicine; Visit Provider Urology | DX: N28.1 Cyst of kidney, acquired (principal) | CPT/HCPCS: 99212 ==

== ENCOUNTER 2025-08-31 14:05 | Outpatient (REF) | payer MEDICARE, SELFPAY ==
--- OUTSIDE RECORDS SUMMARY | 2025-08-28 17:07 | XMS_ITS | Continuity of Care Document ---
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 Name Role Phone Maryellen Haddad MD, Leona Dubois Primary Care Physicia n [id number] Date(s): 08/28/25 - 08/28/[address] [address]- Discharge Disposition: A-D/C Home Attending Physician: Vincenzo Rodriguez MD Admitting Physician: Dragan Laura MD Referring Physician: Not on Staff, Referring MD Encounter Type: Disch IP Allergies, Adverse Reactions, Alerts Substance Criticality Severity Reaction Reaction Severity Status aspirin Active Functional Status Functional Status Assessment Assessment Assessment Component Result Effecti ve Date Lance scale total score 20 08/27/25 Functional Status Assessment Assessment Assessment Component Result Effecti ve Date Total Falls Risk Score 13 Functional Status Assessment Assessment Assessment Component Result Effecti ve Date Total score [AUDIT] 1 08/27/25 Functional Status Assessment Assessment Assessment Component Result Effecti ve Date Unspecifed Functional Status Assessment Skin abnormality typ e (observable entity) Unknown Etiology 08/27/25 Functional Status Assessment Assessment Assessment Component Result Effecti ve Date Unspecifed Functional Status Assessment Skin abnormality typ e (observable entity) Unknown Etiology 08/27/25 Functional Status Assessment Assessment Assessment Component Result Effecti ve Date Lance scale total score 17 08/27/25 Functional Status Assessment Assessment Assessment Component Result Effecti ve Date Unspecifed Functional Status Assessment Skin abnormality typ e (observable entity) Unknown Etiology 08/27/25 Functional Status Assessment Assessment Assessment Component Result Effecti ve Date Unspecifed Functional Status Assessment Skin abnormality typ e (observable entity) Unknown Etiology 08/27/25 Functional Status Assessment Assessment Assessment Component Result Effecti ve Date Total Falls Risk Score 19 Functional Status Assessment Assessment Assessment Component Result Effecti ve Disability status [CUBS] I'm Safe - I rarely have acute or chronic symptoms affecting housing, employment, social interactions, etc. 08/27/25 Are you deaf, or do you have serious difficulty hearing Yes 08/27/25 Are you blind, or do you have serious difficulty seeing, even when wearing glasses No 08/27/25 Do you have serious difficulty walking or climbing stairs Yes 08/27/25 Because of a physica l, mental, or emotional condition, do you have serious difficulty concentrating, remembering, or making decisions No 08/27/25 Because of a physica l, mental, or emotional condition, do you have difficulty doing errands alone such as visiting a physician's office or shopping No 08/27/25 Do you have difficul ty dressing or bathing No 08/27/25 Difficulty communica ting in usual language No 08/27/25 Difficulty Reading O r Writing No 08/27/25 Do you need any mandi tional assistance or accommodations during your visit No 08/27/25 Immunizations Given and Recorded Vaccine Date Status Refusal Reason influenza virus vaccine, inactivated 08/28/25 Give n tetanus-diphtheria toxoids (Td) 01/11/12 Given Medications apixaban Starter Pack 5 mg oral tablet = 5 mg, By Mouth, 2 times a day, # 60 tablet, 6 Refills, Maintenance, 10/23/23 10:38:00 AM EST, Tablet, Partial fill upon patient request if the prescription is for a schedule II opioid drug. Start Date: 10/23/23 Stop Date: 05/20/24 Status: Ordered Medication Dispense Status: Completed Quantity: 60.0 Unit: tablet Total Allowed Fills: 7 Fills Dispensed: 0 ASV EPAP 9 PS 3-15 ASV EPAP 9 PS 3-15, See Instructions, # 1 each, Refills 0, Tot. Refills 0, Maintenance, ASV EPAP 9 PS 3-15, use during sleep at night and with naps, 09/10/24 3:09:00 PM EST, Supply Start Date: 09/10/24 Status: Ordered Medication Dispense Status: Completed Quantity: 1.0 Unit: each Total Allowed Fills: 1 Fills Dispensed: 0 atorvastatin 40 mg oral tablet 1 tablet = 40 mg, By Mouth, Daily, # 30 tablet, 0 Refills, Maintenance, 09/25/23 10:09:00 AM EST, Tablet, Partial fill upon patient request if the prescription is for a schedule II opioid drug. Start Date: 09/25/23 Status: Ordered Medication Dispense Status: Completed Quantity: 30.0 Unit: tablet Total Allowed Fills: 1 Fills Dispensed: 0 Banophen 25 mg oral capsule 1 capsule = 25 mg, By Mouth, Daily at bedtime, PRN as needed for itching, # 30 capsule, 0 Refills, Maintenance, 09/23/23 7:25:00 AM EST, Capsule, Partial fill upon patient request if the prescription is for a schedule II opioid drug. Start Date: 09/23/23 Status: Ordered Medication Dispense Status: Completed Quantity: 30.0 Unit: capsule Total Allowed Fills: 1 Fills Dispensed: 0 finasteride 5 mg oral tablet 1 tablet = 5 mg, By Mouth, Daily, # 30 tablet, 0 Refills, Maintenance, 09/23/23 7:25:00 AM EST, Tablet, Partial fill upon patient request if the prescription is for a schedule II opioid drug. Start Date: 09/23/23 Status: Ordered Medication Dispense Status: Completed Quantity: 30.0 Unit: tablet Total Allowed Fills: 1 Fills Dispensed: 0 Mag-Ox 400 400 mg oral tablet 1 tablet = 400 mg, By Mouth, Daily, for 10 days, # 10 tablet, 0 Refills, Acute 09/06/25 12:05:00 PMEST, 08/27/25 12:05:00 PM EST, Tablet, [facility]/pharmacy #[id number], Partial fill upon patient request if the prescription is for a schedule II opioid drug., 183, cm, 08/27/25 11:09:00 EST, Height, 134.1, kg, 08/27/25 0:20:00 EST, Dry Weight Start Date: 08/27/25 Stop Date: 09/06/25 Status: Ordered Medication Dispense Status: Completed Quantity: 10.0 Unit: tablet Total Allowed Fills: 1 Fills Dispensed: 0 metoprolol 25 mg oral tablet 12.5 mg, 0.5, tablet, By Mouth, 2 times a day, # 30 tablet, Refills 1, Tot. Refills 1, Maintenance,08/28/25 10:28:00 AM EST, Route to Pharmacy Electronically, [facility]/pharmacy #[id number], Partial fill upon patient request if the prescription is for a schedule II opioid drug., 183, cm, 08/28/25 10:12:00 EST, Height, 134.1, kg, 08/27/25 0:20:00 EST, Dry Weight Start Date: 08/28/25 Status: Ordered Medication Dispense Status: Completed Quantity: 30.0 Unit: tablet Total Allowed Fills: 2 Fills Dispensed: 0 MiraLax oral powder for reconstitution = 17 Gm, By Mouth, Daily, for 30 days, dissolve in 4 to 8 oz of beverage if you have normal bowel movement hold it, # 510 Gm, 0 Refills, Acute 09/26/25 11:59:00 AM EST, 08/27/25 11:59:00 AM EST, REC Powder, [facility]/pharmacy #[id number], Partial fill upon patient request if the prescription is for a schedule II opioid drug., 17 Gm By Mouth Daily,x30 days,Instr:dissolve in 4 to 8 oz of beverage; if you have normal bowel movement hold it, 183, cm, 08/27/25 11:09:00 EST, Height, 134.1, kg, 08/27/25 0:20:00 EST,Dry Weight Start Date: 08/27/25 Stop Date: 09/26/25 Status: Ordered Medication Dispense Status: Completed Quantity: 510.0 Unit: g Total Allowed Fills: 1 Fills Dispensed: 0 omeprazole 40 mg oral enteric coated capsule 1 capsule = 40 mg, By Mouth, Daily, # 30 capsule, 0 Refills, Maintenance, 04/05/17 2:15:56 PM EDT, EC Capsule Start Date: 04/05/17 Status: Ordered Medication Dispense Status: Completed Quantity: 30.0 Unit: capsule Total Allowed Fills: 1 Fills Dispensed: 0 senna 187 mg oral tablet 1 tablet = 8.6 mg, By Mouth, Daily, PRN Other, for 30 days, for constipation you should keep the consistancy loose, # 30 tablet, 0 Refills, Acute 09/26/25 12:00:00 PM EST, 08/27/25 12:00:00 PM EST, Tablet, [facility]/pharmacy #[id number], Partial fill upon patient request if the prescription is for a schedule II opioid drug., 183, cm, 08/27/25 11:09:00 EST, Height, 134.1, kg, 08/27/25 0:20:00 EST, Dry Weight Start Date: 08/27/25 Stop Date: 09/26/25 Status: Ordered Medication Dispense Status: Completed Quantity: 30.0 Unit: tablet Total Allowed Fills: 1 Fills Dispensed: 0 torsemide 10 mg oral tablet TAKE 1 TABLET BY MOUTH EVERY DAY Start Date: 02/11/25 Status: Ordered Medication Dispense Status: Completed Total Allowed Fills: 1 Fills Dispensed: 0 Mental Status Mental Status Assessment Assessment Assessment Component Result Effecti ve Date Emely coma score total 15 08/28/25 Mental Status Assessment Assessment Assessment Component Result Effecti ve Date Weldon coma score total 15 08/26/25 Mental Status Assessment Assessment Assessment Component Result Effecti ve Date Emely coma score total 15 08/27/25 Problem List Condition Confirmation Course Effective Dates Status H ealth Status Informant Longstanding persistent atrial fibrillation Confirmed Active Atrial fibrillation Confirmed 04/05/17 Active BPH (benign prostatic hyperplasia) Confirmed Active BMI 37.0-37.9, adult Confirmed Active Central sleep apnea with Nomi-Gray respiration Confirmed Active Cerebrovascular accident Confirmed 11/13/23 Active GERD (gastroesophageal reflux disease) Confirmed Active Gastroesophageal reflux disease Confirmed 11/15/05 Active Heart failure with normal ejection fraction Confirmed 11/20/23 Active Hemiplegia of nondominant side as late effect of cerebrovascular disease Confirmed 10/08/23 Active Hyperlipidemia Confirmed Active Hypertension Confirmed Active Mixed sleep apnea Confirmed Active Obstructive sleep apnea Confirmed Active Renal cell carcinoma Confirmed 12/08/17 Active Severe obesity Confirmed Active Occlusion and stenosis of right vertebral artery Confirmed Active Vital Signs Most recent to oldest [Reference Range]: 1 2 3 Height 183 cm (08/28/25 10:12 AM) 183 cm (08/28/25 6:37 AM) 183 cm (08/28/25 4:04 AM) Weight 134.1 kg (08/27/25 12:20 AM) 134.1 kg (08/26/25 11:51 PM) Oxygen Saturation [94-100 %] 100 % (08/28/25 10:12 AM) 95 % (08/28/25 6:37 AM) 96 % (08/28/25 4:56 AM) Pulse Rate [55-90 bpm] 64 bpm (08/28/25 10:12 AM) 57 bpm (08/28/25 6:37 AM) 58 bpm (08/28/25 4:04 AM) Body Mass Index [18.5-24.99 kg/m2] 40.04 kg/m2 *H* (08/27/25 12:20 AM) Blood Pressure [90-138/55-84 mm Hg] 118/55mm Hg (08/28/25 10:12 AM) 127/57mm Hg (08/28/25 6:37 AM) 130/96mm Hg (08/28/25 4:04 AM) Respiratory Rate [16-30 br/min] 17 br/min (08/28/25 10:12 AM) 16 br/min (08/28/25 6:37 AM) 20 br/min (08/28/25 4:04 AM) Temperature [96.8-100.4 DegF] 97.6 DegF (08/28/25 10:12 AM) 97.8 DegF (08/28/25 6:37 AM) 98.2 DegF (08/28/25 4:04 AM) Mode of Delivery (Oxygen) Room air (08/28/25 10:12 AM) Room air (08/28/25 6:37 AM) Room air (08/28/25 4:04 AM) Blood pressure sites Arm, left (08/28/25 10:12 AM) Arm, left (08/28/25 6:37 AM) Arm, left (08/28/25 4:04 AM) Temperature Route Oral (08/28/25 10:12 AM) Oral (08/28/25 6:37 AM) Axillary (08/28/25 4:04 AM) Dry Weight 134.1 kg (08/27/25 12:20 AM) Weight Obtained Via Bed scale (08/27/25 12:20 AM) Dry Weight Obtained Via Bed scale (08/27/25 12:20 AM) Social History Social History Type Response Smoking Status Never smoker entered on: 04/05/17 Sex Sex Representation Male (finding) Status Not Social Determinants of Health Assessment Assessment Assessment Component Result Effecti ve Date Unspecifed Social Determinants of Health Assessment Are you worried abou t losing your housing [PRAPARE] No 08/27/25 Housing status I have housing 08/27/25 Have you or any fami ly members you live with been unable to get any of the following when it was really needed in past 1 year [PRAPARE] None 08/27/25 How often do you see or talk to people that you care about and feel close to [PRAPARE] 1 or 2 times a week 08/27/25 Has lack of transpor tation kept you from medical appointments, meetings, work, or from getting things needed for daily living No 08/27/25 Within the last year , have you been afraid of your partner or ex-partner I have not had a partner in the past year 08/27/25 Do you feel physical ly and emotionally safe where you currently live [PRAPARE] Yes 08/27/25 Admission evaluation note * Donte Andre MD: MODIFY, PERFORM Event Display: Admission Note Authored Date: [id number] Patient: ??CELESTE BRIGGS ? Age:??80 Years?Sex:??Male?:??1945?LOC:??[facility]?? Chief Complaint/Reason for Consultation Rectal bleeding History of Present Illness The patient is a 80 years old male with past medical history of A-fib on Eliquis, hypertension, hyperlipidemia, BPH,??renal cancer status post nephrectomy??presented to ER with a chief complaint of rectal bleeding. ? The patient reported that??his bowel movements are not??regular and??sometimes he uses stool softeners??but reported that for the last 5 days, he did not have any bowel movement??but passing flatus. ??The patient stated that he has been??straining hard for bowel movement??and yesterday he noticed??moderate amount of blood??when he wiped??his rectal area. ??The patient reported that he had??another episode of rectal bleeding??only on wiping??today and therefore decided come to the ER ?? The patient reported that he did not notice any??blood in the toilet??and also reports that he does have a history of small??intermittent bleeding in the past.?? The patient denying any abdominal pain, nausea, vomiting, fever, chills Objective ? Vital Signs?? Temperature: 97.8 DegF (08/26/25 19:44:00) Temperature Route: Oral (08/26/25 19:44:00) Pulse Rate:??53 bpm??Low (08/26/25 19:44:00) Respiratory Rate: 18 br/min (08/26/25 19:44:00) Systolic Blood Pressure: 128 mm Hg (08/26/25 19:44:00) Diastolic Blood Pressure: 63 mm Hg (08/26/25 19:44:00) Blood pressure sites: Arm, left (08/26/25 19:44:00) Mean Arterial Pressure: 85 mm Hg (08/26/25 19:44:00) Pulse Pressure: 65 mm Hg (08/26/25 19:44:00) Oxygen Saturation: 95 % (08/26/25 19:44:00) Mode of Delivery (Oxygen): Room air (08/26/25 19:44:00) Early Warning Score: 7 (08/26/25 21:19:20) ? Physical Exam Constitutional: Alert, in no acute distress. Head: Normocephalic. ?? Eyes: Pupils are equal, round and reactive to light. Extraocular muscles intact. No pallor or scleral icterus ?? Ear, Nose and Throat: mucous membranes moist. Ears and nose - no obvious deformities. Trachea midline. ?? Neck: Supple, Full range of motion.No JVD or bruits. Respiratory:??Clear to auscultation. No wheezing or rhonchi.??No use of accessory muscles. No tactile fremitus.?? Cardiovascular:??PMI not visible. S1 S2 regular. No murmurs, rubs or gallops. Gastrointestinal:??Abdomen soft, non-tender, distended. Normal bowel sounds. No pulsatile mass. No hepatosplenomegaly. Genitourinary:??No costovertebral angle tenderness. Extremities: 1+??lower extremity pitting edema. No cyanosis or clubbing. Neurologic:??AAOx3, Cranial nerves II-XII grossly intact. Speech normal, no facial droop. No focal neurological deficits. Moves all extremities spontaneously. Sensation intact bilaterally.??Flexor plantar response Skin:??Chronic venous stasis changes in??bilateral lower extremities Musculoskeletal:??No gross deformities on inspection. Heme/Lymphatics:??Palpation of neck reveals no swelling or tenderness of neck nodes.?? Psychiatric: Normal mood and affect. Assessment/Plan Diagnoses 1. ??Rectal bleeding ??(K62.5) 2. ??Constipation in male ??(K59.00) 3. ??Chronic a-fib ??(I48.20) 4. ??History of CVA (cerebrovascular accident) ??(Z86.73) 5. ??Chronic diastolic congestive heart failure ??(I50.32) 6. ??HLD (hyperlipidemia) ??(E78.5) 7. ??BPH (benign prostatic hyperplasia) ??(N40.0) 8. ??EDWARD (obstructive sleep apnea) ??(G47.33) 9. ??H/O renal cell cancer ??(Z85.528) ?? Assessment:??The patient is 80 years old male who is admitted rectal bleeding ?? Rectal bleeding (K62.5):??Etiology: Likely straining due to constipation and hemorrhoids?? Patient reports he??has intermittent constipation and uses stool softeners, last bowel meant was about 5 days ago??and has been straining??for bowel movement The patient noticed??rectal bleeding??on??wiping the rectal area but??did not notice any blood in the toilet On physical exam,??no abdomen tenderness As per ER per the note, rectal exam??did not reveal any??active bleeding ??Labs showed hemoglobin 11.7 Patient is on Eliquis at home that we will hold for now Will start the patient on bowel regime for constipation Will trend hemoglobin Currently holding GI consult as patient active bleeding is in the setting of hemorrhoids and constipation However, if patient has significant drop in hemoglobin or continues rectal bleeding, will consult GI ?? Constipation in male (K59.00):??Started patient on??bowel regime including MiraLAX and Senokot ?? Chronic a-fib (I48.20):??Resume home meds metoprolol holding Eliquis for now in the setting of rectal bleeding ?? History of CVA (cerebrovascular accident) (Z86.73):??Resume home medication Lipitor but holding Eliquis ?? Chronic diastolic congestive heart failure (I50.32):??Resume home medicine torsemide 10 mg daily ?? HLD (hyperlipidemia) (E78.5):??Resume home medication Lipitor ?? BPH (benign prostatic hyperplasia) (N40.0):??Resume home medicine finasteride ?? EDWARD (obstructive sleep apnea) (G47.33):??Ordered CPAP ?? H/O renal cell cancer (Z85.528):??Status post??nephrectomy Continue outpatient follow up??with??urology ?? VTE Prophylaxis:??SCDs for now ?? Discharge Planning:??Pending clinical course ?? Ongoing Medical Necessity:??Rectal bleeding, constipation ?? Code Status:??Full code ?Order Code Status:??Code Status Ordered ? Date of service: August 26, 2025 Histories Allergies Allergies ?(Active and Proposed Allergies Only) aspirin? (Severity: Unknown severity, Onset: Unknown) ? Past Medical History/Problem List Active Problems(17) Atrial fibrillation BMI 37.0-37.9, adult BPH (benign prostatic hyperplasia) Central sleep apnea with Nomi-Gray respiration Cerebrovascular accident Gastroesophageal reflux disease GERD (gastroesophageal reflux disease) Heart failure with normal ejection fraction Hemiplegia of nondominant side as late effect of cerebrovascular disease Hyperlipidemia Hypertension Longstanding persistent atrial fibrillation Mixed sleep apnea Obstructive sleep apnea Occlusion and stenosis of right vertebral artery Renal cell carcinoma Severe obesity ? Past Surgical History No surgery history documented. ? Social History Tobacco Details:??Never smoker ? Family History No Family History documented. ? Medications Home Medications apixaban (apixaban Starter Pack 5 mg oral tablet)??5 Milligram By Mouth 2 times a day for 30 Days apixaban (apixaban Starter Pack 5 mg oral tablet)??1 tab(s) 5 Milligram By Mouth 2 times a day for 30 Days Atorvastatin (atorvastatin 40 mg oral tablet)??1 tab(s) 40 Milligram By Mouth Daily DiphenhydrAMINE (Banophen 25 mg oral capsule)??1 capsule 25 Milligram By Mouth Daily at bedtime as needed as needed for itching Durable Medical Equipment (ASV EPAP 9 PS 3-15)??See Instructions ASV EPAP 9 PS 3-15, use during sleep at night and with naps Finasteride (finasteride 5 mg oral tablet)??1 tab(s) 5 Milligram By Mouth Daily Indapamide (indapamide 2.5 mg oral tablet)??2 tab(s) 5 Milligram By Mouth Daily in AM Lisinopril (lisinopril 40 mg oral tablet)??1 tab(s) 40 Milligram By Mouth Daily Metoprolol (metoprolol 25 mg oral tablet)??25 Milligram 1 tablet By Mouth 2 times a day Omeprazole (omeprazole 40 mg oral enteric coated capsule)??1 capsule 40 Milligram By Mouth Daily torsemide (torsemide 10 mg oral tablet)??TAKE 1 TABLET BY MOUTH EVERY DAY ? Results Recent Labs BLOOD COUNT & DIFF WBC 4.1 k/mm3 ()?? 08/26/2025 19:06 RBC 3.36 m/mm3 (Low)?? 08/26/2025 19:06 Hgb 11.7 Gm/dL (Low)?? 08/26/2025 19:06 Hct 35.2 % (Low)?? 08/26/2025 19:06 MCV 104.8 femtoliters (High)?? 08/26/2025 19:06 MCH 34.8 pg (High)?? 08/26/2025 19:06 MCHC 33.2 Gm/dL ()?? 08/26/2025 19:06 Platelet Count 135 k/mm3 (Low)?? 08/26/2025 19:06 RDW-SD 59.2 femtoliters (High)?? 08/26/2025 19:06 MPV 10.1 femtoliters ()?? 08/26/2025 19:06 Nucleated RBC (Automated) 0.0 #/100 WBC'S ()?? 08/26/2025 19:06 Abs. NRBC 0.0 k/mm3 ()?? 08/26/2025 19:06 Abs. Neut 3.1 k/mm3 ()?? 08/26/2025 19:06 Abs. Lymph 0.5 k/mm3 (Low)?? 08/26/2025 19:06 Abs. Steele 0.4 k/mm3 ()?? 08/26/2025 19:06 Abs. Eo 0.1 k/mm3 ()?? 08/26/2025 19:06 Abs. Baso 0.0 k/mm3 ()?? 08/26/2025 19:06 Neut % 75.2 % ()?? 08/26/2025 19:06 Lymph % 11.2 % (Low)?? 08/26/2025 19:06 Steele % 10.5 % ()?? 08/26/2025 19:06 Eos % 1.9 % ()?? 08/26/2025 19:06 Baso % 1.0 % ()?? 08/26/2025 19:06 Imm Gran 0.2 % ()?? 08/26/2025 19:06 Abs. Imm Gran 0.0 k/mm3 ()?? 08/26/2025 19:06 ?? CHEM GENERAL Sodium 141 mmol/L ()?? 08/26/2025 19:06 Potassium 4.4 mmol/L ()?? 08/26/2025 19:06 Chloride 105 mmol/L ()?? 08/26/2025 19:06 Bicarbonate Level 22 mmol/L ()?? 08/26/2025 19:06 Anion Gap 14 mmol/L ()?? 08/26/2025 19:06 Glucose Level 109 mg/dL (High)?? 08/26/2025 19:06 BUN 20 mg/dL ()?? 08/26/2025 19:06 Creatinine-Blood 0.98 mg/dL ()?? 08/26/2025 19:06 Estimated GFR Creatinine 77 ML/MIN/1.73 M2 ()?? 08/26/2025 19:06 Calcium 9.1 mg/dL ()?? 08/26/2025 19:06 Protein, Total 6.2 Gm/dL ()?? 08/26/2025 19:06 Albumin 3.7 Gm/dL ()?? 08/26/2025 19:06 AG Ratio 1.5 ()?? 08/26/2025 19:06 Alkaline Phosphatase 147 units/L (High)?? 08/26/2025 19:06 AST (SGOT) 31 units/L ()?? 08/26/2025 19:06 ALT (SGPT) 12 units/L ()?? 08/26/2025 19:06 Bilirubin, Total 1.3 mg/dL (High)?? 08/26/2025 19:06 ?? COAG INR 1.4 (High)?? 08/26/2025 19:06 Protime (PT) 14.3 seconds (High)?? 08/26/2025 19:06 APTT 30.1 seconds ()?? 08/26/2025 19:06 ? Coagulation Profile APTT: 30.1 seconds (19:06) INR:??1.4??High (19:06) Protime (PT):??14.3 seconds??High (19:06) ? Electronically Signed on 08/26/25 10:39 PM Donte Andre MD Electronically Signed on 08/27/25 01:54 AM Donte Andre MD EKG study * Event Display: ECG 12-Lead Authored Date: Please click on pdf link to open report * Event Display: ECG 12-Lead Authored Date: Ventricular Rate: 61 BPM Atrial Rate: 79 BPM QRS Duration: 100 ms Q-T Interval: 408 ms QTC Calculation(Bazett): 410 ms R [place]: -58 degrees T [place]: -61 degrees Atrial fibrillation Left axis deviation Pulmonary disease pattern Nonspecific ST and T wave abnormality Abnormal ECG When compared with ECG of 05-Apr-2017 10:40, Vent. rate has decreased by 44 bpm Nonspecific T wave abnormality, worse in Inferior leads T wave inversion now evident in Anterior leads Confirmed by Moris Marlow ([id number]) on 08/28/2025 7:00:54 AM [place]: Moris Marlow * Event Display: EKG Authored Date: * Event Display: EKG Authored Date: Procedure * Event Display: Cardiac Rhythm Strips Authored Date: Hospital Progress note * Paola Reaves: PERFORM Event Display: Progress Note Hospital Authored Date: Patient: ??CELESTE BRIGGS ? Age:??80 Years?Sex:??Male?:??1945?LOC:??[facility]?? Notified by RN around 0300 patient with multiple back to pack pauses of 2.0 seconds and then one pause of 3.03 seconds. Asymptomatic. Denies chest pain, shortness of breath or dizziness. VSS. Occurring at rest. ECG without ischemic changes. Discussed with cardiology, recommendation to hold metoprolol this morning and consider titrating metoprolol down. RN notified of plan. Sign out provided to day attending. Electronically Signed on 08/28/25 09:07 AM Paola Reaves * Vincenzo Rodriguez MD: PERFORM Event Display: Progress Note Hospital Authored Date: Patient: ??CELESTE BRIGGS ? Age:??80 Years?Sex:??Male?:??1945?LOC:??[facility]?? Subjective I saw and examined patient multiple times in the day Initially I was planning to discharge him??but??he developed diarrhea and moving his bowels at least 3 times,??some??fresh blood coming out of rectum after??passing the stool. Will monitor??CBC, he is on Eliquis He develops melena??will call GI Review of Systems Complete review of system negative except mentioned above Objective Vital Signs?? Temperature: 97.5 DegF (08/27/25 11:09:00) Temperature Route: Oral (08/27/25 11:09:00) Pulse Rate: 59 bpm (08/27/25 11:09:00) Respiratory Rate: 17 br/min (08/27/25 11:09:00) Systolic Blood Pressure: 127 mm Hg (08/27/25:09:00) Diastolic Blood Pressure: 69 mm Hg (08/27/25:09:00) Blood pressure sites: Arm, right (08/27/25:09:00) Mean Arterial Pressure: 88 mm Hg (08/27/25:09:00) Pulse Pressure: 58 mm Hg (08/27/25:09:) Oxygen Saturation: 96 % (08/27/25:09:) Mode of Delivery (Oxygen): Room air (08/27/25:09:00) Early Warning Score: 5 (08/27/25 11:10:04) ? Intake/Output? No Data Available ? Physical Exam Constitutional: Alert, in no acute distress. Head: Normocephalic. Eyes: Pupils are equal, round and reactive to light. Extraocular muscles intact. No pallor or scleral icterus Ear, Nose and Throat: mucous membranes moist. Ears and nose - no obvious deformities. Trachea midline. Neck: Supple, Full range of motion.No JVD or bruits. Respiratory:??Clear to auscultation. No wheezing or rhonchi.??No use of accessory muscles. No tactile fremitus.?? Cardiovascular:??PMI not visible. S1 S2 regular. No murmurs, rubs or gallops. Gastrointestinal:??Abdomen soft, non-tender, distended. Normal bowel sounds. No pulsatile mass. No hepatosplenomegaly. Genitourinary:??No costovertebral angle tenderness. Extremities: 1+??lower extremity pitting edema and chronic venous stasis changes.?No cyanosis orclubbing. Neurologic:??AAOx3, Cranial nerves II-XII grossly intact. Speech normal, no facial droop. No focal neurological deficits. Moves all extremities spontaneously. Sensation intact bilaterally.??Flexor plantar response Skin:??Chronic venous stasis changes in??bilateral lower extremities Musculoskeletal:??No gross deformities on inspection. Heme/Lymphatics:??Palpation of neck reveals no swelling or tenderness of neck nodes.?? Psychiatric: Normal mood and affect. _ Home Medications apixaban (apixaban Starter Pack 5 mg oral tablet)??5 Milligram By Mouth 2 times a day for 30 Days Atorvastatin (atorvastatin 40 mg oral tablet)??1 tab(s) 40 Milligram By Mouth Daily DiphenhydrAMINE (Banophen 25 mg oral capsule)??1 capsule 25 Milligram By Mouth Daily at bedtime as needed as needed for itching Durable Medical Equipment (ASV EPAP 9 PS 3-15)??See Instructions ASV EPAP 9 PS 3-15, use during sleep at night and with naps Finasteride (finasteride 5 mg oral tablet)??1 tab(s) 5 Milligram By Mouth Daily Indapamide (indapamide 2.5 mg oral tablet)??2 tab(s) 5 Milligram By Mouth Daily in AM Lisinopril (lisinopril 40 mg oral tablet)??1 tab(s) 40 Milligram By Mouth Daily Magnesium Oxide (Mag-Ox 400 400 mg oral tablet)??1 tab(s) 400 Milligram By Mouth Daily for 10 Days Metoprolol (metoprolol 25 mg oral tablet)??25 Milligram 1 tablet By Mouth 2 times a day Omeprazole (omeprazole 40 mg oral enteric coated capsule)??1 capsule 40 Milligram By Mouth Daily Polyethylene Glycol 3350 (MiraLax oral powder for reconstitution)??17 gram By Mouth Daily for 30 Days dissolve in 4 to 8 oz of beverageif you have normal bowel movement hold it Senna (senna 187 mg oral tablet)??1 tab(s) 8.6 Milligram By Mouth Daily as needed Other for 30 Daysfor constipation you should keep the consistancy ??loose torsemide (torsemide 10 mg oral tablet)??TAKE 1 TABLET BY MOUTH EVERY DAY ? Inpatient Medications Medications (15) Active SCHEDULED: (8) Atorvastatin 40 mg Tablet (atorvastatin 40 mg oral tablet) ??40 mg, By Mouth, Daily Finasteride 5 mg Tablet (finasteride 5 mg oral tablet) ??5 mg, By Mouth, Daily Fluzone Trivalent High Dose (>65yr) Inj 0.5 mL (Influenza, Trivalent High Dose Vaccine (Fluzone High Dose)) ??0.5 mL, Intramuscular, Once Magnesium Sulfate 2 Gm /50 mL (Magnesium Sulfate IVPB) ??2 Gm 50 mL, IVPB, Once Metoprolol 25mg Tablet (metoprolol 25 mg oral tablet) ??25 mg, By Mouth, 2 times a day NaCl 0.9% Flush 3ml (NaCL 0.9% Flush) ??3 mL, IV Push, Every 8 hours Potassium Chloride 10mEq ER Tablet (potassium chloride 10 mEq oral tablet, extended release) ??20 mEq, By Mouth, Once Torsemide 20 mg tablet (torsemide 20 mg oral tablet) ??10 mg 0.5 tablet, By Mouth, Daily CONTINUOUS: (0) PRN: (7) Acetaminophen 325 mg Tablet (Acetaminophen Tablet) ??650 mg, By Mouth, Every 4 hours Dextromethorphan-Guaifenesin 20 mg-200 mg/10 mL Liqu UD (Robitussin DM Liquid) ??10 mL, By Mouth, Every 4 hours Melatonin 3 mg Tablet (Melatonin Tablet) ??3 mg, By Mouth, Daily at bedtime NaCl 0.9% Flush 3ml (NaCL 0.9% Flush) ??3 mL, IV Push, Every 8 hours Polyethylene Glycol 17 Gm Powder (MiraLax Powder) ??17 Gm 1 pack/packet, By Mouth, Daily Senna Tablet (Senokot Tablet) ??8.6 mg 1 tablet, By Mouth, Daily Simethicone 80 mg Chewable Tablet (Simethicone Tablet) ??80 mg, Chew, 3 times a day ? Results Recent Labs BLOOD COUNT & DIFF WBC 4.1 k/mm3 ()?? 08/27/2025 03:20 RBC 3.34 m/mm3 (Low)?? 08/27/2025 03:20 Hgb 11.4 Gm/dL (Low)?? 08/27/2025 03:20 Hct 35.1 % (Low)?? 08/27/2025 03:20 MCV 105.1 femtoliters (High)?? 08/27/2025 03:20 MCH 34.1 pg (High)?? 08/27/2025 03:20 MCHC 32.5 Gm/dL (Low)?? 08/27/2025 03:20 Platelet Count 139 k/mm3 (Low)?? 08/27/2025 03:20 RDW-SD 59.5 femtoliters (High)?? 08/27/2025 03:20 MPV 10.2 femtoliters ()?? 08/27/2025 03:20 Nucleated RBC (Automated) 0.0 #/100 WBC'S ()?? 08/27/2025 03:20 Abs. NRBC 0.0 k/mm3 ()?? 08/27/2025 03:20 Abs. Neut 3.1 k/mm3 ()?? 08/26/2025 19:06 Abs. Lymph 0.5 k/mm3 (Low)?? 08/26/2025 19:06 Abs. Steele 0.4 k/mm3 ()?? 08/26/2025 19:06 Abs. Eo 0.1 k/mm3 ()?? 08/26/2025 19:06 Abs. Baso 0.0 k/mm3 ()?? 08/26/2025 19:06 Neut % 75.2 % ()?? 08/26/2025 19:06 Lymph % 11.2 % (Low)?? 08/26/2025 19:06 Steele % 10.5 % ()?? 08/26/2025 19:06 Eos % 1.9 % ()?? 08/26/2025 19:06 Baso % 1.0 % ()?? 08/26/2025 19:06 Imm Gran 0.2 % ()?? 08/26/2025 19:06 Abs. Imm Gran 0.0 k/mm3 ()?? 08/26/2025 19:06 ?? CHEM GENERAL Sodium 143 mmol/L ()?? 08/27/2025 03:23 Potassium 3.5 mmol/L (Low)?? 08/27/2025 03:23 Chloride 104 mmol/L ()?? 08/27/2025 03:23 Bicarbonate Level 21 mmol/L (Low)?? 08/27/2025 03:23 Anion Gap 18 mmol/L (High)?? 08/27/2025 03:23 Glucose Level 94 mg/dL ()?? 08/27/2025 03:23 BUN 18 mg/dL ()?? 08/27/2025 03:23 Creatinine-Blood 0.92 mg/dL ()?? 08/27/2025 03:23 Estimated GFR Creatinine 84 ML/MIN/1.73 M2 ()?? 08/27/2025 03:23 Calcium 9.1 mg/dL ()?? 08/27/2025 03:23 Magnesium 1.4 mg/dL (Low)?? 08/27/2025 03:23 Protein, Total 6.2 Gm/dL ()?? 08/26/2025 19:06 Albumin 3.7 Gm/dL ()?? 08/26/2025 19:06 AG Ratio 1.5 ()?? 08/26/2025 19:06 Alkaline Phosphatase 147 units/L (High)?? 08/26/2025 19:06 AST (SGOT) 31 units/L ()?? 08/26/2025 19:06 ALT (SGPT) 12 units/L ()?? 08/26/2025 19:06 Bilirubin, Total 1.3 mg/dL (High)?? 08/26/2025 19:06 ?? COAG INR 1.4 (High)?? 08/27/2025 03:20 Protime (PT) 14.1 seconds (High)?? 08/27/2025 03:20 APTT 30.1 seconds ()?? 08/26/2025 19:06 ?? URINE OTHER Est Creatinine Clearance 69.22 mL/min ()?? 08/27/2025 04:26 ? Blood Gases?? No qualifying data available. ? Assessment/Plan ??The patient is a 80 years old male with past medical history of A-fib on Eliquis, hypertension, hyperlipidemia, BPH,??renal cancer status post nephrectomy??presented to ER with a chief complaint ofpainless ??rectal bleeding after pushing too hard to move his bowel. he received bowel regimen and he is now having diarrhea and accidents. I stephie monitor him 1 more days of diarrhea and Rectal bleeding ? 1. ??Rectal bleeding ??(K62.5) 2. ??Constipation in male ??(K59.00) 3. ??Chronic a-fib ??(I48.20) 4. ??History of CVA (cerebrovascular accident) ??(Z86.73) 5. ??Chronic diastolic congestive heart failure ??(I50.32) 6. ??HLD (hyperlipidemia) ??(E78.5) 7. ??BPH (benign prostatic hyperplasia) ??(N40.0) 8. ??EDWARD (obstructive sleep apnea) ??(G47.33) 9. ??H/O renal cell cancer ??(Z85.528) ?? Rectal bleeding (K62.5):??Etiology: Likely straining due to constipation and hemorrhoids?? Patient reports he??has intermittent constipation and uses stool softeners, last bowel meant was about 5 days ago??and has been straining??for bowel movement The patient noticed??rectal bleeding??on??wiping the rectal area but??did not notice any blood in the toilet On physical exam,??no abdomen tenderness As per ER per the note, rectal exam??did not reveal any??active bleeding Labs showed hemoglobin 11.7 which is stabel Patient is on Eliquis at home , will resume and monitor Started on bowel regimen which caused expulsive diarrhea , Hold BR medications for now Will trend hemoglobin Currently holding GI consult as patient active bleeding is in the setting of hemorrhoids and constipation However, if patient has significant drop in hemoglobin or continues rectal bleeding, will consult GI ?? Constipation in male (K59.00):??hold ??bowel regime including MiraLAX and Senokot, had few loose bowel movent with accidents ?? Chronic a-fib (I48.20):??Resume home meds metoprolol resume Eliquis? History of CVA (cerebrovascular accident) (Z86.73):??Resume home medication Lipitor but?? Eliquis ?? Chronic diastolic congestive heart failure (I50.32):??Resume home medicine torsemide 10 mg daily ?? HLD (hyperlipidemia) (E78.5):??Resume home medication Lipitor ?? BPH (benign prostatic hyperplasia) (N40.0):??Resume home medicine finasteride ?? EDWARD (obstructive sleep apnea) (G47.33):??Ordered CPAP ?? H/O renal cell cancer (Z85.528):??Status post??nephrectomy Continue outpatient follow up??with??urology ?? VTE Prophylaxis:??SCDs for now ?? Discharge Planning:??Pending clinical course ?? Ongoing Medical Necessity:??Rectal bleeding, constipation ?? Code Status:??Full code ?Order Code Status:??Code Status Ordered ? Rectal bleeding , constipation turned to diarrhea Electronically Signed on 08/27/25 01:57 PM Vincenzo Rodriguez MD Note * Isa Shen RN: PERFORM Event Display: Discharge/Transfer Note Hospital Authored Date: [id number] Nursing Discharge Note Entered On: 08/28/2025 17:08 EST Performed On: 08/28/2025 17:07 EST by Isa Shen RN Nursing Discharge Note 2 Discharge Level of Care at Discharge : Home/Penitentiary/Foster Care Discharge Time : 08/28/2025 17:07 EST Program Services Assistant Utilized : No Patient Left Unit Via : Wheelchair Patient Accompanied Off Unit with : Responsible adult DC Instructions Provided & Signed by Pt : Yes Patient Understands D/C Instructions : Yes Patient Instructions Discharge Signed : Yes Did Pt have Specialty Bed or Wound Vac : No Isa Shen RN - 08/28/2025 17:08 EST Electronically Signed on 08/28/25 05:08 PM Isa Shen RN * Vincenzo Rodriguez MD: PERFORM Event Display: Discharge/Transfer Note Hospital Authored Date: [id number] Patient: ??CELESTE BRIGGS ? Age:??80 Years?Sex:??Male?:??1945?LOC:??[facility]?? Patient Information Discharge Location: B Primary Care Physician: Maryellen Haddad MD, Leona Dubois Admit Date/Time: 08/28/2025 09:22 Discharge Disposition Discharge Disposition: Home: No Servicesresume home services Discharge Diagnosis Rectal bleeding (K62.5) Constipation in male (K59.00) Chronic a-fib (I48.20) History of CVA (cerebrovascular accident) (Z86.73) Chronic diastolic congestive heart failure (I50.32) HLD (hyperlipidemia) (E78.5) BPH (benign prostatic hyperplasia) (N40.0) EDWARD (obstructive sleep apnea) (G47.33) H/O renal cell cancer (Z85.528) _ Discharge Medications apixaban (apixaban Starter Pack 5 mg oral tablet)??5 Milligram By Mouth 2 times a day for 30 Days Atorvastatin (atorvastatin 40 mg oral tablet)??1 tab(s) 40 Milligram By Mouth Daily DiphenhydrAMINE (Banophen 25 mg oral capsule)??1 capsule 25 Milligram By Mouth Daily at bedtime as needed as needed for itching Durable Medical Equipment (ASV EPAP 9 PS 3-15)??See Instructions ASV EPAP 9 PS 3-15, use during sleep at night and with naps Finasteride (finasteride 5 mg oral tablet)??1 tab(s) 5 Milligram By Mouth Daily Magnesium Oxide (Mag-Ox 400 400 mg oral tablet)??1 tab(s) 400 Milligram By Mouth Daily for 10 Days Metoprolol (metoprolol 25 mg oral tablet)??12.5 Milligram 0.5 tablet By Mouth 2 times a day Omeprazole (omeprazole 40 mg oral enteric coated capsule)??1 capsule 40 Milligram By Mouth Daily Polyethylene Glycol 3350 (MiraLax oral powder for reconstitution)??17 gram By Mouth Daily for 30 Days dissolve in 4 to 8 oz of beverageif you have normal bowel movement hold it Senna (senna 187 mg oral tablet)??1 tab(s) 8.6 Milligram By Mouth Daily as needed Other for 30 Daysfor constipation you should keep the consistancy ??loose torsemide (torsemide 10 mg oral tablet)??TAKE 1 TABLET BY MOUTH EVERY DAY ? Vaccinations and Immunoprophylaxis influenza virus vaccine, inactivated: 0.5 mL (08/28/25 09:00:00) tetanus-diphtheria toxoids (Td): 0.5 mL (01/11/12 22:36:00) ? Discharge Medications Changed Metoprolol (metoprolol 25 mg oral tablet)0.5 tab(s) Oral twice a day. Refills: 1. Unchanged apixaban (apixaban Starter Pack 5 mg oral tablet)5 Milligram Oral twice a day for 30 Days. Refills:6. Atorvastatin (atorvastatin 40 mg oral tablet)1 tab(s) Oral Daily. Refills: 0. DiphenhydrAMINE (Banophen 25 mg oral capsule)1 capsule Oral Daily at Bedtime as needed as needed for itching. Durable Medical Equipment (ASV EPAP 9 PS 3-15)ASV EPAP 9 PS 3-15, use during sleep at night and with naps. Refills: 0. Finasteride (finasteride 5 mg oral tablet)1 tab(s) Oral Daily. Magnesium Oxide (Mag-Ox 400 400 mg oral tablet)1 tab(s) Oral Daily for 10 Days. Refills: 0. Omeprazole (omeprazole 40 mg oral enteric coated capsule)1 capsule Oral Daily. Polyethylene Glycol 3350 (MiraLax oral powder for reconstitution)17 gram Oral Daily for 30 Days. dissolve in 4 to 8 oz of beverage if you have normal bowel movement hold it. Refills: 0. Senna (senna 187 mg oral tablet)1 tab(s) Oral Daily as needed Other for 30 Days. for constipation you should keep the consistancy loose. Refills: 0. torsemide (torsemide 10 mg oral tablet)TAKE 1 TABLET BY MOUTH EVERY DAY. Discontinued Indapamide (indapamide 2.5 mg oral tablet)2 tab(s) Oral Daily in the morning. Lisinopril (lisinopril 40 mg oral tablet)1 tab(s) Oral Daily. Allergies Allergies ?(Active and Proposed Allergies Only) aspirin? (Severity: Unknown severity, Onset: Unknown) ? Future Appointments Friday2025 1:00 PM EST ?? Type: Sleep Return With: Keyla Aranda Where: [facility] [address] [place] [phone] Status: Pending Hospital Course ?The patient is a 80 years old male with past medical history of A-fib on Eliquis, hypertension,hyperlipidemia, BPH,??renal cancer status post nephrectomy??presented to ER with a chief complaint of painless ??rectal bleeding after pushing too hard to move his bowel. he received bowel regimen and he is now having diarrhea and accidents. I stephie monitor him 1 more days of diarrhea and Rectal bleeding ? 1. ??Rectal bleeding ??(K62.5) 2. ??Constipation in male ??(K59.00) 3. ??Chronic a-fib ??(I48.20) 4. ??History of CVA (cerebrovascular accident) ??(Z86.73) 5. ??Chronic diastolic congestive heart failure ??(I50.32) 6. ??HLD (hyperlipidemia) ??(E78.5) 7. ??BPH (benign prostatic hyperplasia) ??(N40.0) 8. ??EDWARD (obstructive sleep apnea) ??(G47.33) 9. ??H/O renal cell cancer ??(Z85.528) ?? Rectal bleeding (K62.5):??Etiology: Likely straining due to constipation and hemorrhoids??, he tells me he has grade 3 hemorrhoids has constipation , had soft bowel movement in hospital without any blood , i examined the stool , no melena On physical exam,??no abdomen tenderness As per ER per the note, rectal exam??did not reveal any??active bleeding Labs showed hemoglobin 11.7 which is stabel Patient is on Eliquis at home , will resume and monitor instruction to look for warning signs? Constipation in male (K59.00):??resolved , advice to take senna if he does not go for 2 days ?? Chronic a-fib (I48.20):??Resume home meds metoprolol resume Eliquis?? I reduced metoprolol dose to 12.5 mg BID with instruction to stop if HR < 45BPM, need cardilogy follo wup ?? History of CVA (cerebrovascular accident) (Z86.73):??Resume home medication Lipitor but?? Eliquis ?? Chronic diastolic congestive heart failure (I50.32):??Resume home medicine torsemide 10 mg daily ?? HLD (hyperlipidemia) (E78.5):??Resume home medication Lipitor ?? BPH (benign prostatic hyperplasia) (N40.0):??Resume home medicine finasteride ?? EDWARD (obstructive sleep apnea) (G47.33):??Ordered CPAP ?? H/O renal cell cancer (Z85.528):??Status post??nephrectomy Continue outpatient follow up??with??urology ?? VTE Prophylaxis:??SCDs for now ?? Discharge Planning:??Pending clinical course ?? Ongoing Medical Necessity:??Rectal bleeding, constipation ?? Code Status:??Full code ?Order Code Status:??Code Status Ordered ?? I discussed plan of care with the patient at bedside. ??He verbalized??understanding and agrees to the plan??to go home??and look for??signs of excessive bleeding and report back to ED or call 911. Objective Assessment and Plan ? Measurements?? Height: 183 cm (08/28/25) Weight: 134.1 kg (08/27/25) Dry Weight: 134.1 kg (08/27/25) Body Mass Index:??40.04 kg/m2??High (08/27/25) ? Vital Signs?? Temperature: 97.6 DegF (08/28/25 10:12:00) Temperature Route: Oral (08/28/25 10:12:00) Pulse Rate: 64 bpm (08/28/25 10:12:00) Respiratory Rate: 17 br/min (08/28/25 10:12:00) Systolic Blood Pressure: 118 mm Hg (08/28/25 10:12:00) Diastolic Blood Pressure: 55 mm Hg (08/28/25 10:12:00) Blood pressure sites: Arm, left (08/28/25 10:12:00) Mean Arterial Pressure: 76 mm Hg (08/28/25 10:12:00) Pulse Pressure: 63 mm Hg (08/28/25 10:12:00) Oxygen Saturation: 100 % (08/28/25 10:12:00) Mode of Delivery (Oxygen): Room air (08/28/25 10:12:00) Early Warning Score: 8 (08/28/25 10:13:51) ? . Physical Exam Constitutional: Alert, in no acute distress. Head: Normocephalic. Eyes: Pupils are equal, round and reactive to light. Extraocular muscles intact. No pallor or scleral icterus Ear, Nose and Throat: mucous membranes moist. Ears and nose - no obvious deformities. Trachea midline. Neck: Supple, Full range of motion.No JVD or bruits. Respiratory:??Clear to auscultation. No wheezing or rhonchi.??No use of accessory muscles. No tactile fremitus.?? Cardiovascular:??PMI not visible. S1 S2 regular. No murmurs, rubs or gallops. Gastrointestinal:??Abdomen soft, non-tender, distended. Normal bowel sounds. No pulsatile mass. No hepatosplenomegaly. Genitourinary:??No costovertebral angle tenderness. Extremities: 1+??lower extremity pitting edema and chronic venous stasis changes.?No cyanosis orclubbing. Neurologic:??AAOx3, Cranial nerves II-XII grossly intact. Speech normal, no facial droop. No focal neurological deficits. Moves all extremities spontaneously. Sensation intact bilaterally.??Flexor plantar response Skin:??Chronic venous stasis changes in??bilateral lower extremities Musculoskeletal:??No gross deformities on inspection. Heme/Lymphatics:??Palpation of neck reveals no swelling or tenderness of neck nodes.?? Psychiatric: Normal mood and affect. Pending Results Add On Lab Order ordered on 08/28/2025 Add On Lab Order ordered on 08/28/2025 Follow-Up Appointments Added Follow Up ?Time Frame ?Comments Leona Haddad Patient Instructions You came in??for??rectal bleeding??likely from??passage of hard stools. You had??2 bowel movements yesterday.?? Will formed??bowel movement??today. ??No bleeding. You had a??pauses on your telemetry.?? Cross cover discussed with cardiology and recommend to go down on??metoprolol dose.?? I decreased your metoprolol to 12.5 mg 2 times a day. ??Skip your metoprolol if your heart rate??remains below 45 bpm.?? Follow-up with your cardiology. ?? If you develop severe bleeding??or clots coming out of your rectum??please stop Eliquis??and call your??PCP.?? If you cannot get immediate attention??then??come to the ED/call??911. Home Health Face to Face ^HomeHealthFTF Results Discharge Labs BLOOD COUNT & DIFF WBC 3.6 k/mm3 (Low)?? 08/28/2025 01:52 RBC 3.20 m/mm3 (Low)?? 08/28/2025 01:52 Hgb 11.1 Gm/dL (Low)?? 08/28/2025 01:52 Hct 33.2 % (Low)?? 08/28/2025 01:52 MCV 103.8 femtoliters (High)?? 08/28/2025 01:52 MCH 34.7 pg (High)?? 08/28/2025 01:52 MCHC 33.4 Gm/dL ()?? 08/28/2025 01:52 Platelet Count 123 k/mm3 (Low)?? 08/28/2025 01:52 RDW-SD 59.2 femtoliters (High)?? 08/28/2025 01:52 MPV 10.1 femtoliters ()?? 08/28/2025 01:52 Nucleated RBC (Automated) 0.0 #/100 WBC'S ()?? 08/28/2025 01:52 Abs. NRBC 0.0 k/mm3 ()?? 08/28/2025 01:52 Abs. Neut 3.1 k/mm3 ()?? 08/26/2025 19:06 Abs. Lymph 0.5 k/mm3 (Low)?? 08/26/2025 19:06 Abs. Steele 0.4 k/mm3 ()?? 08/26/2025 19:06 Abs. Eo 0.1 k/mm3 ()?? 08/26/2025 19:06 Abs. Baso 0.0 k/mm3 ()?? 08/26/2025 19:06 Neut % 75.2 % ()?? 08/26/2025 19:06 Lymph % 11.2 % (Low)?? 08/26/2025 19:06 Steele % 10.5 % ()?? 08/26/2025 19:06 Eos % 1.9 % ()?? 08/26/2025 19:06 Baso % 1.0 % ()?? 08/26/2025 19:06 Imm Gran 0.2 % ()?? 08/26/2025 19:06 Abs. Imm Gran 0.0 k/mm3 ()?? 08/26/2025 19:06 ?? CHEM GENERAL Sodium 143 mmol/L ()?? 08/28/2025 01:52 Potassium 3.4 mmol/L (Low)?? 08/28/2025 01:52 Chloride 107 mmol/L ()?? 08/28/2025 01:52 Bicarbonate Level 22 mmol/L ()?? 08/28/2025 01:52 Anion Gap 14 mmol/L ()?? 08/28/2025 01:52 Glucose Level 106 mg/dL (High)?? 08/28/2025 01:52 BUN 16 mg/dL ()?? 08/28/2025 01:52 Creatinine-Blood 0.85 mg/dL ()?? 08/28/2025 01:52 Estimated GFR Creatinine 87 ML/MIN/1.73 M2 ()?? 08/28/2025 01:52 Calcium 9.0 mg/dL ()?? 08/28/2025 01:52 Phosphorus 3.2 mg/dL ()?? 08/28/2025 01:52 Magnesium 1.6 mg/dL ()?? 08/28/2025 01:52 Protein, Total 6.2 Gm/dL ()?? 08/26/2025 19:06 Albumin 3.7 Gm/dL ()?? 08/26/2025 19:06 AG Ratio 1.5 ()?? 08/26/2025 19:06 Alkaline Phosphatase 147 units/L (High)?? 08/26/2025 19:06 AST (SGOT) 31 units/L ()?? 08/26/2025 19:06 ALT (SGPT) 12 units/L ()?? 08/26/2025 19:06 Bilirubin, Total 1.3 mg/dL (High)?? 08/26/2025 19:06 ? COAG INR 1.4 (High)?? 08/27/2025 03:20 Protime (PT) 14.1 seconds (High)?? 08/27/2025 03:20 APTT 30.1 seconds ()?? 08/26/2025 19:06 ? URINE OTHER Est Creatinine Clearance 74.92 mL/min ()?? 08/28/2025 02:58 ? 32_ minutes spent on discharge Electronically Signed on 08/28/25 10:49 AM Vincenzo Rodriguez MD * Event Display: Discharge/Transfer Note Hospital Authored Date: * Dimitris Magana RN: PERFORM Event Display: Patient Education/Instruction Authored Date: [id number] Inpatient Adult Discharge Instructions. [address] [address] Name: CELESTE BRIGGS : 1945?? Visit: 08/28/2025 09:22?? Current Date: 08/28/2025 12:59 ?? Account: [id number]?? Inpatient Adult Discharge Instructions We would like to thank you for allowing us to assist you with your healthcare needs. The following includes patient education materials and information regarding your injury/illness. Our entire staffstrives to provide an excellent experience for our patients and their families. PLEASE ENSURE YOU FOLLOW-UP PER THE INSTRUCTIONS BELOW! ?? YOUR OPINION IS IMPORTANT TO US! Please complete the survey you may receive by mail or email. Your feedback will be used to make improvements to the healthcare experiences of our patients and their families. Surveys are administered by [employer] ?? If further treatment with your primary care physician or another doctor is recommended, it is important for you to keep the appointment. Call your primary care physician or return to the Emergency Department immediately if your condition worsens, fails to improve, or new symptoms develop. If you need to find a doctor, you can call [facility] for a referral at [phone] or toll free at [phone] ([phone]) or log in to [email or web address].. ?? [facility], in keeping with [facility] guidance, no longer requires face masks for staff, patientsor visitors in most situations. Similiar to time spent indoors at other locations, there is the chance that you were exposed to repiratory viruses during your time with us (such as flu or COVID-19). If you develop symptoms concerning for a viral respiratory infection, please seek testing (and treatment if indicated) from your medical provider or home test kit. ?? You can view and manage your care through the patient portal or by using a health care [facility] of your choosing. [employer] is a website that allows you to securely view your medical information including your hospital discharge summary, office visit summaries, medications and follow-up visits. You can also request appointments, renew medications, and request access to your medical information using a health care [facility] of your choosing, or just ask a question. You are entitled to know the individuals who participated in your treatment. This information is available within your medical record and will be provided upon your request. You can enroll at [email or web address] or register d uring your next office visit. You have been discharged from [facility], Patient Care Unit: D3B??. If you have any questions regarding these instructions, including results of studies pending, afteryou leave, please call us and we will be happy to assist you 14/04. [facility] Your Care Team Attending Physician Vincenzo Rodriguez MD?? Consulting Providers Vincenzo Rodriguez MD?? Discharging Providers Vincenzo Rodriguez MD Reason for Your Visit pt c/o rectal bleeding since yesterday- on thinners. states it does not fill bowl but is present every time he wipes . pt is coming from home, has hx of hemmorhoids. denies abdominal pain/dizziness.?? Your Diagnosis Rectal bleeding Constipation in male Chronic a-fib History of CVA (cerebrovascular accident) Chronic diastolic congestive heart failure HLD (hyperlipidemia) BPH (benign prostatic hyperplasia) EDWARD (obstructive sleep apnea) H/O renal cell cancer Tests Performed Below is a partial list of the tests performed during your hospitalization. You may have had other tests and procedures not included in this list. Please discuss all test results with your provider. Basic Metabolic Panel CBC CBC w/ Differential Comprehensive Metabolic Panel INR MAGNESIUM PHOSPHORUS PT (INR) PTT Add On Lab Order?? Basic Metabolic Panel?? CBC?? CBC w/ Differential?? Comprehensive Metabolic Panel?? INR?? Magnesium Level (MAGNESIUM)?? PTT?? Phosphorus Level (PHOSPHORUS)?? Primary Care Provider Maryellen Haddad MD, Leona Dubois? Advance Directive Health Care Proxy on File Yes - Health Care Proxy Discharge Vitals Temperature: 97.6 DegF Height: 183 cm Pulse Rate: 64 bpm Weight: 134.1 kg Respiratory Rate: 17 br/min Body Mass Index:??40.04 kg/m2??High Systolic Blood Pressure: 118 mm Hg Body surface area: 2.61 Diastolic Blood Pressure: 55 mm Hg ?? Oxygen Saturation: 100 % ?? Studies Pending All studies ordered during this hospital stay have been completed unless listed below. Please discuss all pending results with your provider listed above in these instructions. ?? Add On Lab Order?? What to do next Instructions From Your Doctor You came in??for??rectal bleeding??likely from??passage of hard stools. You had??2 bowel movements yesterday.?? Will formed??bowel movement??today. ??No bleeding. You had a??pauses on your telemetry.?? Cross cover discussed with cardiology and recommend to go down on??metoprolol dose.?? I decreased your metoprolol to 12.5 mg 2 times a day. ??Skip your metoprolol if your heart rate??remains below 45 bpm.?? Follow-up with your cardiology. ?? If you develop severe bleeding??or clots coming out of your rectum??please stop Eliquis??and call your??PCP.?? If you cannot get immediate attention??then??come to the ED/call??[phone]. ?? Orders? 08/28/25 12:45:00 EST?? Scheduled Follow-Up Appointments Friday2025 1:00 PM EST ?? Type: Sleep Return With: Oanh LEONARD, Keyla Monroy Where: [facility] [address] [place] [address]- Status: Pending You Need to Schedule the Following Appointments Follow Up with??Leona Haddad ?? Where:[address] [place] [phone] (1) Discharge Medications CELESTE BRIGGS :1945 Visit Date:08/28/2025 Medications: Please continue your medications until treatment is completed or stopped by your provider. Medications not listed below should be discontinued. Discuss any questions related to medications with your provider. What How Much When Instructions Next Dose Changed Metoprolol (metoprolol 25 mg oral tablet) 0.5 tab(s) Oral Twice a day Ordering Physician: Vincenzo Rodriguez MD Pickup at [facility]/pharmacy #[id number] tonight 9pm Unchanged apixaban (apixaban Starter Pack 5 mg oral tablet) 5 Milligram Oral Twice a day Duration: 30 Days Ordering Physician: Richard Portillo MD as prescribed Unchanged Atorvastatin (atorvastatin 40 mg oral tablet) 1 tab(s) Oral Daily Ordering Physician: Nickolas Mccray MD as prescribed Unchanged DiphenhydrAMINE (Banophen 25 mg oral capsule) 1 capsule Oral Daily at Bedtime as needed for as needed for itching as prescribed Unchanged Durable Medical Equipment (ASV EPAP 9 PS 3-15) See instructions Special Instructions: ASV EPAP 9 PS 3-15, use during sleep at night and with naps Ordering Physician: Keyla Aranda ?? Unchanged Finasteride (finasteride 5 mg oral tablet) 1 tab(s) Oral Daily as prescribed Unchanged Magnesium Oxide (Mag-Ox 400 400 mg oral tablet) 1 tab(s) Oral Daily Duration: 10 Days Ordering Physician: Vincenzo Rodriguez MD Pickup at [facility]/pharmacy #[id number] as prescribed Unchanged Omeprazole (omeprazole 40 mg oral enteric coated capsule) 1 capsule Oral Daily Ordering Physician: Sydney Bardales MD as prescribed Unchanged Polyethylene Glycol 3350 (MiraLax oral powder for reconstitution) 17 gram Oral Daily Duration: 30 Days Special Instructions: dissolve in 4 to 8 oz of beverage if you have normal bowel movement hold it Ordering Physician: Vincenzo Rodriguez MD ?? Pickup at [facility]/pharmacy #0373 as prescribed Unchanged Senna (senna 187 mg oral tablet) 1 tab(s) Oral Daily as needed for Other Duration: 30 Days Special Instructions: for constipation you should keep the consistancy ??loose Ordering Physician: Vincenzo Rodriguez MD ?? Pickup at [facility]/pharmacy #[id number] as prescribed Unchanged torsemide (torsemide 10 mg oral tablet) Special Instructions: TAKE 1 TABLET BY MOUTH EVERY DAY ?? as prescribed [id number] [address] [place] [phone] ?? What How Much When Comments Stop Taking Indapamide (indapamide 2.5 mg oral tablet) 2 tab(s) Oral Daily in the morning Stop Taking Lisinopril (lisinopril 40 mg oral tablet) 1 tab(s) Oral Daily Prescription Given During Visit Magnesium Oxide (Mag-Ox 400 400 mg oral tablet) - 1 tablet = 400 mg, By Mouth, Daily, # 10 tablet, 0 Refills, [facility] [address] [place] [address] [phone]?? Metoprolol (metoprolol 25 mg oral tablet) - 0.5 tablet = 12.5 mg, By Mouth, 2 times a day, # 30 tablet, 1 Refills, [facility] [address] [place] [address] [phone]?? Polyethylene Glycol 3350 (MiraLax oral powder for reconstitution) - 17 Gm, By Mouth, Daily, # 510 Gm, 0 Refills, dissolve in 4 to 8 oz of beverageif you have normal bowel movement hold it, [facility] [address] [place] [address] [phone]?? Senna (senna 187 mg oral tablet) - 1 tablet = 8.6 mg, By Mouth, Daily, # 30 tablet, 0 Refills, for constipation you should keep the consistancy ??loose, [facility]/pharmacy #0373, [address] [place] [address] [phone]?? Laboratory Results Below is a partial list of the most recent Laboratory test results done prior to this discharge. You may have had other tests and procedures not included in this list. Please discuss all test resultswith your provider. Est Creatinine Clearance - 74.92 mL/min (08/28/2025) Basic Metabolic Panel (08/28/2025) ???Sodium - 143 mmol/L???Potassium - 3.4 mmol/L???Chloride - 107 mmol/L???Bicarbonate Level - 22 mmol/L???Anion Gap - 14 mmol/L???Glucose Level - 106 mg/dL???BUN - 16 mg/dL???Creatinine-Blood - 0.85 mg/dL???Estimated GFR Creatinine - 87 ML/MIN/1.73 M2???Calcium - 9.0 mg/dL CBC (08/28/2025) ???WBC - 3.6 k/mm3???RBC - 3.20 m/mm3???Hgb - 11.1 Gm/dL???Hct - 33.2 %???MCV - 103.8 femtoliters???MCH - 34.7 pg???MCHC - 33.4 Gm/dL???Platelet Count - 123 k/mm3???RDW-SD - 59.2 femtoliters???MPV - 10.1 femtoliters???Nucleated RBC (Automated) - 0.0 #/100 WBC'S???Abs. NRBC - 0.0 k/mm3 CBC w/ Differential (08/26/2025) ???WBC - 4.1 k/mm3???RBC - 3.36 m/mm3???Hgb - 11.7 Gm/dL???Hct - 35.2 %???MCV - 104.8 femtoliters???MCH - 34.8 pg???MCHC - 33.2 Gm/dL???Platelet Count - 135 k/mm3???RDW-SD - 59.2 femtoliters???MPV - 10.1 femtoliters???Nucleated RBC (Automated) - 0.0 #/100 WBC'S???Abs. NRBC - 0.0 k/mm3???Abs. Neut -3.1 k/mm3???Abs. Lymph - 0.5 k/mm3???Abs. Steele - 0.4 k/mm3???Abs. Eo - 0.1 k/mm3???Abs. Baso - 0.0 k/mm3???Neut % - 75.2 %???Lymph % - 11.2 %???Steele % - 10.5 %???Eos % - 1.9 %???Baso % - 1.0 %???Imm Gran - 0.2 %???Abs. Imm Gran - 0.0 k/mm3 Comprehensive Metabolic Panel (08/26/2025) ???Sodium - 141 mmol/L???Potassium - 4.4 mmol/L???Chloride - 105 mmol/L???Bicarbonate Level - 22 mmol/L???Anion Gap - 14 mmol/L???Glucose Level - 109 mg/dL???BUN - 20 mg/dL???Creatinine-Blood - 0.98 mg/dL???Estimated GFR Creatinine - 77 ML/MIN/1.73 M2???Calcium - 9.1 mg/dL???Protein, Total - 6.2 Gm/ dL???Albumin - 3.7 Gm/dL???AG Ratio - 1.5???Alkaline Phosphatase - 147 units/L???AST (SGOT) - 31 units/L???ALT (SGPT) - 12 units/L???Bilirubin, Total - 1.3 mg/dL INR (08/27/2025) ???INR - 1.4???Protime (PT) - 14.1 seconds MAGNESIUM (08/28/2025) ???Magnesium - 1.6 mg/dL PHOSPHORUS (08/28/2025) ???Phosphorus - 3.2 mg/dL PT (INR) (08/26/2025) ???INR - 1.4???Protime (PT) - 14.3 seconds PTT (08/26/2025) ???APTT - 30.1 seconds Immunizations This Visit Given Vaccine Date influenza virus vaccine, inactivated 08/28/2025 Allergies (NKA means No Known Allergies) aspirin Problems Active Problems??(17) Atrial fibrillation?? BMI 37.0-37.9, adult?? BPH (benign prostatic hyperplasia)?? Central sleep apnea with Nomi-Gray respiration?? Cerebrovascular accident?? Gastroesophageal reflux disease?? GERD (gastroesophageal reflux disease)?? Heart failure with normal ejection fraction?? Hemiplegia of nondominant side as late effect of cerebrovascular disease?? Hyperlipidemia?? Hypertension?? Longstanding persistent atrial fibrillation?? Mixed sleep apnea?? Obstructive sleep apnea?? Occlusion and stenosis of right vertebral artery?? Renal cell carcinoma?? Severe obesity?? Education Materials Below is the list of Educational Leaflet Providered with your Discharge Instructions. Valuables and Belongings I fully understand and agree that [facility] accepts no responsibility for all my personal property including clothing, toilet articles, radios, jewelry, dentures, hearing aids, rings, money, or any other property that is in my possession or is brought to me after admission. I understand certain valuables may be placed in a hospital safe for a short period of time. I understand that the hospital is not liable for loss or damage due to accident, fire, or other natural occurrence while said property is in the safe. I accept full responsibility for any personal property that I keep with me, and will not hold the hospital responsible in case of loss or disappearance. I acknowledge that i have been encouraged to send valuables and belongings home. ?? Date for Pt to Sign Valuables/Belongings: 08/26/25 22:58:00 ?? Other Discharge Information ? Pulmonary Rehab Status?? Pulmonary Rehab Discharge Status?? CPAP/BiPAP Mask Type: Full CPAP/BiPAP Mask Size: Large Respiratory Rate: 17 br/min ? Common Emergency Awareness Tips IS IT A STROKE? Act FAST and Check for these signs: FACE Does the face look uneven? ARM Does one arm drift down? SPEECH Does their speech sound strange? TIME Call at any sign of stroke ?? Heart Attack Signs Chest discomfort: Most heart attacks involve discomfort in the center of the chest and lasts more than a few minutes, or goes away and comes back. It can feel like uncomfortable pressure, squeezing, fullness or pain. Discomfort in upper body: Symptoms can include pain or discomfort in one or both arms, back, neck, jaw or stomach. Shortness of breath: With or without discomfort. Other signs: Breaking out in a cold sweat, nausea, or lightheaded. Remember, MINUTES DO MATTER. If you experience any of these heart attack warning signs, call to get immediate medical attention! ?? Smoking can increase your chances of developing chronic health problems and can cause harmful effects to other family members in your house. If you smoke, you are strongly encouraged to quit. Please call [facility] at [phone] or [phone] ([phone]) or log in to [email or web address] for referrals to smoking cessation programs. ?? 988 Suicide & Crisis Lifeline is available 14/04 if you or someone you know needs to find a reason to keep living. By calling 486 you'll be connected to a skilled, trained counselor at a crisis center in your area. INPATIENT DISCHARGE INSTRUCTIONS SIGNATURE PAGE CELESTE BRIGGS Location:[facility] Registration Date and Time:08/28/2025 09:22 EST Primary Care Physician: Maryellen Haddad MD, Leona Dubois, Attending Physician: Michael DIAZ, Vincenzo, I CHESTER ALONSO, have received the above patient education materials/instructions and have verbalized understanding. If ambulance or transport services are being used I further acknowledge beinggiven a choice of service. ?? If you need to contact me, please call me at this number: . Patient/Curriculum Director Name: Patient/Curriculum Director Signature: Relationship to Patient: Witness Name/Signature: Date: * Vincenzo Rodriguez MD: PERFORM, SIGN, VERIFY Event Display: Patient Education Handout Authored Date: Patient Care team information Care Team Personnel Name: Isa Shen RN Position: [facility] RN Member Role: Primary Care Nurse Name: Dianne Huffman RN Position: S RN Member Role: Primary Care Nurse Name: Maureen Christensen RN Position: [facility] RN Member Role: Primary Care Nurse Name: Gabriela Mishra RN Position: [facility] AMB Nurse Member Role: Primary Care Nurse Name: Maryellen Haddad MD, Leona Dubois Position: Reference Physician Member Role: PCP Address: [address] [place] [address] Telecom: Name: Annetta Juan RN Position: [facility] RN Member Role: Primary Care Nurse Care Team Related Persons Name: HEIDI CUENCA Name: ANIKA HICKMAN Name: SIRENA ZEPEDA Insurance Providers Guarantor name: EVELIN Health Plan Information #: 1 Payer: MEDICARE A INPT 26 Payer Identifier: EVELIN Member Number: [id number] Group Number: Subscriber Identifier: [id number] Relationship to Subscriber: self Coverage Type: MEDICARE Coverage Verification Date: Telecom: Address: [facility] Information #: 2 Payer: MEDEX SECONDARY ONLY Payer Identifier: EVELIN Member Number: [id number] Group Number: [id number] Subscriber Identifier: [id number] Relationship to Subscriber: self Coverage Type: Medicare Other Coverage Verification Date: Telecom: Address:
--- NOTE | ~2025-08-31 | US_ITS ---
EXAMINATION: US RETROPERITONEAL LIMITED (RENAL ONLY) CLINICAL INFORMATION: Renal cell carcinoma. Status post left nephrectomy.. COMPARISON: Correlated to MRI abdomen dated January 26, 2025 TECHNIQUE: Real-time ultrasound of the kidneys using grayscale and color Doppler technique. FINDINGS: RIGHT KIDNEY: 13 x 6 x 5 cm (SAG x AP x TRV). Normal echotexture. Renal cortical thickness is normal. No hydronephrosis. There is a 1.8 cm exophytic isoechoic lesion in the lower pole without flow on color Doppler interrogation. LEFT KIDNEY: Nephrectomy. US/US renal BI IMPRESSION: 1.8 cm lesion, lower pole right kidney. Malignancy cannot be excluded. Recommend dedicated IV contrast enhanced MRI versus CT renal mass protocol. Electronically signed by: John Fernando MD 08/31/2025 03:08 PM [facility]
[2025-08-31 16:40] LABS: Blood Urea Nitrogen 15 mg/dL (9-16); Estimated Glomerular Filt Rate > 60
[2025-08-31 17:18] LABS: Prostate Specific Antigen 0.31 ng/mL (<0.05-4.0)
--- OUTSIDE RECORDS SUMMARY | 2025-08-31 21:58 | XMS_ITS | Encounter Summary ---
Author Organization [facility] Address [address] [place] [address] Care Team Providers Care Hand Tube Winder Name Role Phone Leona Hamilton MD Primary Care Prov ider Reason for Visit * Reason Onset Date Comments Transitional Care Management 08/30/2025 Encounter Details Date Type Department Care Team ([facility] st Contact Info) Description 08/30/2025 Telephone Adult Medicine [address] [phone] Pauline James RN Social History Tobacco Use Types Packs/Day Years [...] care for your loved ones. For example, director child or elderly care for an older adult? [...] Date Recorded What is your living situation? Unrecognized valu e 11/05/2024 Sex and Gender Information Value Date Recorded Sex Assigned at Not on file Legal Sex Male 7:26 PM EST Gender Identity Not on file Sexual Orientation Not on file documented as of this encounter Plan of Treatment Upcoming Encounters Date Type Department Care Team (Late st Contact Info) Description 09/02/2025 10:30 AM EST Office Visit Adult Medicine [address] [phone] Marisol Gaines PA [address] [place], [place] 12/05/2025 9:55 AM EDT Office Visit [facility] [address] [facility] [address] [place] [phone] Satish Salinas MD [address] [place] [address] [place] [address] documented as of this encounter Visit Diagnoses Not on filedocumented in this encounter Care Teams Hand Tube Winder Relationship Specialty Start Date End Date Leona Hamilton MD [address] [place] [address] PCP - General Internal Medicine 05/15/22 documented as of this encounter
--- OUTSIDE RECORDS SUMMARY | 2025-08-31 21:58 | XMS_ITS ---
Author Organization [facility] [address] [place] [address] [address] [place] [address] Phone Care Team Providers Care Supervisor Cigarette Making Department Name Role Phone Leona Hamilton MD Primary Care Prov ider Chronic Care Management Status:Identified (Enrolling) Start date:08/29/2025 Enrollment reason:Referred by Care Team Related social drivers of health:Financial Risk Case Team Name Relationship Phone Trudi Olmos RN(Responsible Staff) Garbage Depot Worker Continued Care and Services Coordination
--- OUTSIDE RECORDS SUMMARY | 2025-08-31 21:58 | XMS_ITS ---
Author Organization [facility] [address] [place] [address] Address [address] [place] [address] Phone Care Team Providers Care Duct Maker Name Role Phone Leona Hamilton MD Primary Care Prov ider Transitional Care Management Status:Ongoing (Active) Start date:08/28/2025 Enrollment date:08/28/2025 Enrollment reason:Identified using hospital discharge data Related social drivers of health:Financial Risk Case Team Name Relationship Phone Kenny Del Castillo LPN(Responsible Staff) Grey Stock Recorder Continued Care and Services Coordination
--- OUTSIDE RECORDS SUMMARY | 2025-08-31 21:58 | XMS_ITS | Clinical Summary ---
Author Organization [facility] [address] [facility] Address [address] [place] [address] Phone Care Team Providers Care Mix Mill Tender Name Role Phone Leona Hamilton MD Primary Care Prov ider Allergies Active Allergy Reactions Criticality Noted Date Comments Aspirin 11/15/2005 gi bleed Cephalexin Diarrhea,Rash 07/16/2024 Medications ferrous sulfate (IRON ORAL) 1 TABLET DAILY Active MAGNESIUM ORAL Take 1 Tablet by mouth every other day. 03/11/2024 Active MULTIVITAMIN ORAL 1 qd Active clotrimazole (LOTRIMIN) 1 % cream Apply to affected areas (right foot) twice daily for 2 weeks 07/16/2024 Active finasteride (PROSCAR) 5 mg tablet Take 5 mg by mouth daily. Active Lactobacillus rhamnosus GG 15 billion cell capsule, sprinkle Take 1 capsule by mouth 1 (one) time each day. 07/16/2024 Active omeprazole (PriLOSEC) [address] capsule Take 1 capsule (40 mg total) by mouth 1 (one) time each day. 90 each 3 11/05/2024 11/05/19 26 Active Banophen 25 mg capsule TAKE 1 CAPSULE BY MOUTH AT BEDTIME NEEDED FOR ITCHING. 90 capsule 1 11/17/2024 Active metoprolol tartrate (LOPRESSOR) 25 mg tablet TAKE 1 TABLET BY MOUTH TWICE A DAY 180 tablet 3 02/01/2025 Active torsemide (DEMADEX) 10 mg tablet TAKE 1 TABLET BY MOUTH EVERY DAY 90 tablet 1 02/28/2025 Active predniSONE (DELTASONE) 10 mg tablet Take 2 tabs PO daily for 3 days then 1 tab PO daily for 4 days 10 tablet 03/11/2025 Active atorvastatin (LIPITOR) 40 mg tablet Take 1 tablet (40 mg total) by mouth 1 (one) time each day. 90 tablet 1 04/25/2025 Active Eliquis 5 mg tablet TAKE 1 TABLET BY MOUTH TWICE A DAY 180 tablet 1 04/29/2025 Active lisinopriL (PRINIVIL,ZESTR IL) 20 mg tablet TAKE 1 TABLET BY MOUTH EVERY DAY 90 tablet 1 07/13/2025 Active Active Problems Problem Noted Date Diagnosed Date Class 2 severe obesity with serious comorbidity and body mass index (BMI) of 37.0 to 37.9 in adult 08/25/2024 (HFpEF) heart failure with preserved ejection fr action 11/20/2023 Overview (08/25/2024): Last Assessment & Plan: [...] diet monitor his weight daily. Stroke (cerebrum) 11/13/2023 Lymphedema 07/06/2021 Bilateral leg edema 05/10/2021 Incidental [...] level 07/08/2019 Hyperlipidemia 12/16/2017 Assessment & Plan (03/11/2025 1:16 PM EDT): Assessment & Plan (11/05/2024 11:56 AM EST): Currently on atorvastatin 40 mg daily. Instructed to continue taking this medication. Low-fat diet and regular activity were discussed with the patient. Orders: Lipid panel with reflex to direct LDL; Future Comprehensive metabolic panel; Future Renal cell cancer, left 12/08/2017 Overview (08/25/2024): S/p nephrectomy by Dr. Camara Renal mass, left 08/22/2017 Overview (08/25/2024): Seeing Dr. Mike and Dr. Hercules-oncology, suspect renal cell CA Atrial fibrillation 04/05/2017 Overview (08/25/2024): Chronic persistent atrial fibrillation. [...] is okay for now. Assessment & Plan (03/11/2025 1:16 PM EDT): Assessment & Plan (11/05/2024 11:56 AM EST): On apixaban, Metoprolol. Denies any chest pain, palpitations or dizziness. Continue same medications. He follows regularly with cardiology. Pending to make an appointment. Gout 06/02/2014 Assessment & Plan (03/11/2025 1:16 PM EDT): Orders: Uric acid; Future Prediabetes 11/20/2012 Assessment & Plan (03/11/2025 1:16 PM EDT): Assessment & Plan (11/05/2024 11:56 AM EST): Patient follows the recommended diet. Will recheck an A1c before his next visit. Orders: Hemoglobin A1c; Future Stasis dermatitis 01/18/2011 GI bleed 08/24/2009 Osteoarthrosis, localized, primary, involving lo wer leg 02/10/2006 Overview (08/25/2024): Right knee IMO Update Fall 2015 Essential hypertension, benign 11/27/2005 Assessment & Plan (03/11/2025 1:16 PM EDT): Esophageal reflux 11/15/2005 Encounters Date Type Department Care Team Description 08/30/2025 Telephone Adult Medicine [address] [phone] Pauline James RN from Last 3 Months Immunizations Immunization Administration Dates Next Due Influenza trivalent, 0.5mL [...] ular pertussis (Boostrix; Adacel) 7yo and older 03/28/2025,01/26/2015 Surgical History Surgery Date Site/Laterality Comments TONSILLECTOMY [...] Date Smoking Tobacco: Former Smokeless Tobacco: Never Tobacco Cessation:Counseling Given: Not Answered Alcohol Use Standard Drinks/Week Comments Not Currently [...] care for your loved ones. For example, children teacher or elderly care for an older adult? [...] on file Sexual Orientation Not on file Last Filed Vital Signs Vital Sign Reading Time Taken Comments Blood Pressure 135/63 03/28/2025 1:26 PM EDT Pulse 63 03/28/2025 1:26 PM EDT Temperature 36.7 C (98 F) 03/28/2025 1:26 PM EDT Respiratory Rate 16 03/28/2025 1:26 PM EDT Oxygen Saturation 96% 03/11/2025 12:52 PM EDT Inhaled Oxygen Concentration - - Weight 131 kg (288 lb) 03/28/2025 1:26 PM EDT Height 182.9 cm (6') 03/28/2025 1:26 PM EDT Body Mass Index 39.06 03/28/2025 1:26 PM EDT Plan of Treatment Upcoming Encounters Date Type Department Care Team (Late st Contact Info) Description 09/02/2025 10:30 AM EST Office Visit Adult Medicine [address] [phone] Marisol Gaines PA [address] [place], [place] 12/05/2025 9:55 AM EDT Office Visit [facility] [address] [facility] [address] [place] [phone] Satish Salinas MD [address] [place] [address] [place] [phone] Health Maintenance Due Date Last Done Comments Zoster Vaccines (1 of 2) 1964 RSV Immunization Adult Patients (1 - 1-dose 75+ series) 2019 Medicare Annual Wellness Visit 08/24/2022 Depression Screening 09/22/2024 06/22/2024 COVID-19 Vaccine ( season) 2025 08/29/2022, 08/30/2021, 12/27/2020 Influenza Vaccine (#1) 2025 , 07/08/2023, 08/21/2022, Additional history exists Falls Risk Assessment 07/16/2025 07/16/2024 Social Influencers of Health Screening 11/05/2025 11/05/2024 Hypertension/CHF/CAD Annual BMP Blood Test 03/28/2026 03/28/2025, 06/22/2024, 06/22/2024, Additional history exists Cholesterol Screening (Lipid Panel) 03/28/2030 03/28/2025, 06/22/2024, 06/22/2024 DTaP,Tdap,and Td Vaccines (4 - Td or Tdap) 03/28/2035 03/28/2025, 01/26/2015, 01/11/2012 Pneumococcal Vaccine: 50+ Years Completed 01/26/2015, 01/18/2011 HIB Vaccines Aged Out No longer eligi [...] Procedure Name Priority Date/Time Associated Diagnosis Comments COMPREHENSIVE METABOLIC PANEL Routine 03/28/2025 2:03 PM EDT Primary hypertension Mixed hyperlipidemia LIPID PANEL WITH REFLEX TO DIRECT LDL Routine 03/28/2025 2:03 PM EDT Primary hypertension Mixed hyperlipidemia FALLS RISK ASSESSMENT Routine 07/16/2024 DEPRESSION SCREENING Routine 06/22/2024 from Last 3 Months or Most Recently Relevant to Health Maintenance Results * (ABNORMAL) Lipid panel with reflex to direct LDL (03/28/2025 2:03 PM EDT) Cholesterol 87 0 - 200 mg/dL LAB CHEMISTRY METHOD 03/28/2025 5:03 PM [facility] Triglycerides 57 0 - 150 mg/dL LAB CHEMISTRY METHOD 03/28/2025 5:03 PM [facility] HDL 35(L) >=40 mg/dL LAB CHEMISTRY METHOD 03/28/2025 5:03 PM [facility] LDL Calculated 41 0 - 100 mg/dL LAB CHEMISTRY METHOD 03/28/2025 5:03 PM [facility] VLDL Cholesterol Eric 11.4 mg/dL LAB CHEMISTRY METHOD 03/28/2025 5:03 PM [facility] Non HDL Chol. (LDL+VLDL) 52 <145 mg/dL LAB CHEMISTRY METHOD 03/28/2025 5:03 PM [facility] Chol/HDL Ratio 2.5 0.0 - 4.4 LAB CHEMISTRY METHOD 03/28/2025 5:03 PM [facility] Blood Venous blood specimen / Unknown Venipuncture / Unknown 03/28/2025 2:03 PM EDT 03/28/2025 2:03 PM EDT us Leona Hamilton MD LAB BLOOD ORDERABL ES Final Result [facility] [address] [place] [address], * (ABNORMAL) Comprehensive metabolic panel (03/28/2025 2:03 PM EDT) Sodium 139 133 - 145 mmol/L LAB CHEMISTRY METHOD 03/28/2025 5:03 PM [facility] Potassium 3.9 3.5 - 5.5 mmol/L LAB CHEMISTRY METHOD 03/28/2025 5:03 PM [facility] Chloride 106 96 - 110 mmol/L LAB CHEMISTRY METHOD 03/28/2025 5:03 PM [facility] CO2 27 21 - 32 mmol/L LAB CHEMISTRY METHOD 03/28/2025 5:03 PM [facility] Anion Gap 6 3 - 11 LAB CHEMISTRY METHOD 03/28/2025 5:03 PM [facility] Glucose 99 70 - 100 mg/dL LAB CHEMISTRY METHOD 03/28/2025 5:03 PM [facility] BUN 15 5 - 25 mg/dL LAB CHEMISTRY METHOD 03/28/2025 5:03 PM [facility] Creatinine 1.05 0.70 - 1.30 mg/dL LAB CHEMISTRY METHOD 03/28/2025 5:03 PM [facility] eGFR 72 >=60 mL/min/1. 73m2 LAB CHEMISTRY METHOD 03/28/2025 5:03 PM [facility] Comment:Calculation based on the Chronic Kidney Disease Epidemiology Collaboration (CKD-EPI) equation refit without adjustment for race. BUN/Creatinine Ratio 14.3 LAB CHEMISTRY METHOD 03/28/2025 5:03 PM [facility] Calcium 8.6 8.5 - 10.5 mg/dL LAB CHEMISTRY METHOD 03/28/2025 5:03 PM [facility] AST (SGOT) 26 10 - 42 unit/L LAB CHEMISTRY METHOD 03/28/2025 5:03 PM [facility] ALT (SGPT) 26 10 - 60 unit/L LAB CHEMISTRY METHOD 03/28/2025 5:03 PM [facility] Alkaline Phosphatase 233(H) 42 - 121 unit/L LAB CHEMISTRY METHOD 03/28/2025 5:03 PM [facility] Total Protein 6.8 6.0 - 8.0 g/dL LAB CHEMISTRY METHOD 03/28/2025 5:03 PM [facility] Albumin 3.5 3.2 - 5.0 g/dL LAB CHEMISTRY METHOD 03/28/2025 5:03 PM [facility] Total Bilirubin 2.0(H) 0.0 - 1.4 mg/dL LAB CHEMISTRY METHOD 03/28/2025 5:03 PM [facility] Blood Venous blood specimen / Unknown Venipuncture / Unknown 03/28/2025 2:03 PM EDT 03/28/2025 2:03 PM EDT Leona Hamilton MD LAB BLOOD ORDERABL ES Final Result [facility] [address] [place] [address], * Falls Risk Assessment (07/16/2024) Pathologist [facility] Falls Risk Assessment abstracted Historical Provider HEALTH MAINTENANCE Final Result * Depression Screening (06/22/2024) HM Depression Screening abstracted us Historical Provider HEALTH MAINTENANCE Final Result from Last 3 Months or Most Recently Relevant to Health Maintenance Insurance MEDICARE [facility] Advance Directives Documents on File Type Date Recorded Patient Paediatric Surgeon Expl anation Health Care Decision (hx) 09/25/2023 HE ALTH CARE PROXY Health Care Decision (hx) 09/25/2023 HE ALTH CARE PROXY Health Care Decision (hx) 09/25/2023 HE ALTH CARE PROXY Care Teams Mix Mill Tender Relationship Specialty Start Date End Date Leona Hamilton MD [address] [place] [phone] PCP - General Internal Medicine 05/15/22
== END 2025-08-31 14:06 | disposition home or self-care (01) ==
LOC: HO.US 14:05
PROVIDERS: Visit Provider Urology
DX: N28.1 Cyst of kidney, acquired (principal); N40.1 Benign prostatic hyperplasia with lower urinary tract symptoms; N13.8 Other obstructive and reflux uropathy; C64.2 Malignant neoplasm of left kidney, except renal pelvis; Z12.5 Encounter for screening for malignant neoplasm of prostate
CPT/HCPCS: 36415; 76775; 82565; 84153; 84520

== ENCOUNTER → 2025-08-31 14:07 | Outpatient (BNV) | payer MEDICARE, SELFPAY | PROVIDERS: Visit Provider Radiology Diagnostic Radiology | DX: N28.9 Disorder of kidney and ureter, unspecified (principal); Z90.5 Acquired absence of kidney | CPT/HCPCS: 76775 ==

== ENCOUNTER 2025-09-07 11:55 | Outpatient (AMB) | payer MEDICARE, SELFPAY ==
--- OUTSIDE RECORDS SUMMARY | 2025-09-02 10:30 | XMS_ITS | Encounter Summary ---
Author Organization [facility] Address [address] [place] [id number] Care Team Providers Care Fuse Coiler Name Role Phone Leona Hamilton MD Primary Care Prov ider Reason for Referral * Consultation (Urgent) - Authorized Specialty Diagnoses / Procedures Referred By Contac t Referred To Contact Cardiology Diagnoses Chronic heart failure with preserved ejection fraction (HFpEF) (CMS/HCC V24, CMS/HCC V28) Longstanding persistent atrial fibrillation (CMS/HCC V24, CMS/HCC V28) Chronic dyspnea Nonspecific ST-T wave electrocardiographic changes Abnormal EKG Marisol Gaines PA [address] [place], [place] Phone: tel: fax: [facility] - [facility] [address] [facility] [address] [place] [address] Phone: tel: fax: Referral ID Status Reason Start Date Expiration Date Visits Requested Visits Authorized [id number] Authorized Specialty Services Required 09/02/2026 1 1 Reason for Visit * Reason Comments Hospital Follow-up [facility] Encounter Details Date Type Department Care Team ([facility] st Contact Info) Description 09/02/2025 10:30 AM EST Office Visit Adult Medicine [address] [phone] Marisol Gaines PA [address] [place], [place] Rectal bleed (Primary Dx); Chronic heart failure with preserved ejection fraction (HFpEF) (CMS/HCC V24, CMS/HCC V28); Longstanding persistent atrial fibrillation (CMS/HCC V24, CMS/HCC V28); Chronic dyspnea; Nonspecific ST-T wave electrocardiographic changes; Abnormal EKG Social History Tobacco Use Types Packs/Day Years Used Date Smoking Tobacco: Former Smokeless Tobacco: Never Tobacco Cessation:Counseling Given: Not Answered Alcohol Use Standard Drinks/Week Comments Not Currently 0 (1 standard drink = 0.6 oz pur e alcohol) Housing Instability Answer Date Recorde d Are you worried that in the next 2 months you may not have stable housing? No 09/02/2025 Food Access & Nutrition Answer Date Rec orded Do you have access to a vari ety of food including fruits and vegetables? Yes 09/02/2025 Access to Healthcare Answer Date Record ed Within the last 3 months, ho w many times did you visit the emergency department for your medical care? 1 09/02/2025 Health Literacy Answer Date Recorded How often do you need to hav e someone help you when you read instructions, pamphlets, or other written material from your doctor or pharmacy? Never 09/02/2025 Caregiver: How often do you need to have someone help you when you read instructions, pamphlets, or other written material from your doctor or pharmacy? Not on file 09/02/2025 Financial Risk Answer Date Recorded How hard is it for you to pa y for the very basics like food, housing, medical care, and air conditioning / heating? Not very hard 09/02/2025 Transportation Answer Date Recorded Has the lack of transportati on kept you from meetings, work, or from getting things needed for daily living? No Has the lack of transportati on kept you from medical appointments or from getting medications? No 09/02/2025 Social Isolation Answer Date Recorded How often do you feel lonely or isolated from th ose around you? Never 09/02/2025 Food Risk Answer Date Recorded Within the past 12 months we worried whether our food would run out before we got money to buy more. Never true 09/02/2025 Within the past 12 months th e food we bought just didn't last and we didn't have money to get more. Never true 09/02/2025 Dependent Care Answer Date Recorded Do you need help finding or paying for care for your loved ones. For example, children's nursery assistant or elderly care for an older adult? No 09/02/2025 Education Answer Date Recorded Do you think completing more education or training, like finishing a GED, going to college, or learning a trade, would be helpful for you? No 09/02/2025 Employment and Income Answer Date Recor ded During the last four weeks, have you been actively looking for work? No 09/02/2025 Living Situation Answer Date Recorded What is your living situation? Unrecognized valu e 09/02/2025 Sex and Gender Information Value Date Recorded Sex Assigned at Not on file Legal Sex Male 7:26 PM EST Gender Identity Not on file Sexual Orientation Not on file documented as of this encounter Last Filed Vital Signs Vital Sign Reading Time Taken Comments Blood Pressure 125/73 09/02/2025 10:50 AM EST Pulse 73 09/02/2025 10:50 AM EST Temperature 36.4 C (97.6 F) 09/02/2025 10:50 AM EST Respiratory Rate 16 09/02/2025 10:50 AM EST Oxygen Saturation 95% 09/02/2025 10:50 AM EST Inhaled Oxygen Concentration - - Weight 132 kg (292 lb) 09/02/2025 10:50 AM EST Height 182.9 cm (6') 09/02/2025 10:50 AM EST Body Mass Index 39.6 09/02/2025 10:50 AM EST documented in this encounter Ordered Prescriptions Prescription Sig Dispense Quantity Refills Last Filled Start Date End Date metoprolol tartrate (LOPRESSOR) 25 mg tablet Take 0.5 tablets (12.5 mg total) by mouth 2 (two) times a day. 90 tablet 09/02/2025 documented in this encounter Progress Notes * June Santacruz MA - 09/02/2025 10:30 AM EST Depression Screening Will the patient answer the depression risk questions?: Yes Over the last 2 weeks, how often have you been bothered by little interest or pleasure in doing things?: Not at all Over the last 2 weeks, how often have you been bothered by feeling down, depressed, or hopeless?: Not at all Depression Risk: 0 Additional Depression Screening PHQ -9 Depression Risk Score: 0 Screening Result: Negative Risk Category: Negative Have you fallen in the past year? no. Are you worried about falling? yes. . Social Influencers of Health Who provided answers?: Self Within the past 12 months we worried whether our food would run out before we got money to buy more.: Never true Within the past 12 months the food we bought just didn't last and we didn't have money to get more.: Never true How hard is it for you to pay for the very basics like food, housing, medical care, and air conditioning / heating?: Not very hard Are you worried that in the next 2 months you may not have stable housing?: No Do you have access to a variety of food including fruits and vegetables?: Yes Within the last 3 months, how many times did you visit the emergency department for your medical care?: 1 Has the lack of transportation kept you from meetings, work, or from getting things needed for daily living?: No Has the lack of transportation kept you from medical appointments or from getting medications?: No How often do you feel lonely or isolated from those around you?: Never How often do you need to have someone help you when you read instructions, pamphlets, or other written material from your doctor or pharmacy?: Never * HORACIO Romeor - 09/02/2025 10:30 AM EST CHIEF COMPLAINT: Hospital Follow-up ([facility]) IDENTIFIER: Shakir Luna is a 80 y.o. old male. HPI: Patient with hypertension, hyperlipidemia, prediabetes, atrial fibrillation, CHF, history of CVA onchronic anticoagulant with Eliquis presents to the office today accompanied by his cousin Chapo. On 08/26/2025 patient presented to [facility]. He experienced an episode of painless rectal bleeding after pushing to produce BM. Was provided bowel regimen and experienced diarrhea, accidents. Was admitted to the hospital. Rectal bleeding felt to be secondary to constipation, hemorrhoids. Had soft BM in the hospital without any bleeding. Stool was examined. No melena. No abdominal tenderness. CBC with stable hemoglobin. Patient to resume Eliquis and monitor for alarm symptoms. Patient ad vised to take senna as needed if no BM in 2 days. EKG with atrial fibrillation. Left axis deviation. Pulmonary disease pattern. Nonspecific ST and T wave abnormality also seen previously although nowmore evident in inferior and anterior leads. Patient experienced a pause on telemetry. Cardiology was consulted. Metoprolol dosing was decreased from 25 mg to 12.5 mg twice daily with instructions tostop if heart rate less than 45 bpm. Patient advised to follow-up with cardiology. Discharged on 08/28/2025. TCM nurse out reach made. Patient has not had any further episodes of rectal bleeding. No blood when wiping following BM. No blood in the toilet bowl following BM. No blood coating the stools. No black or dark tarry stools. Patient had normal BM today. No straining. No abdominal pain. No fever or chills. Chronic leg swelling. Denies change. No rapid weight gain. Weight slowly trending up about 4 poundsover the last 6 months. Admits to dietary indiscretion. No chest pain, pressure, tightness. No arm pain or jaw pain. No nausea or vomiting. No diaphoresis.Denies feeling short of breath at present. Though he does endorse 3 months of episodic shortness ofbreath. He notes that with activity he feels like he is going to run out of gas . He notes that if he walks for about a minute he will become short of breath and has to sit and rest. He has not counted cardiology regarding these chronic symptoms. Was scheduled to see cardiology on 07/12/2025 and canceled. Not yet rescheduled rescheduled until 12/05/2025. No wheezing. No coughing. No fever or chills. No acute URI symptoms. Non-smoker. ROS: GENERAL: No unintentional weight loss. No night sweats. No fever or chills. HEENT: No changes in hearing or vision, nose bleeds or other nasal problems RESPIRATORY: See HPI. No hemoptysis. CARDIOVASCULAR: See HPI GI: See HPI SKIN: Chronic venous stasis of bilateral lower legs NEURO: No persistent headache, syncope, seizures, weakness or numbness PAST MEDICAL HISTORY: Patient Active Problem List Diagnosis Date Noted Chronic dyspnea 09/02/2025 Class 2 severe obesity with serious comorbidity and body mass index (BMI) of 37.0 to 37.9 in adult 08/25/2024 (HFpEF) heart failure with preserved ejection fraction ([facility] [place], [facility] V28) 11/20/2023 Stroke (cerebrum) ([facility] [place]24, [facility] V28) 11/13/2023 Lymphedema 07/06/2021 Bilateral leg edema 05/10/2021 Incidental lung nodule, greater than or equal to 8mm 10/04/2020 Abnormal chest x-ray 02/22/2020 Elevated alkaline phosphatase level 07/08/2019 Hyperlipidemia 12/16/2017 Renal cell cancer, left ([facility] [place], [facility] V28) 12/08/2017 Renal mass, left 08/22/2017 Atrial fibrillation ([facility] [place]24, [facility] V28) 04/05/2017 Gout 06/02/2014 Prediabetes 11/20/2012 Stasis dermatitis 01/18/2011 GI bleed 08/24/2009 Osteoarthrosis, localized, primary, involving lower leg 02/10/2006 Essential hypertension, benign 11/27/2005 Esophageal reflux 11/15/2005 SOCIAL HISTORY: Social History Tobacco Use Smoking status: Former Smokeless tobacco: Never Substance Use Topics Alcohol use: Not Currently FAMILY HISTORY: No family status information on file. Family History[1] ACTIVE MEDICATIONS: Medications Taking[2] ALLERGIES: Aspirin and Cephalexin PHYSICAL EXAM: Blood pressure 125/73, pulse 73, temperature 36.4 ??C (97.6 ??F), temperature source Temporal, resp. rate 16, height 1.829 m (72 ), weight 132 kg (292 lb), SpO2 95%. Body mass index is 39.6 kg/m??. BMI is greater than 25.0 (above the normal range) - see Plan APPEARANCE: Alert and in no acute distress, appears comfortable EYES: Conjunctiva and sclera normal. EARS: External ears normal. Canals clear. TMs normal. NOSE/SINUS: Nares normal. Mucosa normal. No drainage. MOUTH/THROAT: No stridor. No tripoding. No dysphonia/hoarseness. No trismus. HEART: Irregularly irregular rhythm. Rate controlled. No murmurs appreciated. LUNG: Patient is speaking in clear sentences. No increased work of breathing is appreciated or accessory muscle use. Lungs are clear to auscultation EXTREMITIES: Extremities adequately perfused. Trace to 1+ lower extremity edema with chronic venousstasis changes. NEURO: Awake, alert and oriented x 3. LABS: Wt Readings from Last 5 Encounters: 09/02/25 132 kg (292 lb) 03/28/25 131 kg (288 lb) 03/11/25 131 kg (288 lb 6.4 oz) 03/03/25 130 kg (287 lb) 11/23/24 129 kg (284 lb 3.2 oz) Lab Results Component Value Date CREATININE 1.05 03/28/2025 BUN 15 03/28/2025 NA 139 03/28/2025 K 3.9 03/28/2025 CL 106 03/28/2025 CO2 27 03/28/2025 Lab Results Component Value Date HGBA1C 6.0 03/28/2025 IMPRESSION: 1. Rectal bleed 2. Chronic heart failure with preserved ejection fraction (HFpEF) (CMS/HCC V24, CMS/HCC V28) 3. Longstanding persistent atrial fibrillation (CMS/HCC V24, CMS/HCC V28) 4. Chronic dyspnea 5. Nonspecific ST-T wave electrocardiographic changes 6. Abnormal EKG PLAN: Rectal bleeding: Resolved. Incorporate fiber into diet. Maintain adequate hydration. Continue with senna as needed for constipation. Avoid straining to pass stools. Continue Eliquis as instructed. Patient will continue to closely monitor for alarm symptoms. Weight steadily trending up over the last 6 months. No rapid weight gain. Leg edema chronic and unchanged. Lungs CTA. Advised low-sodium diet, leg elevation, portion control, efforts toward weight loss. Patient will continue torsemide as instructed. Patient requires cardiology follow-up. Patient experienced a pause while on telemetry and cardiology was consulted. Metoprolol dosing was reduced. BP adequately controlled. Rate controlled. Patient will continue metoprolol at current dosing. Requires follow-up with cardiology. Patient also endorsing chronic dyspnea for 3 months with walking short distances. No associated chest pain, pressure, tightness. No nausea or vomiting. No diaphoresis. No arm pain or jaw pain. Was scheduled to see cardiology in June and canceled. EKG in the ER with atrial fibrillation, left axis deviation, T wave changes. In comparison to tracing from 02/19/2024 T wave flattening now seen in lead III and aVF and also with T wave changes in anterior leads. Patient requires urgent follow-up with cardiology for consideration of stress test. Strict return precautions discussed with patient. With any chest pain, pressure, tightness, fatigue, weakness, nausea, vomiting, diaphoresis, arm pain, jaw pain, dizziness, lightheadedness, near-syncope, syncope, abdominal pain, indigestion, rectal bleeding, hematuria, hemoptysis, hematemesis, significant bruising, uncontrolled bleeding, high fever, shaking chills, persistent cough, persistent wheezing, rapid weight gain, significant leg swelling, or worsening of chronic dyspnea patient to present immediately to the ER. Patient understands and agrees to plan. Patient will return to the office for close follow-up with PCP. Orders Placed This Encounter Procedures Ambulatory referral to Cardiology Pause on telemetry during hospitalization at [facility] from 08/26 to 08/28/2025. CHF. Dyspnea on exertion for 3 months. EKG changes. Standing Status: Future Expiration Date: 09/02/2026 Referral Priority: Urgent Referral Type: Consultation Referral Reason: Specialty Services Required Requested Specialty: Cardiology Number of Visits Requested: 1 ADDITIONAL ORDERS: AMB REFERRAL TO CARDIOLOGY HORACIO Romero on 09/02/2025 at 12:26 PM EST [1] No family history on file. [2] Outpatient Medications Marked as Taking for the 09/02/25 encounter (Office Visit) with HORACIO Romero Medication Sig Dispense Refill atorvastatin (LIPITOR) 40 mg tablet Take 1 tablet (40 mg total) by mouth 1 (one) time each day. 90 tablet 1 Banophen 25 mg capsule TAKE 1 CAPSULE BY MOUTH AT BEDTIME NEEDED FOR ITCHING. 90 capsule 1 clotrimazole (LOTRIMIN) 1 % cream Apply to affected areas (right foot) twice daily for 2 weeks Eliquis 5 mg tablet TAKE 1 TABLET BY MOUTH TWICE A DAY 180 tablet 1 ferrous sulfate (IRON ORAL) 1 TABLET DAILY finasteride (PROSCAR) 5 mg tablet Take 5 mg by mouth daily. Gavilax 17 gram/dose oral powder DISSOLVE 17 GM IN 4 TO 8 OZ OF BEVERAGE AND DRINK DAILY HOLD IF YOU HAVE NORMAL BOWEL MOVEMENT *OTC Lactobacillus rhamnosus GG 15 billion cell capsule, sprinkle Take 1 capsule by mouth 1 (one) time each day. lisinopriL (PRINIVIL,ZESTRIL) 20 mg tablet TAKE 1 TABLET BY MOUTH EVERY DAY 90 tablet 1 magnesium oxide (MagOx) 400 mg (241.3 elemental magnesium) tablet Take 1 tablet (400 mg total) by mouth. metoprolol tartrate (LOPRESSOR) 25 mg tablet Take 0.5 tablets (12.5 mg total) by mouth 2 (two) times a day. 90 tablet 0 MULTIVITAMIN ORAL 1 qd omeprazole (PriLOSEC) [address] capsule Take 1 capsule (40 mg total) by mouth 1 (one) time each day.90 each 3 senna (SENOKOT) 8.6 mg tablet Take 1 tablet (8.6 mg total) by mouth. torsemide (DEMADEX) 10 mg tablet TAKE 1 TABLET BY MOUTH EVERY DAY 90 tablet 1 [DISCONTINUED] MAGNESIUM ORAL Take 1 Tablet by mouth every other day. [DISCONTINUED] metoprolol tartrate (LOPRESSOR) 25 mg tablet TAKE 1 TABLET BY MOUTH TWICE A DAY 180 tablet 3 [DISCONTINUED] predniSONE (DELTASONE) 10 mg tablet Take 2 tabs PO daily for 3 days then 1 tab PO daily for 4 days 10 tablet 0 documented in this encounter Plan of Treatment Upcoming Encounters Date Type Department Care Team (Late st Contact Info) Description 12/02/2025 11:15 AM EDT Office Visit Adult Medicine [address] [phone] Leona Hamilton MD [address] [place] [address] 12/05/2025 9:55 AM EDT Office Visit [facility] [address] [facility] [address] [place] [phone] Satish Salinas MD [address] [place] [address] [place] [phone] Scheduled Referrals Name Type Priority Associated Diagnoses Orde r Schedule Ambulatory referral to Cardiology Outpatient Referral Routine Chronic heart failure with preserved ejection fraction (HFpEF) (CMS/HCC V24, CMS/HCC V28) Longstanding persistent atrial fibrillation (CMS/HCC V24, CMS/HCC V28) Chronic dyspnea Nonspecific ST-T wave electrocardiographic changes Abnormal EKG 1 Occurrences starting 09/02/2025 until 09/02/2026 documented as of this encounter Visit Diagnoses Diagnosis Rectal bleed- Primary Hemorrhage of rectum and anus Chronic heart failure with preserved ejection fraction (HFpEF) ([facility] V24, [facility] V28[facility] Longstanding persistent atrial fibrillation ([facility] V24, [facility] V28) Chronic dyspnea Nonspecific ST-T wave electrocardiographic changes Nonspecific abnormal electrocardiogram (ECG) (EKG) Abnormal EKG Nonspecific abnormal electrocardiogram (ECG) (EKG) documented in this encounter Discontinued Medications Medication Sig Discontinue Reason Start Date End Da te metoprolol tartrate (LOPRESSOR) 25 mg tablet TAKE 1 TABLET BY MOUTH TWICE A DAY 02/01/2025 09/02/2025 MAGNESIUM ORAL Take 1 Tablet by mouth every other day. Duplicate order 03/11/2024 09/02/2025 predniSONE (DELTASONE) 10 mg tablet Take 2 tabs PO daily for 3 days then 1 tab PO daily for 4 days Therapy completed 03/11/2025 09/02/2025 documented as of this encounter Historical Medications * This list may reflect changes made after this encounter. senna (SENOKOT) 8.6 mg tablet Take 1 tablet (8.6 mg total) by mouth. 08/27/2025 09/26/2025 Gavilax 17 gram/dose oral powder DISSOLVE 17 GM IN 4 TO 8 OZ OF BEVERAGE AND DRINK DAILY HOLD IF YOU HAVE NORMAL BOWEL MOVEMENT *OTC 08/27/2025 magnesium oxide (MagOx) 400 mg (241.3 elemental magnesium) tablet Take 1 tablet (400 mg total) by mouth. 08/27/2025 09/06/2025 added in this encounter Additional Health Concerns Assessment Noted Time PHQ-9 Depression Total Score: 0 09/02/20 25 10:49 AM EST A fall risk assessment has been complete d for the patient 09/02/2025 10:49 AM EST documented as of this encounter Care Teams Fuse Coiler Relationship Specialty Start Date End Date Leona Hamilton MD [address] [place] [phone] PCP - General Internal Medicine 05/15/22 documented as of this encounter
--- NOTE | 2025-09-07 11:56 | A.OFFVIS_ITS ---
Intake Visit Reasons: 6M US/PSA(SET) Intake Note: Reason for Visit: Ultrasound/PSA Urology Meds: Finasteride Blood Thinners: eliquis Labs: PSA: 0.31 (08/31/2025) Last PSA: 0.29 (2021) Imaging: Renal Ultrasound: 08/31/2025 Last PVR: 0ml Cell Inspector Required: No Accompanied by: Self / Same As Patient Allergies aspirin (ASPIRIN) Adverse Reaction (Severe, Verified 09/07/25 11:56) GI BLEED HPI Comments Details: Shakir is a pleasant male. He is a patient of Dr. Haddad. He seen for the following urologic issues - renal cancer - lower urinary tract symptoms - on tamsulosin Six-month follow-up Telemedicine Evaluation 15 min Consultation [employer] [place] Video Imaging shows stable lesion. Follow-up 6 month 09/15 renal ultrasound 1.8 cm 02/13 renal MRI 1.5 cm T2 nodule right lower pole - Suggest ultrasound surveillance Stroke Sep 2209/2023 On lasix for fluid retention Nocturia x2 Continue surveillance - consider yearly labs and cross sectional imaging every 2 years starting at 5 yr post procedure Did mention has leakage at the end of urination Trial Flomax Lower urinary tract symptoms Remains on finasteride Renal cancer. Nephrectomy 12/0718 Grade pT3a with neoadjuvant sutent Good renal function Continue with imaging surveillance They present for continued followup and management, left side, renal cancer. The renal mass was diagnosed during evaluation for, hematuria 07/08 in hospital. Imaging included 07/08 , a CT (computed tomography) scan of the abdomen/pelvis - , showing a solid mass, >5.9 cm in size, on the left (8cm), no brad enlargement 09/07 , a CT (computed tomography) scan of the abdomen/pelvis partial reduction on a solid mass. Improvement of inflammation. Minimal brad involvement.. Prior treatment(s) included 12/07 , nephrectomy. Staging of initial cancer T2, with no positive lymph nodes, without vena cava involvement, without metastasis - 07/08 CT chest - no nodules - 07/08 - Bone Scan negative 12/07 pT3aN0 - sutent pre and post op The diagnosis was renal cell carcinoma, Grade IV - extension into gerotas space, margin negative. Recent labs include 12/07 , a creatinine 0.88 03/09 C 1.05 01/08 Cr 1.09 stable, 07/10 1.2, 09/11 Cr 1.1, 02/10 1.0 Follow up imaging includes 03/09 , abdominal CT scan, chest xray, stable post intervention changes 09/08 , chest xray, renal US - NAD 01/08 CT imaging stable abdo/chest - 07/10 CT imaging chest stable, 08/11 chest x-ray and renal ultrasound normal, 02/09 - CT scan stable, 02/[address] normal - 08/13 CXR NAD - 06/14 5 yr imaging MRI - Status post left nephrectomy. No evidence of a right renal tumor or metastatic disease within the abdomen.* Large hiatal hernia Plan - - Recommended surveillance will include?clinical assessment, blood biochemistry, and chest x-ray every 6 months for 3 years then yearly. 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) Alcohol intake: current Alcohol intake frequency: holidays/special occasions only Patient Tobacco Use Status: Never used Tobacco service: Yes Current occupational status: retired Review of Systems Const All systems reviewed & are unremarkable except as noted in HPI and below Reports no additional complaints Resp Reports no additional complaints GI Reports no additional complaints Reports as per HPI Musc Reports no additional complaints Physical Exam Telemedicine evaluation Appropriate responses Regular breathing rate and rhythm HEENT Head: Yes normal to inspection Ears: hearing grossly normal bilaterally Eyes General: appearance normal, both eyes and all related structures Neck Neck: Yes normal visual inspection Chest Chest palpation & inspection: normal inspection of the chest Resp Effort & Inspection: normal respiratory effort and able to speak in complete sentences Telehealth Telehealth Telehealth Platform: [employer] Location of provider rendering services: practice address Location of patient: address on file Patient Identification confirmed using: Name, : Yes Telehealth method: video Patient verbally consented to treatment: Yes Patient verbally consented to billing insurance company: Yes Patient informed of any privacy concerns related to visit: Yes Minutes spent on Phone/Video with Pt.: 15 Assessment & Plan Assessment & Plan (1) Renal cell cancer: Comment: left Nx 11/2017 - pT3a neoadjuvant therapy Code(s): C64.9 - Malignant neoplasm of unspecified kidney, except renal pelvis Category: Medical Qualifiers: Laterality: left Qualified Code(s): C64.2 - Malignant neoplasm of left kidney, except renal pelvis (2) BPH w urinary obs/LUTS: Code(s): N40.1 - Benign prostatic hyperplasia with lower urinary tract symptoms; N13.8 - Other obstructive and reflux uropathy Category: Medical Plan Trial Flomax Six-month follow-up imaging Orders: Orders Prostate Specific Antigen 08/31/25 N13.8 - Other obstructive and reflux uropathy, N40.1 - Benign prostatic hyperplasia with lower urinary tract symptoms US renal BI 6 Months C64.2 - Malignant neoplasm of left kidney, except renal pelvis Medications: New tamsulosin 0.4 mg PO BEDTIME 30 tabs 1RF 30 days N13.8 - Other obstructive and reflux uropathy, N40.1 - Benign prostatic hyperplasia with lower urinary tract symptoms Patient Instructions: This note is constructed using voice recognition software. While every effort has been made to ensure accuracy armored machine operator errors may have been included. Imaging studies, laboratory and physical exam results were discussed and reviewed in detail. No major barriers to patient understanding were identified. An opportunity to ask questions regarding the treatment plan was provided. All questions were answered. The patient expressed understanding and agreement with the above treatment plan. The patient is aware they should contact our office by phone for worsening of their current condition or the appearance of new urologic symptoms. Compliance is encouraged with any medications and followup testing that is ordered. It is a privilege to participate in the urologic care of your patient. If you have any questions or concerns regarding treatment for the above conditions, or other urologic issues, please do not hesitate to contact me. The office telephone contact is [phone]. Sincerely, Dr Carlos Camara MD, [facility] - Urology Compassionate Specialist Care for the Genitourinary System Coding Level of Care Code Tele Est Pt Level 4 (28556) Add On Problem Visit Only Diagnoses Renal cell carcinoma of left kidney C64.2 Laterality: left BPH w urinary obs/LUTS N40.1; N13.8
--- OUTSIDE RECORDS SUMMARY | 2025-09-07 15:49 | XMS_ITS ---
Author Organization [facility] [address] [facility] Address [address] [place] [address] Phone Care Team Providers Care Procedure Manager Name Role Phone Leona Hamilton MD Primary Care Prov ider Chronic Care Management Status:Ongoing (Active) Start date:08/29/2025 Enrollment date:09/06/2025 Enrollment reason:Referred by Care Team Related social drivers of health:Financial Risk Case Team Name Relationship Phone Trudi Olmos RN(Responsible Staff) Drink Mixer Continued Care and Services Coordination
--- OUTSIDE RECORDS SUMMARY | 2025-09-07 15:49 | XMS_ITS ---
Author Name [facility] Organization Unknown Care Team Organization Name Specialty Phone Email Start Date End Da te [facility] ACO 05/11/2025 [facility] Leona Mueller Primary Care 05/29/2023 05/10/2024 [facility] Kushal Cavazos Primary Care 11/27/2022 [facility] Lewis, MARY Primary Care 07/30/202204/22
--- OUTSIDE RECORDS SUMMARY | 2025-09-07 15:49 | XMS_ITS | Encounter Summary ---
Author Organization [facility] Address [address] [place] [address] Care Team Providers Care Manager Student Services Name Role Phone Leona Hamilton MD Primary Care Prov ider Reason for Visit * Reason Onset Date Comments Transitional Care Management 08/30/2025 Encounter Details Date Type Department Care Team ([facility] st Contact Info) Description 08/30/2025 Telephone Adult Medicine [address] [phone] Pauline James RN Social History Tobacco Use [...] your loved ones. For example, child and youth program assistant or elderly care for an older [...] 11:15 AM EDT Office Visit Adult Medicine [address] [phone] Leona Hamilton MD [address] [place] [address] 12/05/2025 9:55 AM EDT Office Visit [facility] - [facility] [address] [facility] [address] [place] [address] Satish Salinas MD [address] [place] [address] [place] [address] documented as of this encounter Visit Diagnoses Not on filedocumented in this encounter Care Teams Manager Student Services Relationship Specialty Start Date End Date Leona Hamilton MD [address] [place] [phone] PCP - General Internal Medicine 05/15/22 documented as of this encounter
--- OUTSIDE RECORDS SUMMARY | 2025-09-07 15:49 | XMS_ITS | Clinical Summary ---
Author Organization [facility] [address] [facility] Address [address] [place] [address] Phone Care Team Providers Care Customer Service Correspondence Clerk Name Role Phone Leona Hamilton MD Primary Care Prov ider Allergies Active Allergy Reactions Criticality Noted Date Comments Aspirin 11/15/2005 gi bleed Cephalexin Diarrhea,Rash 07/16/2024 Medications ferrous sulfate (IRON ORAL) 1 TABLET DAILY Active MULTIVITAMIN ORAL 1 qd Active clotrimazole (LOTRIMIN) 1 % cream Apply to affected areas (right foot) twice daily for 2 weeks 07/16/20 24 Active finasteride (PROSCAR) 5 mg tablet Take 5 mg by mouth daily. Active Lactobacillus rhamnosus GG 15 billion cell capsule, sprinkle Take 1 capsule by mouth 1 (one) time each day. 07/16/20 24 Active omeprazole (PriLOSEC) [address] capsule Take 1 capsule (40 mg total) by mouth 1 (one) time each day. 90 each 3 11/05/19 25 026 Active Banophen 25 mg capsule TAKE 1 CAPSULE BY MOUTH AT BEDTIME NEEDED FOR ITCHING. 90 capsule 1 11/17/19 25 Active torsemide (DEMADEX) 10 mg tablet TAKE 1 TABLET BY MOUTH EVERY DAY 90 tablet 1 02/29/20 25 Active atorvastatin (LIPITOR) 40 mg tablet Take 1 tablet (40 mg total) by mouth 1 (one) time each day. 90 tablet 1 04/25/20 25 Active Eliquis 5 mg tablet TAKE 1 TABLET BY MOUTH TWICE A DAY 180 tablet 1 04/29/20 25 Active lisinopriL (PRINIVIL,ZEST RIL) 20 mg tablet TAKE 1 TABLET BY MOUTH EVERY DAY 90 tablet 1 07/13/20 25 Active Gavilax 17 gram/dose oral powder DISSOLVE 17 GM IN 4 TO 8 OZ OF BEVERAGE AND DRINK DAILY HOLD IF YOU HAVE NORMAL BOWEL MOVEMENT *OTC 08/27/20 25 Active senna (SENOKOT) 8.6 mg tablet Take 1 tablet (8.6 mg total) by mouth. 08/27/20 25 026 Active metoprolol tartrate (LOPRESSOR) 25 mg tablet Take 0.5 tablets (12.5 mg total) by mouth 2 (two) times a day. 90 tablet 09/02/20 25 Active MAGNESIUM ORAL Take 1 Tablet by mouth every other day. 03/11/20 24 025 Discontinued(Du plicate order) metoprolol tartrate (LOPRESSOR) 25 mg tablet TAKE 1 TABLET BY MOUTH TWICE A DAY 180 tablet 3 02/02/20 25 025 Discontinued predniSONE (DELTASONE) 10 mg tablet Take 2 tabs PO daily for 3 days then 1 tab PO daily for 4 days 10 tablet 03/11/20 25 025 Discontinued(Th erapy completed) magnesium oxide (MagOx) 400 mg (241.3 elemental magnesium) tablet Take 1 tablet (400 mg total) by mouth. 08/27/20 25 025 Active Problems Problem Noted Date Diagnosed Date Chronic dyspnea 09/02/2025 Class 2 severe obesity [...] Encounters Date Type Department Care Team Description 09/02/2025 10:30 AM EST Office Visit Adult Medicine [address] [phone] Marisol Gaines PA Rectal bleed (Primary Dx); Chronic heart failure with preserved ejection fraction (HFpEF) (CMS/HCC V24, CMS/HCC V28); Longstanding persistent atrial fibrillation (CMS/HCC V24, CMS/HCC V28); Chronic dyspnea; Nonspecific ST-T wave electrocardiographic changes; Abnormal EKG 09/02/2025 Telephone [facility] - [address] [place] [address] Antonieta Porras MA 08/30/2025 Telephone Adult Medicine [address] [phone] Pauline James RN from Last [...] care for your loved ones. For example, childbirth and infant care teacher or elderly care for an older [...] Mass Index 39.6 09/02/2025 10:50 AM EST Plan of Treatment Upcoming Encounters Date Type Department Care Team (Late st Contact Info) Description 12/02/2025 11:15 AM EDT Office Visit Adult Medicine [address] [phone] Leona Hamilton MD [address] [place] [address] 12/05/2025 9:55 AM EDT Office Visit [facility] - [facility] [address] [facility] [address] [place] [address] Satish Salinas MD [address] [place] [address] [place] [phone] Health Maintenance Due Date Last Done Comments Zoster Vaccines (1 of 2) 1964 RSV Immunization Adult Patients (1 - 1-dose 75+ series) 2019 Medicare Annual Wellness Visit 08/24/2022 COVID-19 Vaccine ( season) 2025 08/29/2022, 08/30/2021, 12/27/2020 Hypertension/CHF/CAD Annual BMP Blood Test 03/28/2026 03/28/2025, 06/22/2024, 06/22/2024, Additional history exists Falls Risk Assessment 09/02/2026 09/02/2025, 024 Social Influencers of Health Screening 09/02/2026 09/02/2025, 11/05/2024 Cholesterol Screening (Lipid Panel) 03/28/2030 03/28/2025, 06/22/2024, 06/22/2024 DTaP,Tdap,and Td Vaccines (4 - Td or Tdap) 03/28/2035 03/28/2025, 01/26/2015, 01/11/2012 Pneumococcal Vaccine: 50+ Years Completed 01/26/2015, 01/18/2011 Influenza Vaccine Completed 08/28/2025, , 07/08/2023, Additional history exists Depression Screening Completed 09/02/2025, 06/22/20 24 HIB Vaccines Aged Out No longer eligi [...] on patient's age to complete this topic Goals Goal Patient Goal Type Associated Problems Recent Progress Patient-Stated? Author Pt will start to weigh himself daily and keep a logbook General Yes Trudi Olmos RN Procedures Procedure Name Priority Date/Time Associated Diagnosis [...] mg/dL LAB CHEMISTRY METHOD 03/28/2025 5:03 PM EDT [facility] Triglycerides 57 0 - 150 mg/dL LAB CHEMISTRY METHOD 03/28/2025 5:03 PM EDT [facility] HDL 35(L) >=40 mg/dL LAB CHEMISTRY METHOD 03/28/2025 5:03 PM EDT [facility] LDL Calculated 41 0 - 100 mg/dL LAB CHEMISTRY METHOD 03/28/2025 5:03 PM EDT [facility] VLDL Cholesterol Eric 11.4 mg/dL LAB CHEMISTRY METHOD 03/28/2025 5:03 PM EDT [facility] Non HDL Chol. (LDL+VLDL) 52 <145 mg/dL LAB CHEMISTRY METHOD 03/28/2025 5:03 PM EDT [facility] Chol/HDL Ratio 2.5 0.0 - 4.4 LAB CHEMISTRY METHOD 03/28/2025 5:03 PM EDT [facility] Blood Venous blood specimen / Unknown Venipuncture / Unknown 03/28/2025 2:03 PM EDT 03/28/2025 2:03 PM EDT us Leona Hamilton MD LAB BLOOD ORDERABL ES Final Result [facility] [address] [place] [address], [place] [phone] * (ABNORMAL) Comprehensive metabolic panel (03/28/2025 2:03 PM EDT) Sodium 139 133 - 145 mmol/L LAB CHEMISTRY METHOD 03/28/2025 5:03 PM [facility] Potassium 3.9 3.5 - 5.5 mmol/L LAB CHEMISTRY METHOD 03/28/2025 5:03 PM [facility] Chloride 106 96 - 110 mmol/L LAB CHEMISTRY METHOD 03/28/2025 5:03 PM [facility] CO2 27 21 - 32 mmol/L LAB CHEMISTRY METHOD 03/28/2025 5:03 PM [facility] Anion Gap 6 3 - 11 LAB CHEMISTRY METHOD 03/28/2025 5:03 PM [facility] Glucose 99 70 - 100 mg/dL LAB CHEMISTRY METHOD 03/28/2025 5:03 PM [facility] BUN 15 5 - 25 mg/dL LAB CHEMISTRY METHOD 03/28/2025 5:03 PM [facility] Creatinine 1.05 0.70 - 1.30 mg/dL LAB CHEMISTRY METHOD 03/28/2025 5:03 PM [facility] eGFR 72 >=60 mL/min/1. 73m2 LAB CHEMISTRY METHOD 03/28/2025 5:03 PM [facility] Comment:Calculation based on the Chronic Kidney Disease Epidemiology Collaboration (CKD-EPI) equation refit without adjustment for race. BUN/Creatinine Ratio 14.3 LAB CHEMISTRY METHOD 03/28/2025 5:03 PM [facility] Calcium 8.6 8.5 - 10.5 mg/dL LAB CHEMISTRY METHOD 03/28/2025 5:03 PM [facility] AST (SGOT) 26 10 - 42 unit/L LAB CHEMISTRY METHOD 03/28/2025 5:03 PM EDT [facility] ALT (SGPT) 26 10 - 60 unit/L LAB CHEMISTRY METHOD 03/28/2025 5:03 PM EDT [facility] Alkaline Phosphatase 233(H) 42 - 121 unit/L LAB CHEMISTRY METHOD 03/28/2025 5:03 PM EDT [facility] Total Protein 6.8 6.0 - 8.0 g/dL LAB CHEMISTRY METHOD 03/28/2025 5:03 PM EDT [facility] Albumin 3.5 3.2 - 5.0 g/dL LAB CHEMISTRY METHOD 03/28/2025 5:03 PM EDT [facility] Total Bilirubin 2.0(H) 0.0 - 1.4 mg/dL LAB CHEMISTRY METHOD 03/28/2025 5:03 PM EDT [facility] Blood Venous blood specimen / Unknown Venipuncture / Unknown 03/28/2025 2:03 PM EDT 03/28/2025 2:03 PM EDT Leona Hamilton MD LAB BLOOD ORDERABL ES Final Result [facility] [address] [place] [address], * Falls Risk Assessment (07/16/2024) Pathologist [facility] Falls Risk Assessment abstracted Historical Provider HEALTH MAINTENANCE Final Result * Depression Screening (06/22/2024) Pathologist [facility] Depression Screening abstracted Historical Provider HEALTH MAINTENANCE Final Result from Last 3 Months or Most Recently Relevant to Health Maintenance Insurance MEDICARE [place] Advance Directives Documents on File Type Date Recorded Patient Mini Shifter Expl anation Health Care Decision (hx) 09/25/2023 HE ALTH CARE PROXY Health Care Decision (hx) 09/25/2023 HE ALTH CARE PROXY Health Care Decision (hx) 09/25/2023 HE ALTH CARE PROXY Care Teams Customer Service Correspondence Clerk Relationship Specialty Start Date End Date Leona Hamilton MD [address] [place] [phone] PCP - General Internal Medicine 05/15/22
--- OUTSIDE RECORDS SUMMARY | 2025-09-07 15:49 | XMS_ITS ---
Author Organization [facility] [address] [place] [address] Address [address] [place] [address] Phone Care Team Providers Care Assistant Store Manager Name Role Phone Leona Hamilton MD Primary Care Prov ider Transitional Care Management Status:Ongoing (Active) Start date:08/28/2025 Enrollment date:08/28/2025 Enrollment reason:Identified using hospital discharge data Related social drivers of health:Financial Risk Case Team Name Relationship Phone Kenny Del Castillo LPN(Responsible Staff) Diet Therapist Continued Care and Services Coordination
--- OUTSIDE RECORDS SUMMARY | 2025-09-07 15:49 | XMS_ITS | Encounter Summary ---
Author Organization [facility] Address [address] [place] [address] Care Team Providers Care Order Make Up Clerk Name Role Phone Leona Hamilton MD Primary Care Prov ider Encounter Details Date Type Department Care Team ([facility] st Contact Info) Description 09/02/2025 Telephone [facility] - [address] [facility] [address] [place] [address] Antonieta Porras MA Social History Tobacco Use Types Packs/Day Years [...] care for your loved ones. For example, childcare center director or elderly care for an older adult? [...] on file documented as of this encounter Progress Notes * Antonieta Porras MA - 09/02/2025 1:38 PM EST PCP office called asking for a sooner appt. Patient was recently in hospital and will need to be seen sooner as there was notable EKG changes. documented in this encounter Plan of Treatment Upcoming Encounters Date Type Department Care Team (Late st Contact Info) Description 12/02/2025 11:15 AM EDT Office Visit Adult Medicine [address] [phone] Leona Hamilton MD [address] [place] [address] 12/05/2025 9:55 AM EDT Office Visit [facility] - [address] [place] [phone] Satish Salinas MD [address] [place] [address] [address] [place] [phone] documented as of this encounter Visit Diagnoses Not on filedocumented in this encounter Additional Health Concerns Assessment Noted Time PHQ-9 Depression Total Score: 0 09/02/20 25 10:49 AM EST A fall risk assessment has been complete d for the patient 09/02/2025 10:49 AM EST documented as of this encounter Care Teams Order Make Up Clerk Relationship Specialty Start Date End Date Leona Hamilton MD [address] [place] [phone] PCP - General Internal Medicine 05/15/22 documented as of this encounter
== END 2025-09-07 13:39 | disposition home or self-care (01) ==
LOC: HO.HUSH 11:55
PROVIDERS: Visit Provider Urology
DX: C64.2 Malignant neoplasm of left kidney, except renal pelvis (principal); N40.1 Benign prostatic hyperplasia with lower urinary tract symptoms; N13.8 Other obstructive and reflux uropathy
CPT/HCPCS: 99214; G2211